=== PATIENT | female | born 1950 | race Caucasian/White ===

== ENCOUNTER → 2016-12-05 | Outpatient (CLI) | payer MEDICARE, MEDICAID ==
[2016-12-05 10:11] LABS: ABSOLUTE EOSINOPHILS # (AUTO) 0.1 10^3/uL (0.0-0.6); ABSOLUTE LYMPHOCYTES (AUTO) 2.5 10^3/uL (0.5-4.7); ABSOLUTE MONOCYTES (AUTO) 0.5 10^3/uL (0.1-1.4); ABSOLUTE NEUT (AUTO) 5.1 10^3/uL (1.7-8.2); BASOPHILS % (AUTO) 0.2 % (0-2); EOSINOPHILS % (AUTO) 1.2 % (0-6); HEMATOCRIT 37.5 % (36.0-47.0); HEMOGLOBIN 12.9 g/dL (12.0-15.5); HGB HCT DIFFERENCE 1.2; LYMPHOCYTES % (AUTO) 30.5 % (13-45); MEAN CORPUSCULAR HEMOGLOBIN 30.3 pg (27.0-33.4); MEAN CORPUSCULAR HGB CONC 34.3 g/dL (32.0-36.0); MEAN CORPUSCULAR VOLUME 88 fl (80-97); MONOCYTES % (AUTO) 6.6 % (3-13); RED BLOOD COUNT 4.24 10^6/uL (3.72-5.28); RED CELL DISTRIBUTION WIDTH 14.5 % (11.5-14.0); SEGMENTED NEUTROPHILS % (AUTO) 61.5 % (42-78); WHITE BLOOD COUNT 8.3 10^3/uL (4.0-10.5)
[2016-12-05 10:14] LABS: APPEARANCE,URINE CLEAR; BILIRUBIN,URINE NEGATIVE (NEGATIVE); GLUCOSE, URINE NEGATIVE (NEGATIVE); KETONES,URINE NEGATIVE (NEGATIVE); LEUKOCYTE ESTERASE,URINE SMALL (NEGATIVE); NITRITE,URINE NEGATIVE (NEGATIVE); PROTEIN,URINE NEGATIVE (NEGATIVE); URINE SPECIFIC GRAVITY 1.015; UROBILINOGEN,URINE NEGATIVE mg/dL (<2.0)
[2016-12-05 10:39] LABS: ANION GAP 9 (5-19); BLOOD UREA NITROGEN 32 mg/dL (7-20); CALCIUM 9.1 mg/dL (8.4-10.2); CARBON DIOXIDE 27 mmol/L (22-30); CHLORIDE 105 mmol/L (98-107); CREATININE RESULT 1.08 mg/dL (0.52-1.25); GLUCOSE 104 mg/dL (75-110); POTASSIUM 4.5 mmol/L (3.6-5.0); SODIUM 140.6 mmol/L (137-145)
--- NOTE | 2016-12-05 13:39 | EKG REPORT ---
SEVERITY:- ABNORMAL ECG - SINUS BRADYCARDIA LEFT VENTRICULAR HYPERTROPHY BORDERLINE T ABNORMALITIES, INFERIOR LEADS : Confirmed by: Francisco Monsalve MD 05-Dec-2016 13:39:19
--- NOTE | 2016-12-05 14:58 | RADIOLOGY REPORT (SQ) ---
EXAM DESCRIPTION: CHEST PA/LATERAL COMPLETED DATE/TIME: 12/05/2016 9:44 am REASON FOR STUDY: PRE OP COMPARISON: 11/28/2013. EXAM PARAMETERS: NUMBER OF VIEWS: two views TECHNIQUE: Digital Frontal and Lateral radiographic views of the chest acquired. RADIATION DOSE: NA LIMITATIONS: none FINDINGS: LUNGS AND PLEURA: No opacities, masses or pneumothorax. No pleural effusion. MEDIASTINUM AND HILAR STRUCTURES: No masses or contour abnormalities. HEART AND VASCULAR STRUCTURES: Heart normal size. No evidence for failure. BONES: No acute findings. Degenerative changes in the spine. HARDWARE: Right shoulder prosthesis. OTHER: No other significant finding. IMPRESSION: NO SIGNIFICANT RADIOGRAPHIC FINDING IN THE CHEST. TECHNICAL DOCUMENTATION: JOB ID: [id number] [employer]- All Rights Reserved
== END ==
LOC: OD 08:51
PROVIDERS: ATTEND Orthopaedic Surgery
DX: Z01.810 Encounter for preprocedural cardiovascular examination (principal); Z01.812 Encounter for preprocedural laboratory examination; Z01.818 Encounter for other preprocedural examination
CPT/HCPCS: 36415; 71020; 80048; 81001; 85025; 93005; 93010

== ENCOUNTER 2017-01-02 07:43 | Inpatient (IN) | payer MEDICARE, MEDICAID ==
[~2017-01-02 07:43] MED LIST: DEXAMETHASONE SOD PHOSPHATE INJ 4 MG/1 ML VIAL ONE; GLYCOPYRROLATE INJ 0.4 MG/2 ML VIAL ONE; IBUPROFEN 800 MG/NS 250 ML IV PRN; LANSOPRAZOLE 15 MG TAB.RAP.DR PO PRN; LIDOCAINE 0.5% INJ-PF (5 MG/ML) 50 ML SDV SUBCUT PRN; NEOSTIGMINE METHYLSULFATE 10 MG/10 ML VIAL ONE; NORMAL SALINE 1000 ML (RENAL PATIENTS) IV PRN; ONDANSETRON HCL INJ/PF 4 MG/2 ML SDV ONE; OXYCODONE HCL SR 10 MG TABLET PO PRN; ROCURONIUM BROMIDE INJ 50 MG/5 ML VIAL IV ONE; SUCCINYLCHOLINE CHLORIDE INJ 200 MG/10 ML VIAL ONE; VANCOMYCIN HCL 1,000 MG in DEXTROSE 5%-WATER 250 ML IV PRN
[2017-01-02] MEDS ORDERED: BUPIVACAINE INJ/PF LIPOSOME/PF 266 MG/20 ML SDV ONE (09:30)
[2017-01-02] MEDS ORDERED: CEFAZOLIN INJ 1 GM VIAL ONE (10:05)
[2017-01-02] MEDS ORDERED: MEPERIDINE HCL/PF INJ 25 MG/1 ML DISP.SYRIN IV PRN (13:26)
[2017-01-02] MEDS ORDERED: PROMETHAZINE HCL INJ 25 MG/1 ML VIAL IV PRN ×2 (13:26)
[2017-01-02] MEDS ORDERED: DIPHENHYDRAMINE HCL 50 MG/ML VIAL IV PRN (13:26)
[2017-01-02] MEDS ORDERED: FENTANYL CITRATE INJ/PF 100 MCG/2 ML AMPUL IV PRN ×3 (13:26)
--- NOTE | 2017-01-02 14:23 | Operative Report ---
Operative Report DATE OF SURGERY: 01/02/17 PREOPERATIVE DIAGNOSIS: Left rotator cuff arthropathy OPERATION: Left reverse shoulder arthroplasty SURGEON: ADAN LOPEZ 1ST [employer] SPECIALIST: SENAIT PARADA ANESTHESIA: GA TISSUE REMOVED OR ALTERED: Bone to pathology ESTIMATED BLOOD LOSS: 150 PROCEDURE: With the patient in a beachchair position on the operating table the left upper extremity forequarter prepped and draped in a sterile fashion. A standard deltopectoral approach the shoulders taken. A lesser tuberosity osteotomy was performed in the subsequent humeral head delivered into the field. The humeral canal is reamed using cylindrical reamers until a 12 reamer seated. A cutting guide was used to resect the articular surface. The humerus was then broached until a 12 trial broach is seated. Now attention is turned to the glenoid. The glenoid is exposed and soft tissue including the labrum was removed. A pin is placed into the anterior inferior quadrant and this is used as a central portion for the adenoid baseplate. Subsequently a 28 mm glenoid base plate is secured with a central screw followed by 4 peripheral screws. This is solid. Next the 36 mm Senait fear is impacted onto the baseplate. This is secure. Attention turned back to the humerus. The humeral trial was removed. The final 12 mm humeral stem was impacted into the canal. A trial reduction was performed with a 4 x 36 mm humeral insert and a36 mm humeral cup are connected and then impacted into the stem. The shoulder is reduced. The lesser tuberosity osteotomy is repaired using interrupted 2-0 FiberWire suture. Wound is irrigated. The fascial layer, subcutaneous layer both repaired using Vicryl and the skin with sepideh. A sterile dressing and shoulder immobilizer applied and the patient's return to the PACU in satisfactory condition.
[2017-01-02] MEDS ORDERED: ONDANSETRON HCL INJ/PF 4 MG/2 ML SDV IV PRN (14:52)
[2017-01-02] MEDS ORDERED: RINGERS SOLUTION,LACTATED 1,000 ML IV PRN (14:53)
[2017-01-02] MEDS ORDERED: MORPHINE SULFATE 10 MG/ML INJ IV PRN (15:00)
[2017-01-02] MEDS ORDERED: PROMETHAZINE HCL INJ 25 MG/1 ML VIAL ONE (15:14)
[2017-01-02] MEDS ORDERED: TRANEXAMIC ACID INJ/PF 1,000 MG/10 ML SDV IV ONE ×2 (15:28→16:00)
[2017-01-02] MEDS ORDERED: MONTELUKAST SODIUM 10 MG TABLET PO SCH (17:00)
[2017-01-02] MEDS: METFORMIN HCL 500 MG TABLET PO SCH (17:45)
[2017-01-02] MEDS: IBUPROFEN 800 MG in NORMAL SALINE 250 ML IV SCH (21:41)
[2017-01-02] MEDS: OXYCODONE HCL IR 5 MG TABLET PO PRN (21:42)
[2017-01-02] MEDS ORDERED: SIMVASTATIN 10 MG TABLET PO SCH (22:00)
[2017-01-03] MEDS ORDERED: VANCOMYCIN HCL 1,000 MG in DEXTROSE 5%-WATER 250 ML IV ONE (01:00)
[2017-01-03] MEDS: OXYCODONE HCL IR 5 MG TABLET PO PRN ×2 (04:15→10:32)
[2017-01-03 05:28] LABS: HEMATOCRIT 31.7 % (36.0-47.0); HEMOGLOBIN 10.7 g/dL (12.0-15.5); HGB HCT DIFFERENCE 0.4; MEAN CORPUSCULAR HEMOGLOBIN 29.9 pg (27.0-33.4); MEAN CORPUSCULAR HGB CONC 33.7 g/dL (32.0-36.0); MEAN CORPUSCULAR VOLUME 89 fl (80-97); RED BLOOD COUNT 3.56 10^6/uL (3.72-5.28); RED CELL DISTRIBUTION WIDTH 14.7 % (11.5-14.0); WHITE BLOOD COUNT 9.7 10^3/uL (4.0-10.5)
[2017-01-03] MEDS: IBUPROFEN 800 MG in NORMAL SALINE 250 ML IV SCH (05:41)
[2017-01-03 05:50] LABS: ANION GAP 10 (5-19); BLOOD UREA NITROGEN 27 mg/dL (7-20); CALCIUM 8.3 mg/dL (8.4-10.2); CARBON DIOXIDE 21 mmol/L (22-30); CHLORIDE 108 mmol/L (98-107); CREATININE RESULT 1.11 mg/dL (0.52-1.25); GLUCOSE 165 mg/dL (75-110); POTASSIUM 4.4 mmol/L (3.6-5.0); SODIUM 138.7 mmol/L (137-145)
--- NOTE | 2017-01-03 07:12 | PDOC DISCHARGE SUMMARY ---
General - Admit/Disc Date/PCP Admission Date/Primary Care Provider: 01/02/17 10:56 MEKA ESQUIVEL MD Discharge Date: 01/03/17 - Discharge Diagnosis (1) Arthritis of left shoulder region Is this a current diagnosis for this admission?: Yes - Additional Information Resuscitation Status: Full Code Discharge Diet: As Tolerated, Regular Discharge Activity: Activity As Tolerated, No Driving, Slowly Increase Activity - Allow left upper extremity to remain in sling for the next 2 weeks until returning to [facility] for surgery for postoperative appointment. Do not drive for the next 6 weeks and do not submerge her surgical wound underwater., No tub bath, Other - Increase activity as tolerated. Do not submerge your surgical wound underwater. He may not drive for the next 6 weeks. Allow left lower Home Medications: Aspirin [Aspirin 81 mg Chewable Tablet] 81 mg PO QAM 05/24/11 Omeprazole [Prilosec] 20 mg PO QAM 05/24/11 Simvastatin [Zocor 20 mg Tablet] 20 mg PO QHS 05/24/11 Glimepiride [Amaryl 1 mg Tablet] 1 mg PO DAILY 11/27/13 Loratadine 10 mg PO DAILY 12/19/16 Losartan Potassium 100 mg PO DAILY 12/19/16 Metoprolol Tartrate 25 mg PO DAILY 12/19/16 Montelukast Sodium 10 mg PO HSP 12/19/16 Metformin HCl [Metformin HCl ER] 2,000 mg PO ACSUPPER 01/02/17 Ibuprofen [Caldolor Inj 800 mg/8 ml Vial] 800 mg IV Q8 ml 01/03/17 Oxycodone HCl [Oxy-Ir 5 mg Tablet] 5 mg PO Q6HP PRN tablet 01/03/17 History of Present Illness History of Present Illness: TICO NG is a 66 year old female with left shoulder arthritis admitted for reverse total left shoulder arthroplasty. Hospital Course Hospital Course: 66-year-old white female was admitted to the OR and underwent a reverse total left shoulder arthroplasty. She was returned to the floor and seemed by occupational therapy and nursing staff to assist with pain management. She makes progress and is not currently in any pain and will be discharged home with home health nursing, home occupational therapy and will follow up with [facility] for surgery 2 weeks postoperatively for staple removal and follow-up appointment. Physical Exam Vital Signs: Temp Pulse Resp BP Pulse Ox 37.0 C 67 18 149/63 H 99 01/03/17 03:29 01/03/17 03:29 01/03/17 03:29 01/03/17 03:29 01/03/17 03:29 Intake & Output 01/02/17 01/03/17 01/04/17 06:59 06:59 06:59 Intake Total 3384 Output Total 1650 Balance 1734 Weight 126.6 kg General appearance: PRESENT: no acute distress, well-developed, well-nourished Head exam: PRESENT: atraumatic, normocephalic Vascular exam: PRESENT: normal capillary refill Additional comments: Left upper extremity is in upper extremity sling with postop wound site dressing in place. The dressing is clean and dry and upper extremities exhibit brisk capillary refill. She exhibits good progress with passive and active range of motion postoperatively. And her sensory and motor function are intact. Neurological exam: PRESENT: alert, awake, oriented to person, oriented to place , oriented to time, oriented to situation, CN II-XII grossly intact. ABSENT: motor sensory deficit Skin exam: PRESENT: dry, intact, warm. ABSENT: cyanosis, rash Results Laboratory Results: 01/03/17 05:14 01/03/17 05:14 01/02/17 01/02/17 01/03/17 11:27 11:27 05:14 WBC 9.7 RBC 3.56 L Hgb 10.7 L Hct 31.7 L MCV 89 MCH 29.9 MCHC 33.7 RDW 14.7 H Plt Count 123 L Sodium Potassium Chloride Carbon Dioxide Anion Gap BUN Creatinine Est GFR ( Amer) Est GFR (Non-Af Amer) Glucose 96 Calcium Blood Type A POSITIVE Antibody Screen NEGATIVE 01/03/17 05:14 WBC RBC Hgb Hct MCV MCH MCHC RDW Plt Count Sodium 138.7 Potassium 4.4 Chloride 108 H Carbon Dioxide 21 L Anion Gap 10 BUN 27 H Creatinine 1.11 Est GFR ( Amer) > 60 Est GFR (Non-Af Amer) 49 L Glucose 165 H Calcium 8.3 L Blood Type Antibody Screen Plan Discharge Plan: 66-year-old white female status post reverse total left shoulder arthroplasty will be discharged home with home health nursing and home health occupational therapy. Home health nurse services will change the OpSite dressing will remain in place until follow-up appointment in 2 weeks with [facility]. At this follow-up appointment sepideh were removed and left shoulder will be reevaluated postoperatively.
[2017-01-03] MEDS ORDERED: ASPIRIN 81 MG TABLET, CHEWABLE PO SCH (08:00)
[2017-01-03] MEDS ORDERED: (PENDING PHARMACY ID) (Omeprazole [Prilosec] 20 MG) PO SCH (08:00)
[2017-01-03] MEDS ORDERED: LANSOPRAZOLE 15 MG TAB.RAP.DR PO SCH (08:00)
[2017-01-03] MEDS: METFORMIN HCL 500 MG TABLET PO SCH (08:32)
[2017-01-03] MEDS ORDERED: LOSARTAN POTASSIUM 50 MG TABLET PO SCH (10:00)
[2017-01-03] MEDS ORDERED: GLIMEPIRIDE 1 MG TABLET PO SCH (10:00)
[2017-01-03] MEDS ORDERED: LORATADINE 10 MG TABLET PO SCH (10:00)
[2017-01-03] MEDS ORDERED: (PENDING PHARMACY ID) (Losartan Potassium [Losartan Potassium] 100 MG) PO SCH (10:00)
[2017-01-03] MEDS ORDERED: METOPROLOL TARTRATE 25 MG TABLET PO SCH (10:00)
[2017-01-03 13:29] VITALS: BP 149/63
[2017-01-03] MEDS ORDERED: (PENDING PHARMACY ID) (Metformin Hcl [Metformin Hcl Er] 2,000 MG) PO SCH (16:00)
== END 2017-01-03 14:12 | disposition home health service (06) | DRG 483 ==
LOC: INOR 10:56 → 4S 15:59
PROVIDERS: ADMIT Orthopaedic Surgery; ATTEND Orthopaedic Surgery
PROC: 0RRK00Z Replacement of Left Shoulder Joint with Reverse Ball and Socket Synthetic Substitute, Open Approach (ICD-10-PCS; principal; 2017-01-02 13:15)
DX: M19.012 Primary osteoarthritis, left shoulder (principal); E11.9 Type 2 diabetes mellitus without complications; I10 Essential (primary) hypertension; Z90.49 Acquired absence of other specified parts of digestive tract; Z90.710 Acquired absence of both cervix and uterus; Z85.42 Personal history of malignant neoplasm of other parts of uterus; Z79.84 Long term (current) use of oral hypoglycemic drugs; Z79.82 Long term (current) use of aspirin; Z88.8 Allergy status to other drugs, medicaments and biological substances; Z88.6 Allergy status to analgesic agent
CPT/HCPCS: 1638; 36415; 80048; 82947; 83036; 85027; 86850; 86900; 86901; 88304; 88311; C9290; J0330; J0690; J1100; J1741; J2270; J2405; J2550; J3370; J3490; J7050; J7060; L3650

== ENCOUNTER 2017-06-30 14:40 | Emergency (ER) | payer MEDICARE, MEDICAID ==
--- NOTE | 2017-06-30 14:58 | ER Document Report ---
ED Cardiac - General Chief Complaint: Chest Pain Stated Complaint: CHEST PAIN Time Seen by Provider: 06/30/17 14:56 Notes: The patient is a 67-year-old female, PMHx CAD with stent, HTN, NIDDM, who presents from the cardiovascular center after she began to have new onset A. fib during a chemical stress test with some chest pressure and palpitations. She received aspirin and 2 nitro by EMS prior to arrival with relief of her chest pain. Patient has never been in A. fib before and is not on any blood thinners. She does take metoprolol twice a day and took it this morning, but she says this is for her blood pressure. On arrival to the ER, the patient has converted back into sinus rhythm, but she still feels like her heart is racing. On the monitor, her heart rate is found to be in the 70s regular. Patient was having a stress test due to several episodes of low sternal pain in the past 5 days. Says the pain only lasts for a few seconds about once a day and describes it as sharp. She denies syncope, shortness of breath, fevers, back pain, leg swelling, hemoptysis, numbness, tingling, abdominal pain, nausea or vomiting. TRAVEL OUTSIDE OF THE [place] IN LAST 30 DAYS: No - Related Data Allergies/Adverse Reactions: codeine [Codeine] Allergy (Intermediate, Verified 01/02/17 11:17) GI upset Past Medical History - General Information source: Patient - Social History Smoking Status: Unknown if Ever Smoked Family History: Reviewed & Not Pertinent - Past Medical History Cardiac Medical History: Reports: Hx Coronary Artery Disease, Hx Hypercholesterolemia - meds x 8 years, Hx Hypertension - meds x 10 years, Hx Heart Murmur - states SBE prophylaxis required Denies: Hx Atrial Fibrillation, Hx Congestive Heart Failure, Hx Heart Attack , Hx Peripheral Vascular Disease, Hx Pulmonary Embolism Pulmonary Medical History: Reports: Hx Bronchitis - frequency has decreased, no longer exposed to 2nd smoke Denies: Hx Asthma, Hx COPD, Hx Pneumonia, Hx Respiratory Failure, Hx Sleep Apnea, Hx Tuberculosis Neurological Medical History: Denies: Hx Cerebrovascular Accident, Hx Seizures Endocrine Medical History: Reports: Hx Diabetes Mellitus Type 2. Denies: Hx Graves' Disease, Hx Hyperthyroidism, Hx Hypothyroidism Renal/ Medical History: Reports: Hx Kidney Stones - 2011, denies surgical intervention. Denies: Hx End Stage Renal Disease, Hx Ovarian Cysts, Hx Peritoneal Dialysis, Hx Pelvic Inflammatory Disease Malignancy Medical History: Reports: Hx Cervical Cancer. Denies: Hx Breast Cancer, Hx Leukemia, Hx Lung Cancer, Hx Ovarian Cancer GI Medical History: Reports: Hx Gastroesophageal Reflux Disease - meds x 4 years. Denies: Hx Crohn's Disease, Hx Hiatal Hernia, Hx Irritable Bowel, Hx Liver Failure, Hx Pancreatitis, Hx Ulcer Musculoskeltal Medical History: Reports Hx Arthritis, Denies Hx Fibromyalgia, Denies Hx Multiple Sclerosis, Denies Hx Muscular Dystrophy, Reports Hx Musculoskeletal Deformity, Reports Hx Musculoskeletal Trauma Psychiatric Medical History: Denies: Hx Bipolar Disorder, Hx Dementia, Hx Depression, Hx Post Traumatic Stress Disorder, Hx Schizophrenia Traumatic Medical History: Denies: Hx Fractures Infectious Medical History: Denies: Hx HIV Past Surgical History: Reports: Hx Cardiac Catheterization - 1 stent, Hx Cholecystectomy - lap 2000, Hx Hysterectomy, Hx Orthopedic Surgery - bilateral knee replacement, shoulder replacement. Denies: Hx Appendectomy, Hx Bowel Surgery, Hx Section, Hx Colostomy, Hx Coronary Artery Bypass Graft, Hx Gastric Bypass Surgery, Hx Herniorrhaphy, Hx Mastectomy, Hx Pacemaker, Hx Tonsillectomy, Hx Tubal Ligation - Immunizations Immunizations up to date: No Hx Diphtheria, Pertussis, Tetanus Vaccination: No Hx Pneumococcal Vaccination: 05/08/09 Review of Systems - Review of Systems Notes: REVIEW OF SYSTEMS: CONSTITUTIONAL: -fevers, -chills EENT: -eye pain, -difficulty swallowing, -nasal congestion CARDIOVASCULAR: +chest pain, -syncope. RESPIRATORY: -cough, -SOB GASTROINTESTINAL: -abdominal pain, -nausea, -vomiting, -diarrhea GENITOURINARY: -dysuria, -hematuria MUSCULOSKELETAL: -back pain, -neck pain SKIN: -rash or skin lesions. HEMATOLOGIC: -easy bruising or bleeding. LYMPHATIC: -swollen, enlarged glands. NEUROLOGICAL: -altered mental status or loss of consciousness, -headache, - neurologic symptoms PSYCHIATRIC: -anxiety, -depression. ALL OTHER SYSTEMS REVIEWED AND NEGATIVE. Physical Exam - Vital signs Vitals: Resp 18 06/30/17 14:57 - Notes Notes: PHYSICAL EXAMINATION: GENERAL: Well-appearing, well-nourished and in no acute distress. HEAD: Atraumatic, normocephalic. EYES: Pupils equal round and reactive to light, extraocular movements intact, sclera anicteric, conjunctiva are normal. ENT: nares patent, oropharynx clear without exudates. Moist mucous membranes. NECK: Normal range of motion, supple without lymphadenopathy LUNGS: Breath sounds clear to auscultation bilaterally and equal. No wheezes rales or rhonchi. HEART: Regular rate and rhythm without murmurs ABDOMEN: Soft, nontender, normoactive bowel sounds. No guarding, no rebound. No masses appreciated. EXTREMITIES: Normal range of motion, no pitting or edema. No cyanosis. NEUROLOGICAL: Cranial nerves grossly intact. Normal speech, normal gait. Normal sensory and motor exams. PSYCH: Normal mood, normal affect. SKIN: Warm, Dry, normal turgor, no rashes or lesions noted. Course - Re-evaluation Re-evalutation: 67-year-old female with known coronary artery disease and stent presents after she had chest pain during a chemical stress test earlier today and went into new onset A. fib. The spontaneous converted to sinus rhythm on arrival to the ER and her chest pain resolved. Spoke to cardiology on-call, Dr. Kirkpatrick, and he recommends transfer to facility with interventional cardiology capabilities. First troponin negative. 06/30/17 17:09 Spoke to [facility] and awaiting callback. 06/30/17 17:30 [facility] called back, but I was in a critical patient's room and unable to accept the call. 06/30/17 18:[address] Darden ([facility]) and he has accepted the patient. He recommends anticoagulation if the chest pain returns or if troponins turn positive. Awaiting bed assignment. Patient continues without chest pain. 06/30/17 22:28 Transport in ED. Patient reevaluated and remains chest pain- free. She is stable for transport. - Vital Signs Vital signs: Temp Pulse Resp BP Pulse Ox 98.6 F 22 H 155/81 H 96 06/30/17 19:49 06/30/17 21:00 06/30/17 19:53 06/30/17 21:00 - Laboratory Result Diagrams: 06/30/17 15:40 06/30/17 15:40 Laboratory results interpreted by me: 06/30/17 06/30/17 15:40 15:40 RDW 16.1 H Plt Count 146 L Potassium 3.5 L BUN 21 H Est GFR (Non-Af Amer) 57 L Creatine Kinase 171 H - Diagnostic Test Radiology reviewed: Image reviewed, Reports reviewed - EKG Interpretation by Me EKG shows normal: Sinus rhythm Rate: Normal Rhythm: Arrthymia Discharge - Discharge Clinical Impression: Positive cardiac stress test, Transient atrial fibrillation Chest pain Qualifiers: Chest pain type: unspecified Qualified Code(s): R07.9 - Chest pain, unspecified Condition: Stable Disposition: [facility] Referrals: MEKA ESQUIVEL MD [Primary Care Provider] - Follow up as needed
--- NOTE | 2017-06-30 15:46 | RADIOLOGY REPORT (SQ) ---
EXAM DESCRIPTION: CHEST SINGLE VIEW COMPLETED DATE/TIME: 06/30/2017 3:30 pm REASON FOR STUDY: chest pain COMPARISON: Two-view chest 12/05/2016 EXAM PARAMETERS: NUMBER OF VIEWS: One view. TECHNIQUE: Single frontal radiographic view of the chest acquired. RADIATION DOSE: NA LIMITATIONS: None. FINDINGS: LUNGS AND PLEURA: No opacities, masses or pneumothorax. No pleural effusion. MEDIASTINUM AND HILAR STRUCTURES: No masses. Contour normal. HEART AND VASCULAR STRUCTURES: Stable mild cardiomegaly BONES: Bilateral shoulder replacements HARDWARE: None in the chest. OTHER: No other significant finding. IMPRESSION: NO ACUTE RADIOGRAPHIC FINDING IN THE CHEST. TECHNICAL DOCUMENTATION: JOB ID: [id number] [employer]- All Rights Reserved Reading location - IP/workstation name: [email or web address]
[2017-06-30 16:01] LABS: ABSOLUTE EOSINOPHILS # (AUTO) 0.1 10^3/uL (0.0-0.6); ABSOLUTE MONOCYTES (AUTO) 0.5 10^3/uL (0.1-1.4); ABSOLUTE NEUT (AUTO) 5.6 10^3/uL (1.7-8.2); BASOPHILS % (AUTO) 0.3 % (0-2); EOSINOPHILS % (AUTO) 1.6 % (0-6); HEMOGLOBIN 12.9 g/dL (12.0-15.5); LYMPHOCYTES % (AUTO) 24.1 % (13-45); MEAN CORPUSCULAR HEMOGLOBIN 28.2 pg (27.0-33.4); MEAN CORPUSCULAR VOLUME 85 fl (80-97); MONOCYTES % (AUTO) 6.5 % (3-13); PLATELET COUNT 146 10^3/uL (150-450); RED BLOOD COUNT 4.57 10^6/uL (3.72-5.28); RED CELL DISTRIBUTION WIDTH 16.1 % (11.5-14.0); SEGMENTED NEUTROPHILS % (AUTO) 67.5 % (42-78); TOTAL CELLS COUNTED % (AUTO) 100 %; WHITE BLOOD COUNT 8.2 10^3/uL (4.0-10.5)
[2017-06-30 16:23] LABS: ALANINE AMINOTRANSFERASE 38 U/L (9-52); ALBUMIN 4.2 g/dL (3.5-5.0); ALKALINE PHOSPHATASE 94 U/L (38-126); ANION GAP 11 (5-19); ASPARTATE AMINO TRANSFERASE 33 U/L (14-36); BILIRUBIN,DIRECT 0.4 mg/dL (0.0-0.4); BILIRUBIN,TOTAL 1.2 mg/dL (0.2-1.3); BLOOD UREA NITROGEN 21 mg/dL (7-20); CALCIUM 9.1 mg/dL (8.4-10.2); CARBON DIOXIDE 24 mmol/L (22-30); CHLORIDE 107 mmol/L (98-107); CREATINE KINASE 171 U/L (30-135); GLUCOSE 99 mg/dL (75-110); POTASSIUM 3.5 mmol/L (3.6-5.0); SODIUM 141.7 mmol/L (137-145)
[2017-06-30] MEDS ORDERED: POTASSIUM CHLORIDE 10 MEQ TABLET.SA PO ONE ×2 (16:50→20:10)
[2017-06-30] MEDS ORDERED: FENTANYL CITRATE INJ/PF 100 MCG/2 ML AMPUL IV ONE (17:06)
--- NOTE | 2017-06-30 19:01 | EKG REPORT ---
SEVERITY:- BORDERLINE ECG - SINUS ARRHYTHMIA, RATE 55-79 VENTRICULAR PREMATURE COMPLEX BORDERLINE LEFT AXIS DEVIATION BORDERLINE R WAVE PROGRESSION, ANTERIOR LEADS : Confirmed by: Francisco Monsalve MD 30-Jun-2017 19:00:43
[2017-06-30 22:52] VITALS: BP 161/68
== END 2017-06-30 22:40 | disposition short-term general hospital (02) ==
LOC: ER 14:40
DX: R94.39 Abnormal result of other cardiovascular function study (principal); R07.9 Chest pain, unspecified; I48.91 Unspecified atrial fibrillation; R00.2 Palpitations
CPT/HCPCS: 93005; 99285; 36415; 82550; 84443; 85025; 80053; 84484; 71045; 93010; A9270

== ENCOUNTER → 2018-04-04 | Outpatient (CLI) | payer MEDICARE, MEDICAID ==
[2018-04-04 11:15] LABS: ANION GAP 14 (5-19); BLOOD UREA NITROGEN 32 mg/dL (7-20); CALCIUM 8.8 mg/dL (8.4-10.2); CARBON DIOXIDE 24 mmol/L (22-30); CHLORIDE 101 mmol/L (98-107); GLUCOSE 224 mg/dL (75-110); POTASSIUM 4.3 mmol/L (3.6-5.0); SODIUM 138.7 mmol/L (137-145)
== END ==
LOC: OD 09:52
PROVIDERS: ATTEND Internal Medicine
DX: I25.118 Atherosclerotic heart disease of native coronary artery with other forms of angina pectoris (principal); I10 Essential (primary) hypertension; I48.0 Paroxysmal atrial fibrillation; Z98.61 Coronary angioplasty status; E11.9 Type 2 diabetes mellitus without complications; R94.31 Abnormal electrocardiogram [ECG] [EKG]; I34.0 Nonrheumatic mitral (valve) insufficiency; E66.8 Other obesity; R60.0 Localized edema; Z79.899 Other long term (current) drug therapy
CPT/HCPCS: 36415; 80048

== ENCOUNTER 2018-05-15 09:53 | Inpatient (IN) | payer MEDICARE, MEDICAID ==
--- NOTE | 2018-05-15 10:16 | ER Document Report ---
ED Medical Screen (RME) - General Chief Complaint: Breathing Difficulty Stated Complaint: SHORTNESS OF BREATH Time Seen by Provider: 05/15/18 10:08 Notes: RAPID MEDICAL EVALUATION DISCLOSURE I have seen this patient as part of a Rapid Medical Evaluation and, if applicable, placed any initially appropriate orders. The patient will be seen and fully evaluated, including a full history and physical exam, by a provider (in Main ED or Fast Track) when a room becomes available. 68-year-old female here with complaints ongoing for several weeks of dry cough lightheadedness dyspnea on exertion generalized weakness fatigue chest pain shortness of breath as well as pale color to her skin. Her daughter states that she is stubborn and that she would not agree to come in until now. The daughter has noted that she has had a pale color to her skin. She has required one previous blood transfusion many years ago. She does take a blood thinner, Eliquis, for atrial fibrillation. EXAM Bibasilar rales/rhonchi RRR Pallor visualized TRAVEL OUTSIDE OF THE [place] IN LAST 30 DAYS: No - Related Data Allergies/Adverse Reactions: codeine [Codeine] Allergy (Intermediate, Verified 05/15/18 09:54) GI upset Past Medical History - Past Medical History Cardiac Medical History: Reports: Hx Coronary Artery Disease, Hx Hypercholesterolemia - meds x 8 years, Hx Hypertension - meds x 10 years, Hx Heart Murmur - states SBE prophylaxis required Denies: Hx Atrial Fibrillation, Hx Congestive Heart Failure, Hx Heart Attack, Hx Peripheral Vascular Disease, Hx Pulmonary Embolism Pulmonary Medical History: Reports: Hx Bronchitis - frequency has decreased, no longer exposed to 2nd smoke Denies: Hx Asthma, Hx COPD, Hx Pneumonia, Hx Respiratory Failure, Hx Sleep Apnea, Hx Tuberculosis Neurological Medical History: Denies: Hx Cerebrovascular Accident, Hx Seizures Endocrine Medical History: Reports: Hx Diabetes Mellitus Type 2. Denies: Hx Graves' Disease, Hx Hyperthyroidism, Hx Hypothyroidism Renal/ Medical History: Reports: Hx Kidney Stones - 2011, denies surgical intervention. Denies: Hx End Stage Renal Disease, Hx Ovarian Cysts, Hx Peritone al Dialysis, Hx Pelvic Inflammatory Disease Malignancy Medical History: Reports: Hx Cervical Cancer. Denies: Hx Breast Cancer, Hx Leukemia, Hx Lung Cancer, Hx Ovarian Cancer GI Medical History: Reports: Hx Gastroesophageal Reflux Disease - meds x 4 years. Denies: Hx Crohn's Disease, Hx Hiatal Hernia, Hx Irritable Bowel, Hx Liver Failure, Hx Pancreatitis, Hx Ulcer Musculoskeltal Medical History: Reports Hx Arthritis, Denies Hx Fibromyalgia, Denies Hx Multiple Sclerosis, Denies Hx Muscular Dystrophy, Reports Hx Musculos keletal Deformity, Reports Hx Musculoskeletal Trauma Psychiatric Medical History: Denies: Hx Bipolar Disorder, Hx Dementia, Hx Depression, Hx Post Traumatic Stress Disorder, Hx Schizophrenia Traumatic Medical History: Denies: Hx Fractures Infectious Medical History: Denies: Hx HIV Past Surgical History: Reports: Hx Cardiac Catheterization - 1 stent, Hx Cholecystectomy - lap 2000, Hx Hysterectomy, Hx Orthopedic Surgery - bilateral knee replacement, shoulder replacement. Denies: Hx Appendectomy, Hx Bowel Surgery, Hx Section, Hx Colostomy, Hx Coronary Artery Bypass Graft, Hx Gastric Bypass Surgery, Hx Herniorrhaphy, Hx Mastectomy, Hx Pacemaker, Hx Tonsillectomy, Hx Tubal Ligation - Immunizations Immunizations up to date: No Hx Diphtheria, Pertussis, Tetanus Vaccination: No Physical Exam - Vital signs Vitals: Temp Pulse Resp BP Pulse Ox 98.7 F 92 24 H 149/65 H 100 05/15/18 10:02 05/15/18 10:05/15/18 10:02 05/15/18 10:02 05/15/18 10:02 Course - Vital Signs Vital signs: Temp Pulse Resp BP Pulse Ox 98.7 F 92 24 H 149/65 H 100 05/15/18 10:02 05/15/18 10:02 05/15/18 10:02 05/15/18 10:02 05/15/18 10:02 Doctor's Discharge - Discharge Referrals: MAKEDA SILVA MD [Primary Care Provider] - Follow up as needed
--- NOTE | 2018-05-15 10:35 | RADIOLOGY REPORT (SQ) ---
EXAM DESCRIPTION: CHEST 2 VIEWS COMPLETED DATE/TIME: 05/15/2018 10:26 am REASON FOR STUDY: CP SOB COMPARISON: None. EXAM PARAMETERS: NUMBER OF VIEWS: two views TECHNIQUE: Digital Frontal and Lateral radiographic views of the chest acquired. RADIATION DOSE: NA LIMITATIONS: none FINDINGS: LUNGS AND PLEURA: No opacities, masses or pneumothorax. No pleural effusion. MEDIASTINUM AND HILAR STRUCTURES: No masses or contour abnormalities. HEART AND VASCULAR STRUCTURES: Heart normal size. No evidence for failure. BONES: No acute findings. Degenerative changes in the spine. HARDWARE: Bilateral shoulder prostheses. Clips in the upper abdomen. OTHER: No other significant finding. IMPRESSION: NO ACUTE RADIOGRAPHIC FINDING IN THE CHEST. TECHNICAL DOCUMENTATION: JOB ID: [id number] 06/30/2017. 2010 [employer]- All Rights Reserved Reading location - IP/workstation name: [email or web address]
[2018-05-15] MEDS ORDERED: NORMAL SALINE 500 ML IV ONE (10:57)
[2018-05-15 11:08] LABS: INTERNATIONAL RATION (INR) 1.09; PROTHROMBIN TIME 14.6 SEC (11.4-15.4)
[2018-05-15 11:09] LABS: PARTIAL THROMBOPLASTIN TIME 27.5 SEC (23.5-35.8)
[2018-05-15 11:27] LABS: ALANINE AMINOTRANSFERASE 22 U/L (9-52); ALBUMIN 3.9 g/dL (3.5-5.0); ALKALINE PHOSPHATASE 71 U/L (38-126); ANION GAP 12 (5-19); ASPARTATE AMINO TRANSFERASE 29 U/L (14-36); BILIRUBIN,DIRECT 0.3 mg/dL (0.0-0.4); BILIRUBIN,TOTAL 0.7 mg/dL (0.2-1.3); BLOOD UREA NITROGEN 27 mg/dL (7-20); CALCIUM 8.7 mg/dL (8.4-10.2); CARBON DIOXIDE 22 mmol/L (22-30); CHLORIDE 102 mmol/L (98-107); GLUCOSE 301 mg/dL (75-110); POTASSIUM 4.8 mmol/L (3.6-5.0); SODIUM 135.7 mmol/L (137-145); TOTAL PROTEIN 6.6 g/dL (6.3-8.2)
[2018-05-15 11:36] LABS: ABSOLUTE EOSINOPHILS # (AUTO) 0.1 10^3/uL (0.0-0.6); ABSOLUTE LYMPHOCYTES (AUTO) 1.2 10^3/uL (0.5-4.7); ABSOLUTE MONOCYTES (AUTO) 0.5 10^3/uL (0.1-1.4); ABSOLUTE NEUT (AUTO) 4.8 10^3/uL (1.7-8.2); BASOPHILS % (AUTO) 0.4 % (0-2); EOSINOPHILS % (AUTO) 0.9 % (0-6); HEMATOCRIT 17.9 % (36.0-47.0); LYMPHOCYTES % (AUTO) 18.1 % (13-45); MEAN CORPUSCULAR HEMOGLOBIN 19.2 pg (27.0-33.4); MEAN CORPUSCULAR HGB CONC 29.4 g/dL (32.0-36.0); MEAN CORPUSCULAR VOLUME 65 fl (80-97); MONOCYTES % (AUTO) 7.8 % (3-13); PLATELET COUNT 183 10^3/uL (150-450); RED BLOOD COUNT 2.74 10^6/uL (3.72-5.28); RED CELL DISTRIBUTION WIDTH 21.2 % (11.5-14.0); SEGMENTED NEUTROPHILS % (AUTO) 72.8 % (42-78); TOTAL CELLS COUNTED % (AUTO) 100 %; WHITE BLOOD COUNT 6.7 10^3/uL (4.0-10.5)
[2018-05-15 11:38] LABS: NT PRO BNP 283 pg/mL (5-900)
[2018-05-15 11:38] LABS: HEMOGLOBIN 5.3 g/dL (12.0-15.5)
[2018-05-15 11:40] LABS: TROPONIN I < 0.012 ng/mL
[2018-05-15] MEDS ORDERED: PANTOPRAZOLE SODIUM 40 MG VIAL IV ONE (11:41)
[2018-05-15] MEDS ORDERED: NORMAL SALINE 250 ML IV PRN ×2 (11:41)
--- NOTE | 2018-05-15 11:55 | ER Document Report ---
ED General - General Chief Complaint: Breathing Difficulty Stated Complaint: SHORTNESS OF BREATH Time Seen by Provider: 05/15/18 10:08 TRAVEL OUTSIDE OF THE [place] IN LAST 30 DAYS: No - HPI Patient complains to provider of: Shortness of breath and generalized weakness Notes: Patient coming in for the above-stated complaint. Patient was seen byyour triage provider whose notes provided below 68-year-old female here with complaints ongoing for several weeks of dry cough lightheadedness dyspnea on exertion generalized weakness fatigue chest pain shortness of breath as well as pale color to her skin. Her daughter states that she is stubborn and that she would not agree to come in until now. The daughter has noted that she has had a pale color to her skin. She has required one previous blood transfusion many years ago. She does take a blood thinner, Eliquis, for atrial fibrillation. Upon my evaluation patient does endorse these statements above. Patient upon my evaluation states she is currently chest pain-free denies any black bloody or tarry stools patient states normal bowel movements denies any abdominal pain. Patient denies any changes to her medications states has been compliant with her medication regimen states has follows with her credit risk associate had an echo performed on Monday does not currently know the results credit risk associate is Dr. Day states that she has not followed up with her PCP Dr. Nuno in a long time. Patient does states she has had a colonoscopy in the past however this was many years ago where they removed polyps patient does not the major with a GI physician next performed the procedure. Otherwise patient does look pale - Related Data Allergies/Adverse Reactions: codeine [Codeine] Allergy (Intermediate, Verified 05/15/18 10:17) GI upset Past Medical History - Social History Smoking Status: Never Smoker Chew tobacco use (# tins/day): No Drug Abuse: None Family History: Reviewed & Not Pertinent Patient has suicidal ideation: No Patient has homicidal ideation: No - Past Medical History Cardiac Medical History: Reports: Hx Coronary Artery Disease, Hx Hypercholesterolemia - meds x 8 years, Hx Hypertension - meds x 10 years, Hx Heart Murmur - states SBE prophylaxis required Denies: Hx Atrial Fibrillation, Hx Congestive Heart Failure, Hx Heart Attack, Hx Peripheral Vascular Disease, Hx Pulmonary Embolism Pulmonary Medical History: Reports: Hx Bronchitis - frequency has decreased, no longer exposed to 2nd smoke Denies: Hx Asthma, Hx COPD, Hx Pneumonia, Hx Respiratory Failure, Hx Sleep Apnea, Hx Tuberculosis Neurological Medical History: Denies: Hx Cerebrovascular Accident, Hx Seizures Endocrine Medical History: Reports: Hx Diabetes Mellitus Type 2. Denies: Hx Graves' Disease, Hx Hyperthyroidism, Hx Hypothyroidism Renal/ Medical History: Reports: Hx Kidney Stones - 2012, denies surgical intervention. Denies: Hx End Stage Renal Disease, Hx Ovarian Cysts, Hx Peritoneal Dialysis, Hx Pelvic Inflammatory Disease Malignancy Medical History: Reports: Hx Cervical Cancer. Denies: Hx Breast Cancer, Hx Leukemia, Hx Lung Cancer, Hx Ovarian Cancer GI Medical History: Reports: Hx Gastroesophageal Reflux Disease - meds x 4 years. Denies: Hx Crohn's Disease, Hx Hiatal Hernia, Hx Irritable Bowel, Hx Liver Failure, Hx Pancreatitis, Hx Ulcer Musculoskeletal Medical History: Reports Hx Arthritis, Denies Hx Fibromyalgia, Denies Hx Multiple Sclerosis, Denies Hx Muscular Dystrophy, Reports Hx Musculoskeletal Deformity, Reports Hx Musculoskeletal Trauma Psychiatric Medical History: Denies: Hx Bipolar Disorder, Hx Dementia, Hx Depression, Hx Post Traumatic Stress Disorder, Hx Schizophrenia Traumatic Medical History: Denies: Hx Fractures Infectious Medical History: Denies: Hx HIV Past Surgical History: Reports: Hx Cardiac Catheterization - 1 stent, Hx C holecystectomy - lap 2000, Hx Hysterectomy, Hx Orthopedic Surgery - bilateral knee replacement, shoulder replacement. Denies: Hx Appendectomy, Hx Bowel Surgery, Hx Section, Hx Colostomy, Hx Coronary Artery Bypass Graft, Hx Gastric Bypass Surgery, Hx Herniorrhaphy, Hx Mastectomy, Hx Pacemaker, Hx Tonsillectomy, Hx Tubal Ligation - Immunizations Immunizations up to date: No Hx Diphtheria, Pertussis, Tetanus Vaccination: No Hx Pneumococcal Vaccination: 05/08/09 Review of Systems - Review of Systems Constitutional: Weakness - Shortness of breath dyspnea on exertion EENT: No symptoms reported Cardiovascular: No symptoms reported Respiratory: No symptoms reported Gastrointestinal: No symptoms reported Genitourinary: No symptoms reported Female Genitourinary: No symptoms reported Musculoskeletal: No symptoms reported Skin: No symptoms reported Hematologic/Lymphatic: No symptoms reported Neurological/Psychological: No symptoms reported Physical Exam - Vital signs Vitals: Temp Pulse Resp BP Pulse Ox 98.7 F 92 24 H 149/65 H 100 05/15/18 10:02 05/15/18 10:02 05/15/18 10:02 05/15/18 10:02 05/15/18 10:02 Interpretation: Normal - General General appearance: Appears well, Alert - HEENT Head: Normocephalic, Atraumatic Eyes: Normal Pupils: PERRL - Respiratory Respiratory status: No respiratory distress Chest status: Nontender Breath sounds: Normal Chest palpation: Normal - Cardiovascular Rhythm: Regular Heart sounds: Normal auscultation Murmur: No - Abdominal Inspection: Normal Distension: No distension Bowel sounds: Normal Tenderness: Nontender Organomegaly: No organomegaly - Rectal Stool: Heme positive - Light brown stool positive Hemoccult Hemorrhoids: External - Small the 12 o'clock position - Back Back: Normal, Nontender - Extremities General upper extremity: Normal inspection, Nontender, Normal color, Normal ROM, Normal temperature General lower extremity: Normal inspection, Nontender, Normal color, Normal ROM, Normal temperature, Normal weight bearing. No: Tim's sign - Neurological Neuro grossly intact: Yes Cognition: Normal Orientation: AAOx4 [place] Coma Scale Eye Opening: Spontaneous [place] Coma Scale Verbal: Oriented [place] Coma Scale Motor: Obeys Commands Marcy Coma Scale Total: 15 Speech: Normal Motor strength normal: LUE, RUE, LLE, RLE Sensory: Normal - Psychological Associated symptoms: Normal affect, Normal mood - Skin Skin Temperature: Warm Skin Moisture: Dry Skin Color: Pale Course - Re-evaluation Re-evalutation: 05/15/18 17:13 Examination the patient reveals that she is pale otherwise no critical pathology to explain to the patient erythemic globin did return showing anemia that we would need to do a guaiac the family members at bedside and does protest stating that the patient has a history of chronic kidney disease and the chronic kidney disease runs in the family and that more likely her underlying issues are due to her chronic kidney disease. I did squeeze myself and asked the patient family members to please step aside that I needed to "perform my job" explained to the patient laboratory studies are showing significant anemia with hemoglobin of 5.3. Rectal examination reveals light brown stool that is positive on Hemoccult card explained to the patient that the Hemoccult card which showed microscopic blood in the stool that the I cannot see. More likely this may be related to underlying GI bleed exacerbated by her use of Eliquis. Explained to the patient that we will need to give her blood transfusion. Family member at bedside continuously interrupted my attempts to explain the patient's medical condition to her I did ask the family member to "be quiet"so that I can explain the patient her more likely underlying medical condition. Did discuss the patient's case with Dr. Nuno patient's PCP requested a consult with Dr. De La Vega who was also contacted Dr. Nuno is currently requesting 3 units of blood be given to the patient Lasix will be given in between each unit. Patient otherwise looks to be stable at this time for further evaluation - Vital Signs Vital signs: Temp Pulse Resp BP Pulse Ox 98.1 F 80 22 H 164/62 H 99 05/15/18 16:32 05/15/18 16:52 05/15/18 16:52 05/15/18 16:52 05/15/18 16:52 - Laboratory Result Diagrams: 05/15/18 11:20 05/15/18 10:37 Laboratory results interpreted by me: 05/15/18 05/15/18 05/15/18 10:35 10:37 10:37 RBC Hgb Hct MCV MCH MCHC RDW Sodium 135.7 L BUN 27 H Est GFR (Non-Af Amer) 53 L Glucose 301 H POC Glucose 323 H Lactic Acid 3.5 H Magnesium 1.5 L Iron TIBC Ferritin Vitamin B12 Urine Glucose (UA) Crossmatch 05/15/18 05/15/18 05/15/18 11:20 11:20 11:20 RBC 2.74 L Hgb 5.3 L Hct 17.9 L MCV 65 L MCH 19.2 L MCHC 29.4 L RDW 21.2 H Sodium BUN Est GFR (Non-Af Amer) Glucose POC Glucose Lactic Acid Magnesium Iron 15.4 L TIBC 529 H Ferritin 4.60 L Vitamin B12 190.0 L Urine Glucose (UA) Crossmatch See Detail 05/15/18 12:15 RBC Hgb Hct MCV MCH MCHC RDW Sodium BUN Est GFR (Non-Af Amer) Glucose POC Glucose Lactic Acid Magnesium Iron TIBC Ferritin Vitamin B12 Urine Glucose (UA) >=500 H Crossmatch Critical Care Note - Critical Care Note Total time excluding time spent on procedures (mins): 35 Comments: Multiple evaluation patient with abnormal lab findings significant anemia requiring multiple units of blood Discharge - Discharge Clinical Impression: Weakness, Dyspnea on exertion, Lactic acidosis, Anemia requiring blood transfusion GI bleed Qualifiers: GI bleed type/associated pathology: unspecified gastrointestinal hemorrhage type Qualified Code(s): K92.2 - Gastrointestinal hemorrhage, unspecified Anemia Qualifiers: Anemia type: unspecified type Qualified Code(s): D64.9 - Anemia, unspecified Condition: Good Disposition: ADMITTED INPATIENT Admitting Provider: [facility] Admitted: [facility]
[2018-05-15] MEDS ORDERED: FUROSEMIDE INJ/PF 20 MG/2 ML SDV IV PRN ×2 (11:59→12:00)
[2018-05-15 12:00] LABS: ABSOLUTE RETICS # 0.076 10^6/uL (0.028-0.122); RETICULOCYTE COUNT (AUTO) 2.69 % (0.66-2.85)
[2018-05-15] MEDS ORDERED: MAGNESIUM SULFATE/D5W 1 GM/100 ML RTUPB IV ONE (12:02)
[2018-05-15 12:13] LABS: IRON(TIBC) 15.4 ug/dL (37-170)
[2018-05-15 12:39] LABS: APPEARANCE,URINE CLEAR; BILIRUBIN,URINE NEGATIVE (NEGATIVE); COLOR,URINE YELLOW; GLUCOSE, URINE >=500 mg/dL (NEGATIVE); KETONES,URINE NEGATIVE (NEGATIVE); LEUKOCYTE ESTERASE,URINE NEGATIVE (NEGATIVE); NITRITE,URINE NEGATIVE (NEGATIVE); PROTEIN,URINE NEGATIVE (NEGATIVE); URINE SPECIFIC GRAVITY 1.017; UROBILINOGEN,URINE NEGATIVE mg/dL (<2.0)
--- NOTE | 2018-05-15 12:58 | EKG REPORT ---
SEVERITY:- BORDERLINE ECG - SINUS RHYTHM ATRIAL PREMATURE COMPLEX LVH BY VOLTAGE : Confirmed by: Francisco Monsalve MD 15-May-2018 12:57:50
[2018-05-15 13:20] LABS: FOLATE 9.57 ng/mL (>2.76)
[2018-05-15] MEDS ORDERED: ONDANSETRON HCL INJ/PF 4 MG/2 ML SDV IV PRN (13:56)
[2018-05-15] MEDS ORDERED: DEXTROSE 40% GEL 15 GM TUBE PO PRN ×2 (13:56)
[2018-05-15] MEDS ORDERED: DEXTROSE 50%-WATER 25 GM/50 ML DISP.SYRIN IV PRN ×2 (13:56)
[2018-05-15] MEDS ORDERED: GLUCAGON,HUMAN RECOMB 1 MG INJ SUBCUT PRN (13:56)
--- NOTE | 2018-05-15 14:10 | PDOC CONSULTATION ---
Consultation Consult Date: 05/15/18 Attending physician:: PACO HOFFMAN Consult reason:: possible GI bleed History of Present Illness Admission Date/PCP: 05/15/18 13:09 MEKA ESQUIVEL MD History of Present Illness: TICO NG is a 68 year old female I am asked to see this patient who is being admitted thru the ED patient noted to be anemic patient is on anticoagulation patient had previous colonoscopy done by another GI physician patient noted to have Hgb around 6 she is on Eliquis for A.Fib patient presented with shortness of breath she has an elevated BUN to creat ratio patient will need to have an EGD done will need to get records of previous colonoscopy that was done there may be a history of polyps removed in the past Past Medical History Cardiac Medical History: Reports: Coronary Artery Disease, Hyperlipidema - meds x 8 years, Hypertension - meds x 10 years, Heart Murmur - states SBE prophylaxis required Denies: Atrial Fibrillation, Congestive Heart Failure, Myocardial Infarction, Peripheral Vascular Disease, Pulmonary Embolism Pulmonary Medical History: Reports: Bronchitis - frequency has decreased, no longer exposed to 2nd smoke Denies: Asthma, Chronic Obstructive Pulmonary Disease (COPD), Pneumonia, Respiratory Failure, Sleep Apnea, Tuberculosis Neurological Medical History: Denies: Seizures Endocrine Medical History: Reports: Diabetes Mellitus Type 2 Denies: Hyperthyroidism, Hypothyroidism Renal/ Medical History: Denies: End Stage Renal Disease Malignancy Medical History: Reports: Cervical Cancer Denies: Breast Cancer, Leukemia, Lung Cancer, Ovarian Cancer GI Medical History: Reports: Gastroesophageal Reflux Disease - meds x 4 years Denies: Crohn's Disease, Hiatal Hernia Musculoskeltal Medical History: Reports: Arthritis Denies: Fibromyalgia Psychiatric Medical History: Denies: Bipolar Disorder, Dementia, Depression, Post Traumatic Stress Disorder Hematology: Reports: Anemia - blood transfusion pre TERESA BSO, 2002 Denies: Hemophilia, Sickle Cell Disease Infectious Medical History: Denies: HIV Past Surgical History Past Surgical History: Reports: Cardiac Catheterization - 1 stent, Cholecystectomy - lap 2000, Hysterectomy, Orthopedic Surgery - bilateral knee replacement, shoulder replacement Denies: Amputation, Appendectomy, Section, Colostomy, Coronary Artery Bypass Graft, Gastric Bypass Surgery, Herniorrhaphy, Mastectomy, Pacemaker, Tonsillectomy, Tubal Ligation Social History Smoking Status: Never Smoker Hx Recreational Drug Use: No Hx Prescription Drug Abuse: No Family History Family History: Reviewed & Not Pertinent Parental Family History Reviewed: Yes Children Family History Reviewed: Unknown Sibling(s) Family History Reviewed.: Unknown Medication/Allergy Home Medications: Apixaban [Eliquis 5 mg Tablet] 5 mg PO BID 05/15/18 Aspirin [Adult Low Dose Aspirin EC] 81 mg PO DAILY 05/15/18 Atorvastatin Calcium [Lipitor 40 mg Tablet] 40 mg PO QHS 05/15/18 Diltiazem HCl [Cardizem Cd 240 mg Capsule.cr] 240 mg PO DAILY 05/15/18 Furosemide [Lasix 20 mg Tablet] 20 mg PO DAILY 05/15/18 Losartan Potassium [Cozaar 100 mg Tablet] 100 mg PO DAILY 05/15/18 Metformin HCl [Glucophage XR 500 mg Tablet] 2,000 mg PO WSUPPER 05/15/18 Montelukast Sodium [Singulair 10 mg Tablet] 10 mg PO QPM 05/15/18 Nitroglycerin [Nitrostat 0.4 mg (1/150 Gr) Tabs 25/Bottle] 0.4 mg SL Q5MP PRN 05/15/18 Omeprazole 20 mg PO BID 05/15/18 Allergies/Adverse Reactions: codeine [Codeine] Allergy (Intermediate, Verified 05/15/18 10:17) GI upset Review of Systems Constitutional: ABSENT: fever(s), headache(s), night sweats, weakness Eyes: ABSENT: visual disturbances Ears: ABSENT: hearing changes Nose, Mouth, and Throat: ABSENT: mouth pain, sore throat Cardiovascular: ABSENT: edema, orthropnea, palpitations Respiratory: PRESENT: dyspnea. ABSENT: hemoptysis Gastrointestinal: ABSENT: diarrhea, dysphagia Genitourinary: ABSENT: dysuria, hematuria Musculoskeletal: ABSENT: deformity, joint swelling Neurological: ABSENT: syncope, tingling, tremor(s), vertigo Endocrine: ABSENT: polydipsia, polyphagia, polyuria Physical Exam Vital Signs: Temp Pulse Resp BP Pulse Ox 98.8 F 72 17 164/80 H 100 05/15/18 13:45 05/15/18 13:41 05/15/18 13:41 05/15/18 13:41 05/15/18 13:41 Intake & Output 05/14/18 05/15/18 05/16/18 06:59 06:59 06:59 Intake Total 500 Balance 500 Weight 115.5 kg General appearance: PRESENT: mild distress, well-developed, well-nourished Head exam: PRESENT: atraumatic, normocephalic Eye exam: PRESENT: EOMI, PERRLA. ABSENT: periorbital swelling, scleral icterus Mouth exam: PRESENT: moist, neck supple Throat exam: ABSENT: tonsillar exudate, tonsillogmegaly Neck exam: ABSENT: meningismus, tenderness, thyromegaly Respiratory exam: PRESENT: symmetrical, unlabored. ABSENT: tachypnea, wheezes Cardiovascular exam: PRESENT: irregular rhythm, +S1, +S2 GI/Abdominal exam: PRESENT: soft. ABSENT: rebound, rigid, tenderness Extremities exam: ABSENT: joint swelling Musculoskeletal exam: PRESENT: full ROM Neurological exam: PRESENT: oriented to time, oriented to situation, CN II-XII grossly intact Focused psych exam: ABSENT: restlessness Skin exam: PRESENT: normal color. ABSENT: mottled, pallor, urticaria, vesicles Results Laboratory Results: 05/15/18 11:20 05/15/18 10:37 05/15/18 05/15/18 05/15/18 10:37 10:37 10:37 WBC Cancelled RBC Cancelled Hgb Cancelled Hct Cancelled MCV Cancelled MCH Cancelled MCHC Cancelled RDW Cancelled Plt Count Cancelled Seg Neutrophils % Cancelled Lymphocytes % Cancelled Monocytes % Cancelled Eosinophils % Cancelled Basophils % Cancelled Absolute Neutrophils Cancelled Absolute Lymphocytes Cancelled Absolute Monocytes Cancelled Absolute Eosinophils Cancelled Absolute Basophils Cancelled Retic Count (auto) Absolute Retic Sodium 135.7 L Potassium 4.8 Chloride 102 Carbon Dioxide 22 Anion Gap 12 BUN 27 H Creatinine 1.04 Est GFR ( Amer) > 60 Est GFR (Non-Af Amer) 53 L Glucose 301 H Lactic Acid 3.5 H Calcium 8.7 Magnesium 1.5 L Iron TIBC % Saturation Ferritin Total Bilirubin 0.7 AST 29 ALT 22 Alkaline Phosphatase 71 Total Protein 6.6 Albumin 3.9 Vitamin B12 Folate Urine Color Urine Appearance Urine pH Ur Specific Ambrose Urine Protein Urine Glucose (UA) Urine Ketones Urine Blood Urine Nitrite Ur Leukocyte Esterase Urine WBC (Auto) Urine RBC (Auto) Blood Type Antibody Screen 05/15/18 05/15/18 05/15/18 11:20 11:20 11:20 WBC 6.7 RBC 2.74 L Hgb 5.3 L Hct 17.9 L MCV 65 L MCH 19.2 L MCHC 29.4 L RDW 21.2 H Plt Count 183 Seg Neutrophils % 72.8 Lymphocytes % 18.1 Monocytes % 7.8 Eosinophils % 0.9 Basophils % 0.4 Absolute Neutrophils 4.8 Absolute Lymphocytes 1.2 Absolute Monocytes 0.5 Absolute Eosinophils 0.1 Absolute Basophils 0.0 Retic Count (auto) 2.69 Absolute Retic 0.076 Sodium Potassium Chloride Carbon Dioxide Anion Gap BUN Creatinine Est GFR ( Amer) Est GFR (Non-Af Amer) Glucose Lactic Acid Calcium Magnesium Iron TIBC % Saturation Ferritin Total Bilirubin AST ALT Alkaline Phosphatase Total Protein Albumin Vitamin B12 Folate Urine Color Urine Appearance Urine pH Ur Specific [place]rose Urine Protein Urine Glucose (UA) Urine Ketones Urine Blood Urine Nitrite Ur Leukocyte Esterase Urine WBC (Auto) Urine RBC (Auto) Blood Type A POSITIVE Antibody Screen NEGATIVE 05/15/18 05/15/18 11:20 12:15 WBC RBC Hgb Hct MCV MCH MCHC RDW Plt Count Seg Neutrophils % Lymphocytes % Monocytes % Eosinophils % Basophils % Absolute Neutrophils Absolute Lymphocytes Absolute Monocytes Absolute Eosinophils Absolute Basophils Retic Count (auto) Absolute Retic Sodium Potassium Chloride Carbon Dioxide Anion Gap BUN Creatinine Est GFR ( Amer) Est GFR (Non-Af Amer) Glucose Lactic Acid Calcium Magnesium Iron 15.4 L TIBC 529 H % Saturation 3 Ferritin 4.60 L Total Bilirubin AST ALT Alkaline Phosphatase Total Protein Albumin Vitamin B12 190.0 L Folate 9.57 Urine Color YELLOW Urine Appearance CLEAR Urine pH 5.0 Ur Specific [place]rose 1.017 Urine Protein NEGATIVE Urine Glucose (UA) >=500 H Urine Ketones NEGATIVE Urine Blood NEGATIVE Urine Nitrite NEGATIVE Ur Leukocyte Esterase NEGATIVE Urine WBC (Auto) 1 Urine RBC (Auto) 0 Blood Type Antibody Screen 05/15/18 10:37 Troponin I < 0.012 NT-Pro-B Natriuret Pep 283 Impressions: Chest X-Ray 05/15/18 10:13 IMPRESSION: NO ACUTE RADIOGRAPHIC FINDING IN THE CHEST. Assessment & Plan - Diagnosis (1) GI bleed Qualifiers: GI bleed type/associated pathology: unspecified gastrointestinal hemorrhage type Qualified Code(s): K92.2 - Gastrointestinal hemorrhage, unspecified Plan: patient has anemia likely to possible GI bleeding will be getting transfusion since her BUN is elevated in comparison to her Creat, likely an upper GI source had colonoscopy with another GI physcian will get EGD done first, if negative then colonoscopy Risks, benefits and alternatives are explained to the patient in detail further recommendations to follow - Time Time Spent: 50 to 70 Minutes
[2018-05-15] MEDS ORDERED: IRON SUCROSE COMPLEX INJ/PF 100 MG/5 ML SDV IV ONE (17:33)
--- NOTE | 2018-05-15 17:39 | PDOC H&P ---
History of Present Illness Admission Date/PCP: 05/15/18 13:09 MEKA ESQUIVEL MD Patient complains of: ivan History of Present Illness: TICO NG is a 68 year old female with 2 weeks ivan presyncope. Hct18. Occult blood +. No melana or hematochezia. Past Medical History Cardiac Medical History: Reports: Atrial Fibrillation, Coronary Artery Disease - stent few years ago, Hyperlipidema - meds x 8 years, Hypertension - meds x 10 years, Heart Murmur - states SBE prophylaxis required Denies: Congestive Heart Failure, Myocardial Infarction, Peripheral Vascular Disease, Pulmonary Embolism Pulmonary Medical History: Reports: Bronchitis - frequency has decreased, no longer exposed to 2nd smoke Denies: Asthma, Chronic Obstructive Pulmonary Disease (COPD), Pneumonia, Respiratory Failure, Sleep Apnea, Tuberculosis Neurological Medical History: Denies: Seizures Endocrine Medical History: Reports: Diabetes Mellitus Type 2 Denies: Hyperthyroidism, Hypothyroidism Renal/ Medical History: Denies: End Stage Renal Disease Malignancy Medical History: Reports: Cervical Cancer Denies: Breast Cancer, Leukemia, Lung Cancer, Ovarian Cancer GI Medical History: Reports: Gastroesophageal Reflux Disease - meds x 4 years, Other - polyp removed few years ago by Dr Vu Denies: Crohn's Disease, Hiatal Hernia Musculoskeltal Medical History: Reports: Arthritis Denies: Fibromyalgia Psychiatric Medical History: Denies: Bipolar Disorder, Dementia, Depression, Post Traumatic Stress Disorder Hematology: Reports: Anemia - blood transfusion pre TERESA BSO, 2001 Denies: Hemophilia, Sickle Cell Disease Infectious Medical History: Denies: HIV Past Surgical History Past Surgical History: Reports: Cardiac Catheterization - 1 stent, Cholecystectomy - lap 2000, Hysterectomy, Orthopedic Surgery - bilateral knee replacement, shoulder replacement Denies: Amputation, Appendectomy, Section, Colostomy, Coronary Artery Bypass Graft, Gastric Bypass Surgery, Herniorrhaphy, Mastectomy, Pacemaker, Tonsillectomy, Tubal Ligation Social History Information Source: Dr. Matthews Smoking Status: Never Smoker Frequency of Alcohol Use: None Hx Recreational Drug Use: No Hx Prescription Drug Abuse: No - Advance Directive Resuscitation Status: Full Code Family History Family History: CAD, CVA, DM, Hypertension, Malignancy Parental Family History Reviewed: Yes Children Family History Reviewed: Yes Sibling(s) Family History Reviewed.: Yes Medication/Allergy Home Medications: Apixaban [Eliquis 5 mg Tablet] 5 mg PO BID 05/15/18 Aspirin [Adult Low Dose Aspirin EC] 81 mg PO QAM 05/15/18 Atorvastatin Calcium [Lipitor 40 mg Tablet] 40 mg PO QHS 05/15/18 Diltiazem HCl [Cardizem Cd 240 mg Capsule.cr] 240 mg PO QAM 05/15/18 Furosemide [Lasix 20 mg Tablet] 20 mg PO QAM 05/15/18 Losartan Potassium [Cozaar 100 mg Tablet] 100 mg PO QAM 05/15/18 Metformin HCl [Glucophage XR 500 mg Tablet] 2,000 mg PO WSUPPER 05/15/18 Montelukast Sodium [Singulair 10 mg Tablet] 10 mg PO QPM 05/15/18 Nitroglycerin [Nitrostat 0.4 mg (1/150 Gr) Tabs 25/Bottle] 0.4 mg SL Q5MP PRN 05/15/18 Omeprazole 20 mg PO BID 05/15/18 Allergies/Adverse Reactions: codeine [Codeine] Allergy (Intermediate, Verified 05/15/18 10:17) GI upset Review of Systems Constitutional: PRESENT: fatigue. ABSENT: headache(s), weight loss Nose, Mouth, and Throat: ABSENT: headache(s) Cardiovascular: PRESENT: dyspnea on exertion. ABSENT: chest pain, orthropnea Respiratory: PRESENT: cough, dyspnea. ABSENT: hemoptysis, sputum Gastrointestinal: PRESENT: constipation, vomiting - once. ABSENT: abdominal pain, coffee ground emesis, diarrhea, hematemesis, hematochezia, melena Genitourinary: ABSENT: dysuria, hematuria Integumentary: ABSENT: rash Physical Exam Vital Signs: Temp Pulse Resp BP Pulse Ox 98.8 F 69 20 159/67 H 100 05/15/18 13:45 05/15/18 15:20 05/15/18 15:20 05/15/18 15:02 05/15/18 15:20 Intake & Output 05/14/18 05/15/18 05/16/18 07:59 07:59 07:59 Intake Total 600 Balance 600 Weight 254 lb 10.142 oz General appearance: PRESENT: no acute distress, morbidly obese Eye exam: PRESENT: conjunctiva pale. ABSENT: conjunctival injection, scleral icterus Mouth exam: PRESENT: moist, neck supple, tongue midline Neck exam: ABSENT: lymphadenopathy, tenderness, thyromegaly, tracheal deviation Respiratory exam: PRESENT: clear to auscultation giuliano Cardiovascular exam: ABSENT: diastolic murmur, irregular rhythm, systolic murmur GI/Abdominal exam: ABSENT: mass, organolmegaly, tenderness Extremities exam: ABSENT: pedal edema Neurological exam: PRESENT: oriented to situation Psychiatric exam: PRESENT: appropriate affect Results Laboratory Results: 05/15/18 11:20 05/15/18 10:37 05/15/18 05/15/18 05/15/18 10:37 10:37 10:37 WBC Cancelled RBC Cancelled Hgb Cancelled Hct Cancelled MCV Cancelled MCH Cancelled MCHC Cancelled RDW Cancelled Plt Count Cancelled Seg Neutrophils % Cancelled Lymphocytes % Cancelled Monocytes % Cancelled Eosinophils % Cancelled Basophils % Cancelled Absolute Neutrophils Cancelled Absolute Lymphocytes Cancelled Absolute Monocytes Cancelled Absolute Eosinophils Cancelled Absolute Basophils Cancelled Retic Count (auto) Absolute Retic Sodium 135.7 L Potassium 4.8 Chloride 102 Carbon Dioxide 22 Anion Gap 12 BUN 27 H Creatinine 1.04 Est GFR ( Amer) > 60 Est GFR (Non-Af Amer) 53 L Glucose 301 H Lactic Acid 3.5 H Calcium 8.7 Magnesium 1.5 L Iron TIBC % Saturation Ferritin Total Bilirubin 0.7 AST 29 ALT 22 Alkaline Phosphatase 71 Total Protein 6.6 Albumin 3.9 Vitamin B12 Folate Urine Color Urine Appearance Urine pH Ur Specific [place] Urine Protein Urine Glucose (UA) Urine Ketones Urine Blood Urine Nitrite Ur Leukocyte Esterase Urine WBC (Auto) Urine RBC (Auto) Blood Type Antibody Screen 05/15/18 05/15/18 05/15/18 11:20 11:20 11:20 WBC 6.7 RBC 2.74 L Hgb 5.3 L Hct 17.9 L MCV 65 L MCH 19.2 L MCHC 29.4 L RDW 21.2 H Plt Count 183 Seg Neutrophils % 72.8 Lymphocytes % 18.1 Monocytes % 7.8 Eosinophils % 0.9 Basophils % 0.4 Absolute Neutrophils 4.8 Absolute Lymphocytes 1.2 Absolute Monocytes 0.5 Absolute Eosinophils 0.1 Absolute Basophils 0.0 Retic Count (auto) 2.69 Absolute Retic 0.076 Sodium Potassium Chloride Carbon Dioxide Anion Gap BUN Creatinine Est GFR ( Amer) Est GFR (Non-Af Amer) Glucose Lactic Acid Calcium Magnesium Iron TIBC % Saturation Ferritin Total Bilirubin AST ALT Alkaline Phosphatase Total Protein Albumin Vitamin B12 Folate Urine Color Urine Appearance Urine pH Ur Specific [place] Urine Protein Urine Glucose (UA) Urine Ketones Urine Blood Urine Nitrite Ur Leukocyte Esterase Urine WBC (Auto) Urine RBC (Auto) Blood Type A POSITIVE Antibody Screen NEGATIVE Abnormal - 24 hr 05/15/18 05/15/18 05/15/18 10:35 10:37 10:37 RBC Hgb Hct MCV MCH MCHC RDW Sodium 135.7 L BUN 27 H Est GFR (Non-Af Amer) 53 L Glucose 301 H POC Glucose 323 H Lactic Acid 3.5 H Magnesium 1.5 L Iron TIBC Ferritin Vitamin B12 Urine Glucose (UA) Crossmatch 05/15/18 05/15/18 05/15/18 11:20 11:20 11:20 RBC 2.74 L Hgb 5.3 L Hct 17.9 L MCV 65 L MCH 19.2 L MCHC 29.4 L RDW 21.2 H Sodium BUN Est GFR (Non-Af Amer) Glucose POC Glucose Lactic Acid Magnesium Iron 15.4 L TIBC 529 H Ferritin 4.60 L Vitamin B12 190.0 L Urine Glucose (UA) Crossmatch See Detail 05/15/18 12:15 RBC Hgb Hct MCV MCH MCHC RDW Sodium BUN Est GFR (Non-Af Amer) Glucose POC Glucose Lactic Acid Magnesium Iron TIBC Ferritin Vitamin B12 Urine Glucose (UA) >=500 H Crossmatch Impressions: Chest X-Ray 05/15/18 10:13 IMPRESSION: NO ACUTE RADIOGRAPHIC FINDING IN THE CHEST. Assessment & Plan - Diagnosis (1) Iron deficiency anemia secondary to blood loss (chronic) Is this a current diagnosis for this admission?: Yes Plan: endoscopy prbc venofer b12 IF antibody (2) Paroxysmal atrial fibrillation Is this a current diagnosis for this admission?: Yes Plan: stopped aspiriln eliquis (3) Mixed hyperlipidemia Is this a current diagnosis for this admission?: Yes (4) Type 2 diabetes mellitus with diabetic chronic kidney disease Qualifiers: Diabetes mellitus half-way insulin use: without half-way use Chronic kidney disease stage: stage 3 (moderate) Qualified Code(s): E11.22 - Type 2 diabetes mellitus with diabetic chronic kidney disease; N18.3 - Chronic kidney disease, stage 3 (moderate) Is this a current diagnosis for this admission?: Yes (5) Essential (primary) hypertension Is this a current diagnosis for this admission?: Yes (6) Other forms of angina pectoris Is this a current diagnosis for this admission?: Yes (7) Gastro-esophageal reflux disease without esophagitis Is this a current diagnosis for this admission?: Yes Plan: prevacid (8) Malignant neoplasm of cervix uteri Qualifiers: Malignant neoplasm of cervix location: unspecified location Qualified Cod e(s): C53.9 - Malignant neoplasm of cervix uteri, unspecified Is this a current diagnosis for this admission?: Yes - Inpatient Certification Based on my medical assessment, after consideration of the patient's comorbidities, presenting symptoms, or acuity I expect that the services needed warrant INPATIENT care.: Yes I certify that my determination is in accordance with my understanding of Medicare's requirements for reasonable and necessary INPATIENT services [42 CFR 412.3e].: Yes Medical Necessity: Significant Comorbidiites Make Outpatient Treatment Too Risky, Need Close Monitoring Due to Risk of Patient Decompensation, Need For IV Fluids, Need For Continuous Telemetry Monitoring, Need for Surgery, Risk of Complication if Not Cared For in Hospital, Risk of Diagnosis Which Will Require Inpatient Eval/Care/Monitoring
[2018-05-15] MEDS ORDERED: CYANOCOBALAMIN (VITAMIN B-12) INJ 1000 MCG/1 ML VIAL IM ONE (18:15)
[2018-05-15] MEDS ORDERED: IRON SUCROSE COMPLEX 500 MG in NORMAL SALINE 250 ML IV ONE (19:00)
[2018-05-16] MEDS ORDERED: CYANOCOBALAMIN (VITAMIN B-12) INJ 1000 MCG/1 ML VIAL IM ONE (00:30)
[2018-05-16 02:56] LABS: HEMATOCRIT 27.3 % (36.0-47.0); MEAN CORPUSCULAR HEMOGLOBIN 22.6 pg (27.0-33.4); MEAN CORPUSCULAR HGB CONC 32.3 g/dL (32.0-36.0); PLATELET COUNT 178 10^3/uL (150-450); RED CELL DISTRIBUTION WIDTH 24.3 % (11.5-14.0); WHITE BLOOD COUNT 9.1 10^3/uL (4.0-10.5)
[2018-05-16 03:22] LABS: HEMOGLOBIN 8.8 g/dL (12.0-15.5); MEAN CORPUSCULAR VOLUME 70 fl (80-97)
[2018-05-16] MEDS: LANSOPRAZOLE 30 MG TAB.RAP.DR PO SCH (05:28)
[2018-05-16 06:50] LABS: HEMATOCRIT 26.1 % (36.0-47.0); HEMOGLOBIN 8.5 g/dL (12.0-15.5); MEAN CORPUSCULAR HEMOGLOBIN 22.6 pg (27.0-33.4); MEAN CORPUSCULAR HGB CONC 32.6 g/dL (32.0-36.0); MEAN CORPUSCULAR VOLUME 69 fl (80-97); PLATELET COUNT 166 10^3/uL (150-450); RED BLOOD COUNT 3.76 10^6/uL (3.72-5.28); RED CELL DISTRIBUTION WIDTH 24.3 % (11.5-14.0); WHITE BLOOD COUNT 7.4 10^3/uL (4.0-10.5)
[2018-05-16 07:06] LABS: ANION GAP 7 (5-19); BLOOD UREA NITROGEN 22 mg/dL (7-20); CALCIUM 8.6 mg/dL (8.4-10.2); CARBON DIOXIDE 28 mmol/L (22-30); CHLORIDE 103 mmol/L (98-107); GLUCOSE 149 mg/dL (75-110); POTASSIUM 4.1 mmol/L (3.6-5.0); SODIUM 137.8 mmol/L (137-145)
[2018-05-16] MEDS ORDERED: ONDANSETRON HCL INJ/PF 4 MG/2 ML SDV ONE (08:02)
[2018-05-16] MEDS ORDERED: DIPHENHYDRAMINE HCL 50 MG/ML VIAL ONE (08:02)
[2018-05-16] MEDS ORDERED: NALOXONE HCL INJ/PF 0.4 MG/1 ML SDV ONE (08:02)
[2018-05-16] MEDS ORDERED: FENTANYL CITRATE INJ/PF 100 MCG/2 ML AMPUL ONE (08:02)
[2018-05-16] MEDS ORDERED: FLUMAZENIL INJ 0.5 MG/5 ML VIAL ONE (08:03)
[2018-05-16] MEDS ORDERED: EPINEPHRINE INJ 1 MG/10 ML DISP.SYRIN ONE (08:03)
[2018-05-16] MEDS ORDERED: GLUCAGON,HUMAN RECOMB 1 MG INJ ONE (08:03)
--- NOTE | 2018-05-16 08:16 | PDOC PROGRESS REPORT ---
Subjective Progress Note for:: 05/16/18 Subjective:: less dyspnea after 3u prbc. Rereading old office notes showed antral gastritis and no colonic polyps in 2016. 2010 R posterior lateral coronary 70%. Stent was planned for after knee surgery. 5m later stenosis down to 50%. No stent done. 2011 R av groove 60% stable. Reason For Visit: BLOOD LOSS ANEMIA Physical Exam Vital Signs: Temp Pulse Resp BP Pulse Ox 98.1 F 63 16 152/66 H 100 05/16/18 03:46 05/16/18 07:00 05/16/18 03:46 05/16/18 03:46 05/16/18 03:46 Intake & Output 05/15/18 05/16/18 05/17/18 07:59 07:59 07:59 Intake Total 1875 Balance 1875 Weight 258 lb 6.108 oz General appearance: PRESENT: no acute distress Respiratory exam: PRESENT: clear to auscultation giuliano Cardiovascular exam: ABSENT: diastolic murmur, irregular rhythm, systolic murmur GI/Abdominal exam: ABSENT: mass, organolmegaly, tenderness Extremities exam: ABSENT: pedal edema Neurological exam: PRESENT: oriented to situation Psychiatric exam: PRESENT: appropriate affect Results Laboratory Results: 05/16/18 05:54 05/16/18 05:54 Abnormal - 24 hr 05/15/18 05/15/18 05/15/18 10:35 10:37 10:37 RBC Hgb Hct MCV MCH MCHC RDW Sodium 135.7 L BUN 27 H Est GFR (Non-Af Amer) 53 L Glucose 301 H POC Glucose 323 H Lactic Acid 3.5 H Magnesium 1.5 L Iron TIBC Ferritin Vitamin B12 Urine Glucose (UA) Crossmatch 05/15/18 05/15/18 05/15/18 11:20 11:20 11:20 RBC 2.74 L Hgb 5.3 L Hct 17.9 L MCV 65 L MCH 19.2 L MCHC 29.4 L RDW 21.2 H Sodium BUN Est GFR (Non-Af Amer) Glucose POC Glucose Lactic Acid Magnesium Iron 15.4 L TIBC 529 H Ferritin 4.60 L Vitamin B12 190.0 L Urine Glucose (UA) Crossmatch See Detail 05/15/18 05/16/18 05/16/18 12:15 02:25 05:54 RBC Hgb 8.8 L D 8.5 L Hct 27.3 L 26.1 L MCV 70 L D 69 L MCH 22.6 L 22.6 L MCHC RDW 24.3 H 24.3 H Sodium BUN Est GFR (Non-Af Amer) Glucose POC Glucose Lactic Acid Magnesium Iron TIBC Ferritin Vitamin B12 Urine Glucose (UA) >=500 H Crossmatch 05/16/18 05:54 RBC Hgb Hct MCV MCH MCHC RDW Sodium BUN 22 H Est GFR (Non-Af Amer) 49 L Glucose 149 H POC Glucose Lactic Acid Magnesium Iron TIBC Ferritin Vitamin B12 Urine Glucose (UA) Crossmatch Impressions: Chest X-Ray 05/15/18 10:13 IMPRESSION: NO ACUTE RADIOGRAPHIC FINDING IN THE CHEST. Assessment & Plan - Diagnosis (1) Iron deficiency anemia secondary to blood loss (chronic) Is this a current diagnosis for this admission?: Yes Plan: endoscopy (2) Paroxysmal atrial fibrillation Is this a current diagnosis for this admission?: Yes (3) Mixed hyperlipidemia Is this a current diagnosis for this admission?: Yes (4) Type 2 diabetes mellitus with diabetic chronic kidney disease Qualifiers: Diabetes mellitus glass embosser insulin use: without glass embosser use Chronic kidney disease stage: stage 3 (moderate) Qualified Code(s): E11.22 - Type 2 diabetes mellitus with diabetic chronic kidney disease; N18.3 - Chronic kidney disease, stage 3 (moderate) Is this a current diagnosis for this admission?: Yes (5) Essential (primary) hypertension Is this a current diagnosis for this admission?: Yes (6) Other forms of angina pectoris Is this a current diagnosis for this admission?: Yes (7) Gastro-esophageal reflux disease without esophagitis Is this a current diagnosis for this admission?: Yes (8) Malignant neoplasm of cervix uteri Qualifiers: Malignant neoplasm of cervix location: unspecified location Qualified Code(s): C53.9 - Malignant neoplasm of cervix uteri, unspecified Is this a current diagnosis for this admission?: Yes
[2018-05-16] MEDS: MIDAZOLAM 2 MG/2 ML INJ ONE ×3 (09:38→09:46)
--- NOTE | 2018-05-16 09:57 | Operative Report ---
Operative Report DATE OF SURGERY: 05/16/18 Operative Report: The risks benefits and alternatives of the procedure explained to the patient in detail and informed consent is obtained.A GIF Olympus video scope was inserted into the patient's mouth and hypopharynx, the esophagus is identified intubated and insufflated, the scope was then advanced through the esophagus stomach and duodenum ,retroflexion maneuver is done, the esophagus stomach and first and second portions of the duodenum examined PREOPERATIVE DIAGNOSIS: GI bleeding POSTOPERATIVE DIAGNOSIS: Bleeding AVM that was controlled with APC ERBE device OPERATION: EGD with control of hemorrhage SURGEON: PACO HOFFMAN ANESTHESIA: Moderate Sedation - 4 mg of Versed, 50 mcg of fentanyl. Conscious sedation monitoring time 30 minutes. TISSUE REMOVED OR ALTERED: As noted above COMPLICATIONS: None. ESTIMATED BLOOD LOSS: None. INTRAOPERATIVE FINDINGS: As noted above. PROCEDURE: Patient tolerated the procedure well. No immediate postprocedure complications are noted Patient sent back to her room in good condition. Resume regular diet Resume regular activity level No biopsies obtained Question of whether we need to think about alternative forms of anticoagulation for the long-term For right now she needs to be off her Eliquis for at least a week.
[2018-05-16] MEDS ORDERED: NITROGLYCERIN 0.4 MG/TAB 25 TAB/BOTTLE SL PRN (14:24)
[2018-05-16] MEDS: INSULIN REG, HUMAN 100 UNIT/ML 3 ML VIAL (PYX) SUBCUT PRN ×2 (17:03→21:46)
[2018-05-16] MEDS: LOSARTAN POTASSIUM 50 MG TABLET PO SCH (17:03)
[2018-05-16] MEDS: MONTELUKAST SODIUM 10 MG TABLET PO SCH (17:03)
[2018-05-16] MEDS: ATORVASTATIN CALCIUM 40 MG TABLET PO SCH (21:46)
[2018-05-17] MEDS ORDERED: NORMAL SALINE 250 ML IV PRN (05:03)
[2018-05-17] MEDS: LANSOPRAZOLE 30 MG TAB.RAP.DR PO SCH (05:40)
[2018-05-17 05:45] LABS: HEMATOCRIT 24.9 % (36.0-47.0); MEAN CORPUSCULAR HEMOGLOBIN 22.5 pg (27.0-33.4); MEAN CORPUSCULAR HGB CONC 32.3 g/dL (32.0-36.0); MEAN CORPUSCULAR VOLUME 70 fl (80-97); PLATELET COUNT 159 10^3/uL (150-450); RED BLOOD COUNT 3.56 10^6/uL (3.72-5.28); RED CELL DISTRIBUTION WIDTH 25.1 % (11.5-14.0); WHITE BLOOD COUNT 7.9 10^3/uL (4.0-10.5)
[2018-05-17 06:03] LABS: ANION GAP 8 (5-19); BLOOD UREA NITROGEN 19 mg/dL (7-20); CALCIUM 8.6 mg/dL (8.4-10.2); CARBON DIOXIDE 25 mmol/L (22-30); CHLORIDE 103 mmol/L (98-107); GLUCOSE 177 mg/dL (75-110); POTASSIUM 3.9 mmol/L (3.6-5.0); SODIUM 136.2 mmol/L (137-145)
--- NOTE | 2018-05-17 07:23 | PDOC PROGRESS REPORT ---
Subjective Progress Note for:: 05/17/18 Subjective:: hopes she will not need insulin Reason For Visit: BLOOD LOSS ANEMIA Physical Exam Vital Signs: Temp Pulse Resp BP Pulse Ox 98.8 F 63 16 128/73 H 97 05/17/18 07:01 05/17/18 07:01 05/17/18 07:01 05/17/18 07:01 05/17/18 07:01 Intake & Output 05/15/18 05/16/18 05/17/18 07:59 07:59 07:59 Intake Total 1875 1430 Balance 1875 1430 Weight 258 lb 6.108 oz General appearance: PRESENT: no acute distress Respiratory exam: PRESENT: clear to auscultation giuliano Cardiovascular exam: ABSENT: diastolic murmur, irregular rhythm, systolic murmur GI/Abdominal exam: ABSENT: mass, organolmegaly, tenderness Extremities exam: PRESENT: pedal edema - 1+ Neurological exam: PRESENT: oriented to situation Psychiatric exam: PRESENT: appropriate affect Results Laboratory Results: 05/17/18 04:34 05/17/18 04:34 Abnormal - 24 hr 05/15/18 05/16/18 05/16/18 11:20 05:54 05:54 RBC Hgb 8.5 L Hct 26.1 L MCV 69 L MCH 22.6 L RDW 24.3 H Sodium BUN 22 H Est GFR (Non-Af Amer) 49 L Glucose 149 H POC Glucose Hemoglobin A1c % Crossmatch See Detail 05/16/18 05/16/18 05/16/18 08:08 12:05 16:03 RBC Hgb Hct MCV MCH RDW Sodium BUN Est GFR (Non-Af Amer) Glucose POC Glucose 185 H 207 H 214 H Hemoglobin A1c % Crossmatch 05/16/18 05/17/18 05/17/18 20:59 04:34 04:34 RBC 3.56 L Hgb 8.0 L Hct 24.9 L MCV 70 L MCH 22.5 L RDW 25.1 H Sodium 136.2 L BUN Est GFR (Non-Af Amer) 51 L Glucose 177 H POC Glucose 218 H Hemoglobin A1c % Crossmatch 05/17/18 05/17/18 04:34 05:57 RBC Hgb Hct MCV MCH RDW Sodium BUN Est GFR (Non-Af Amer) Glucose POC Glucose 177 H Hemoglobin A1c % 8.2 H Crossmatch Impressions: Chest X-Ray 05/15/18 10:13 IMPRESSION: NO ACUTE RADIOGRAPHIC FINDING IN THE CHEST. Assessment & Plan - Diagnosis (1) Iron deficiency anemia secondary to blood loss (chronic) Is this a current diagnosis for this admission?: Yes Plan: hct 18 27 26 25. 2 more units. ?Cscop. (2) Paroxysmal atrial fibrillation Is this a current diagnosis for this admission?: Yes (3) Mixed hyperlipidemia Is this a current diagnosis for this admission?: Yes (4) Type 2 diabetes mellitus with diabetic chronic kidney disease Qualifiers: Diabetes mellitus retirement insulin use: without long term care pharmacist use Chronic kidney disease stage: stage 3 (moderate) Qualified Code(s): E11.22 - Type 2 diabetes mellitus with diabetic chronic kidney disease; N18.3 - Chronic kidney disease, stage 3 (moderate) Is this a current diagnosis for this admission?: Yes Plan: A1c8.2. On furosemide. Leave off metformin. Try glimepride again before insulin. (5) Essential (primary) hypertension Is this a current diagnosis for this admission?: Yes (6) Other forms of angina pectoris Is this a current diagnosis for this admission?: Yes (7) Gastro-esophageal reflux disease without esophagitis Is this a current diagnosis for this admission?: Yes (8) Malignant neoplasm of cervix uteri Qualifiers: Malignant neoplasm of cervix location: unspecified location Qualified Code(s): C53.9 - Malignant neoplasm of cervix uteri, unspecified Is this a current diagnosis for this admission?: Yes (9) Blood bacterial culture positive Is this a current diagnosis for this admission?: Yes Plan: 1 bottle of 1 of 2 sets has gram+. Afebrile. 2 more blood cultures pending. Suspect contaminant. - Inpatient Certification Medical Necessity: Significant Comorbidiites Make Outpatient Treatment Too Risk y, Need Close Monitoring Due to Risk of Patient Decompensation, Need For IV Fluids, Need For Continuous Telemetry Monitoring, Risk of Complication if Not Cared For in Hospital, Risk of Diagnosis Which Will Require Inpatient Eval/Care/Monitoring
[2018-05-17] MEDS: DILTIAZEM HCL 240 MG CAPSULE.CR PO SCH (08:28)
[2018-05-17] MEDS: GLIMEPIRIDE 1 MG TABLET PO SCH (08:29)
[2018-05-17] MEDS: FUROSEMIDE 20 MG TABLET PO SCH (08:29)
[2018-05-17] MEDS: LOSARTAN POTASSIUM 50 MG TABLET PO SCH (08:29)
[2018-05-17] MEDS: INSULIN REG, HUMAN 100 UNIT/ML 3 ML VIAL (PYX) SUBCUT PRN ×3 (08:30→17:43)
--- NOTE | 2018-05-17 08:41 | PDOC PROGRESS REPORT ---
Subjective Progress Note for:: 05/17/18 Subjective:: patient had EGD done yesterday and soure of bleeding, AVM noted and cauterized Hgb has been stable patient had colonoscopy1-[address] Vu patient's BUN has resolved will continue to monitor but suspect will not need inpatient colonoscopy the bigger question is whether or not she will be able to resume her anticoagulation this should be considered with Cardiology on board Reason For Visit: BLOOD LOSS ANEMIA Physical Exam Vital Signs: Temp Pulse Resp BP Pulse Ox 99.2 F 88 18 107/88 H 99 05/17/18 08:18 05/17/18 08:18 05/17/18 08:18 05/17/18 08:18 05/17/18 08:18 Intake & Output 05/16/18 05/17/18 05/18/18 06:59 06:59 06:59 Intake Total 1875 1430 0 Balance 1875 1430 0 Weight 117.2 kg 117 kg General appearance: PRESENT: no acute distress, well-developed, well-nourished Head exam: PRESENT: atraumatic, normocephalic Eye exam: PRESENT: EOMI, PERRLA. ABSENT: nystagmus, periorbital swelling, scleral icterus Mouth exam: PRESENT: moist, neck supple Throat exam: ABSENT: tonsillar exudate, tonsillogmegaly Neck exam: ABSENT: meningismus, tenderness, thyromegaly Respiratory exam: PRESENT: symmetrical, unlabored. ABSENT: tachypnea, wheezes Cardiovascular exam: PRESENT: irregular rhythm GI/Abdominal exam: PRESENT: soft. ABSENT: rebound, rigid, tenderness Extremities exam: ABSENT: joint swelling Neurological exam: PRESENT: oriented to time, oriented to situation, CN II-XII grossly intact Focused psych exam: ABSENT: restlessness Skin exam: PRESENT: normal color. ABSENT: mottled, urticaria, vesicles Results Laboratory Results: 05/17/18 04:34 05/17/18 04:34 05/15/18 05/17/18 05/17/18 11:20 04:34 04:34 WBC 7.9 RBC 3.56 L Hgb 8.0 L Hct 24.9 L MCV 70 L MCH 22.5 L MCHC 32.3 RDW 25.1 H Plt Count 159 Sodium 136.2 L Potassium 3.9 Chloride 103 Carbon Dioxide 25 Anion Gap 8 BUN 19 Creatinine 1.07 Est GFR ( Amer) > 60 Est GFR (Non-Af Amer) 51 L Glucose 177 H Calcium 8.6 Blood Type A POSITIVE Antibody Screen NEGATIVE 05/15/18 10:37 Troponin I < 0.012 NT-Pro-B Natriuret Pep 283 Impressions: Chest X-Ray 05/15/18 10:13 IMPRESSION: NO ACUTE RADIOGRAPHIC FINDING IN THE CHEST. Assessment & Plan - Diagnosis (1) GI bleed Qualifiers: GI bleed type/associated pathology: unspecified gastrointestinal hemorrhage type Qualified Code(s): K92.2 - Gastrointestinal hemorrhage, unspecified Is this a current diagnosis for this admission?: Yes Plan: There was an active source of bleeding that was cauterized on her EGD yesterday her BUN has resolved, likely indicating no further bleeding and now will need hemodynamic transitioning patient had colonoscopy recently in the past will defer on colonoscopy for now consideration for anticoagulation in the short and care home should be the focus at this time consider Cardiology input - Time Time Spent with patient: 15-24 minutes
[2018-05-17 16:00] LABS: ABSOLUTE BASOPHILS # (AUTO) 0.1 10^3/uL (0.0-0.2); ABSOLUTE EOSINOPHILS # (AUTO) 0.2 10^3/uL (0.0-0.6); ABSOLUTE LYMPHOCYTES (AUTO) 1.7 10^3/uL (0.5-4.7); ABSOLUTE MONOCYTES (AUTO) 0.9 10^3/uL (0.1-1.4); ABSOLUTE NEUT (AUTO) 6.3 10^3/uL (1.7-8.2); BASOPHILS % (AUTO) 0.8 % (0-2); EOSINOPHILS % (AUTO) 1.8 % (0-6); HEMATOCRIT 32.5 % (36.0-47.0); LYMPHOCYTES % (AUTO) 18.9 % (13-45); MEAN CORPUSCULAR HEMOGLOBIN 23.6 pg (27.0-33.4); MONOCYTES % (AUTO) 9.7 % (3-13); PLATELET COUNT 162 10^3/uL (150-450); RED BLOOD COUNT 4.41 10^6/uL (3.72-5.28); RED CELL DISTRIBUTION WIDTH 24.4 % (11.5-14.0); SEGMENTED NEUTROPHILS % (AUTO) 68.8 % (42-78); TOTAL CELLS COUNTED % (AUTO) 100 %; WHITE BLOOD COUNT 9.2 10^3/uL (4.0-10.5)
[2018-05-17 16:03] LABS: HEMOGLOBIN 10.4 g/dL (12.0-15.5); MEAN CORPUSCULAR VOLUME 74 fl (80-97)
[2018-05-17 16:31] LABS: ANISOCYTOSIS 3+; HYPOCHROMASIA SLIGHT; PLATELET COMMENT ADEQUATE; POIKILOCYTOSIS 1+; TOXIC GRANULATION SLIGHT
[2018-05-17] MEDS: MONTELUKAST SODIUM 10 MG TABLET PO SCH (17:40)
[2018-05-17 18:33] LABS: INTRINSIC FACTOR ANTIBODY 1.1 AU/mL (0.0-1.1)
[2018-05-17] MEDS: ATORVASTATIN CALCIUM 40 MG TABLET PO SCH (21:39)
[2018-05-18 05:32] LABS: HEMATOCRIT 31.9 % (36.0-47.0); HEMOGLOBIN 10.4 g/dL (12.0-15.5); MEAN CORPUSCULAR HEMOGLOBIN 23.9 pg (27.0-33.4); MEAN CORPUSCULAR HGB CONC 32.7 g/dL (32.0-36.0); MEAN CORPUSCULAR VOLUME 73 fl (80-97); PLATELET COUNT 151 10^3/uL (150-450); RED BLOOD COUNT 4.37 10^6/uL (3.72-5.28); RED CELL DISTRIBUTION WIDTH 25.7 % (11.5-14.0); WHITE BLOOD COUNT 8.1 10^3/uL (4.0-10.5)
[2018-05-18] MEDS: LANSOPRAZOLE 30 MG TAB.RAP.DR PO SCH (05:46)
[2018-05-18 05:56] LABS: ANION GAP 7 (5-19); BLOOD UREA NITROGEN 21 mg/dL (7-20); CALCIUM 8.7 mg/dL (8.4-10.2); CARBON DIOXIDE 26 mmol/L (22-30); CHLORIDE 105 mmol/L (98-107); GLUCOSE 142 mg/dL (75-110); POTASSIUM 3.9 mmol/L (3.6-5.0)
--- NOTE | 2018-05-18 08:02 | PDOC PROGRESS REPORT ---
Subjective Progress Note for:: 05/18/18 Subjective:: I had spoken to Dr Sykes yesterday. can hold off on anticoagulation for up to 1 week. can then resume patient had transfused with PRBC and Hgb has responded appropriately patient's labs noted to be stable Reason For Visit: BLOOD LOSS ANEMIA Physical Exam Vital Signs: Temp Pulse Resp BP Pulse Ox 98.3 F 65 16 132/60 H 93 05/18/18 03:02 05/18/18 03:02 05/18/18 03:02 05/18/18 03:02 05/18/18 03:02 Intake & Output 05/17/18 05/18/18 05/19/18 06:59 06:59 06:59 Intake Total 1430 1428 Balance 1430 1428 Weight 117 kg 115.9 kg General appearance: PRESENT: no acute distress, well-developed, well-nourished Head exam: PRESENT: atraumatic, normocephalic Eye exam: PRESENT: EOMI, PERRLA. ABSENT: nystagmus, periorbital swelling, scleral icterus Mouth exam: PRESENT: moist, neck supple Throat exam: ABSENT: tonsillar exudate, tonsillogmegaly Neck exam: ABSENT: meningismus, tenderness, thyromegaly Respiratory exam: PRESENT: symmetrical, unlabored. ABSENT: tachypnea, wheezes Cardiovascular exam: PRESENT: +S1, +S2 Pulses: PRESENT: normal carotid pulses GI/Abdominal exam: PRESENT: soft. ABSENT: rebound, rigid Extremities exam: ABSENT: joint swelling Musculoskeletal exam: PRESENT: full ROM Neurological exam: PRESENT: oriented to time, oriented to situation, CN II-XII grossly intact Focused psych exam: ABSENT: restlessness Skin exam: PRESENT: normal color. ABSENT: mottled, pallor, urticaria, vesicles Results Laboratory Results: 05/18/18 04:45 05/18/18 04:45 05/15/18 05/17/18 05/18/18 11:20 15:40 04:45 WBC 9.2 8.1 RBC 4.41 4.37 Hgb 10.4 L D 10.4 L Hct 32.5 L 31.9 L MCV 74 L D 73 L MCH 23.6 L 23.9 L MCHC 32.0 32.7 RDW 24.4 H 25.7 H Plt Count 162 151 Seg Neutrophils % 68.8 Lymphocytes % 18.9 Monocytes % 9.7 Eosinophils % 1.8 Basophils % 0.8 Absolute Neutrophils 6.3 Absolute Lymphocytes 1.7 Absolute Monocytes 0.9 Absolute Eosinophils 0.2 Absolute Basophils 0.1 Sodium Potassium Chloride Carbon Dioxide Anion Gap BUN Creatinine Est GFR ( Amer) Est GFR (Non-Af Amer) Glucose Calcium Blood Type A POSITIVE Antibody Screen NEGATIVE 05/18/18 04:45 WBC RBC Hgb Hct MCV MCH MCHC RDW Plt Count Seg Neutrophils % Lymphocytes % Monocytes % Eosinophils % Basophils % Absolute Neutrophils Absolute Lymphocytes Absolute Monocytes Absolute Eosinophils Absolute Basophils Sodium 138.0 Potassium 3.9 Chloride 105 Carbon Dioxide 26 Anion Gap 7 BUN 21 H Creatinine 1.16 Est GFR ( Amer) 56 L Est GFR (Non-Af Amer) 46 L Glucose 142 H Calcium 8.7 Blood Type Antibody Screen 05/15/18 10:37 Troponin I < 0.012 NT-Pro-B Natriuret Pep 283 Impressions: Chest X-Ray 05/15/18 10:13 IMPRESSION: NO ACUTE RADIOGRAPHIC FINDING IN THE CHEST. Assessment & Plan - Diagnosis (1) GI bleed Qualifiers: GI bleed type/associated pathology: unspecified gastrointestinal hemorrhage type Qualified Code(s): K92.2 - Gastrointestinal hemorrhage, unspecified Is this a current diagnosis for this admission?: Yes Plan: Resolved with treatment and cauterization of gastric AVM can resume anticoagulation after 1week PPI as outpatient Hgb is stable following transfusion please call if needed
--- NOTE | 2018-05-18 08:12 | PDOC PROGRESS REPORT ---
Subjective Progress Note for:: 05/18/18 Subjective:: no complaints Reason For Visit: BLOOD LOSS ANEMIA Physical Exam Vital Signs: Temp Pulse Resp BP Pulse Ox 98.3 F 65 16 132/60 H 93 05/18/18 03:02 05/18/18 03:02 05/18/18 03:02 05/18/18 03:02 05/18/18 03:02 Intake & Output 05/17/18 05/18/18 05/19/18 07:59 07:59 07:59 Intake Total 1430 1428 Balance 1430 1428 Weight 257 lb 15.053 oz 255 lb 8.252 oz General appearance: PRESENT: no acute distress Respiratory exam: PRESENT: clear to auscultation giuliano Cardiovascular exam: ABSENT: diastolic murmur, irregular rhythm, systolic murmur GI/Abdominal exam: ABSENT: mass, organolmegaly, tenderness Extremities exam: ABSENT: pedal edema Neurological exam: PRESENT: oriented to situation Psychiatric exam: PRESENT: appropriate affect Results Laboratory Results: 05/18/18 04:45 05/18/18 04:45 Abnormal - 24 hr 05/15/18 05/17/18 05/17/18 11:20 11:19 15:40 Hgb 10.4 L D Hct 32.5 L MCV 74 L D MCH 23.6 L RDW 24.4 H BUN Est GFR ( Amer) Est GFR (Non-Af Amer) Glucose POC Glucose 262 H Crossmatch See Detail 05/17/18 05/17/18 05/18/18 15:47 21:16 04:45 Hgb 10.4 L Hct 31.9 L MCV 73 L MCH 23.9 L RDW 25.7 H BUN Est GFR ( Amer) Est GFR (Non-Af Amer) Glucose POC Glucose 150 H 160 H Crossmatch 05/18/18 05/18/18 04:45 06:13 Hgb Hct MCV MCH RDW BUN 21 H Est GFR ( Amer) 56 L Est GFR (Non-Af Amer) 46 L Glucose 142 H POC Glucose 162 H Crossmatch Impressions: Chest X-Ray 05/15/18 10:13 IMPRESSION: NO ACUTE RADIOGRAPHIC FINDING IN THE CHEST. Assessment & Plan - Diagnosis (1) Iron deficiency anemia secondary to blood loss (chronic) Is this a current diagnosis for this admission?: Yes Plan: hct 32 twice (2) Paroxysmal atrial fibrillation Is this a current diagnosis for this admission?: Yes Plan: cardiology consult pending (3) Mixed hyperlipidemia Is this a current diagnosis for this admission?: Yes (4) Type 2 diabetes mellitus with diabetic chronic kidney disease Qualifiers: Diabetes mellitus residential insulin use: without pouncer machine use Chronic kidney disease stage: stage 3 (moderate) Qualified Code(s): E11.22 - Type 2 diabetes mellitus with diabetic chronic kidney disease; N18.3 - Chronic kidney disease, stage 3 (moderate) Is this a current diagnosis for this admission?: Yes Plan: glimepiride 2mg seems to be helping (5) Essential (primary) hypertension Is this a current diagnosis for this admission?: Yes (6) Other forms of angina pectoris Is this a current diagnosis for this admission?: Yes (7) Gastro-esophageal reflux disease without esophagitis Is this a current diagnosis for this admission?: Yes (8) Malignant neoplasm of cervix uteri Qualifiers: Malignant neoplasm of cervix location: unspecified location Qualified Code(s): C53.9 - Malignant neoplasm of cervix uteri, unspecified Is this a current diagnosis for this admission?: Yes (9) Blood bacterial culture positive Is this a current diagnosis for this admission?: Yes Plan: 1of4 gram+ ?comtaminant - Inpatient Certification Medical Necessity: Significant Comorbidiites Make Outpatient Treatment Too Risky, Need Close Monitoring Due to Risk of Patient Decompensation, Risk of Complication if Not Cared For in Hospital, Risk of Diagnosis Which Will Require Inpatient Eval/Care/Monitoring
[2018-05-18] MEDS: DILTIAZEM HCL 240 MG CAPSULE.CR PO SCH (09:07)
[2018-05-18] MEDS: GLIMEPIRIDE 1 MG TABLET PO SCH (09:07)
[2018-05-18] MEDS: FUROSEMIDE 20 MG TABLET PO SCH (09:07)
[2018-05-18] MEDS: LOSARTAN POTASSIUM 50 MG TABLET PO SCH (09:07)
[2018-05-18] MEDS: MONTELUKAST SODIUM 10 MG TABLET PO SCH (17:02)
[2018-05-18] MEDS: ATORVASTATIN CALCIUM 40 MG TABLET PO SCH (22:42)
[2018-05-19] MEDS: LANSOPRAZOLE 30 MG TAB.RAP.DR PO SCH (05:56)
[2018-05-19] MEDS ORDERED: HUM INSULIN NPH/REG INSULIN HM 100 UNIT/1 ML 3 ML SUBCUT ONE (08:29)
[2018-05-19] MEDS: DILTIAZEM HCL 240 MG CAPSULE.CR PO SCH (08:36)
[2018-05-19] MEDS: FUROSEMIDE 20 MG TABLET PO SCH (08:36)
[2018-05-19] MEDS: LOSARTAN POTASSIUM 50 MG TABLET PO SCH (08:36)
[2018-05-19] MEDS: HUM INSULIN NPH/REG INSULIN HM 100 UNIT/1 ML 3 ML SUBCUT SCH ×2 (08:50→17:44)
--- NOTE | 2018-05-19 09:21 | PDOC PROGRESS REPORT ---
Subjective Progress Note for:: 05/19/18 Subjective:: ok Reason For Visit: BLOOD LOSS ANEMIA Physical Exam Vital Signs: Temp Pulse Resp BP Pulse Ox 97.9 F 59 L 20 125/64 96 05/19/18 04:19 05/19/18 07:00 05/19/18 04:19 05/19/18 04:19 05/19/18 04:19 Intake & Output 05/18/18 05/19/18 05/20/18 07:59 07:59 07:59 Intake Total 1428 2672 Balance 1428 2672 Weight 255 lb 8.252 oz 251 lb 12.286 oz General appearance: PRESENT: no acute distress Respiratory exam: PRESENT: clear to auscultation giuliano Cardiovascular exam: ABSENT: diastolic murmur, irregular rhythm, systolic murmur GI/Abdominal exam: ABSENT: tenderness Extremities exam: ABSENT: pedal edema Neurological exam: PRESENT: oriented to situation Psychiatric exam: PRESENT: appropriate affect Results Laboratory Results: 05/18/18 04:45 05/18/18 04:45 05/15/18 11:20 Blood Blood Culture - Final Staphylococcus Epidermidis Abnormal - 24 hr 05/18/18 05/18/18 05/18/18 11:37 16:39 22:56 POC Glucose 285 H 237 H 195 H 05/19/18 06:05 POC Glucose 169 H Impressions: Chest X-Ray 05/15/18 10:13 IMPRESSION: NO ACUTE RADIOGRAPHIC FINDING IN THE CHEST. Assessment & Plan - Diagnosis (1) Iron deficiency anemia secondary to blood loss (chronic) Is this a current diagnosis for this admission?: Yes (2) Paroxysmal atrial fibrillation Is this a current diagnosis for this admission?: Yes Plan: resume anticoagulant 7d after endoscopy (3) Mixed hyperlipidemia Is this a current diagnosis for this admission?: Yes (4) Type 2 diabetes mellitus with diabetic chronic kidney disease Qualifiers: Diabetes mellitus lace weaver insulin use: without lace weaver use Chronic kidney disease stage: stage 3 (moderate) Qualified Code(s): E11.22 - Type 2 diabetes mellitus with diabetic chronic kidney disease; N18.3 - Chronic kidney disease, stage 3 (moderate) Is this a current diagnosis for this admission?: Yes Plan: switch glimepiride to 70/30humulin (5) Essential (primary) hypertension Is this a current diagnosis for this admission?: Yes (6) Other forms of angina pectoris Is this a current diagnosis for this admission?: Yes (7) Gastro-esophageal reflux disease without esophagitis Is this a current diagnosis for this admission?: Yes (8) Malignant neoplasm of cervix uteri Qualifiers: Malignant neoplasm of cervix location: unspecified location Qualified Code(s): C53.9 - Malignant neoplasm of cervix uteri, unspecified Is this a current diagnosis for this admission?: Yes (9) Blood bacterial culture positive Is this a current diagnosis for this admission?: Yes Plan: staph epi 1of4 cultures is contaminant - Inpatient Certification Medical Necessity: Significant Comorbidiites Make Outpatient Treatment Too Risky, Need Close Monitoring Due to Risk of Patient Decompensation, Risk of Complication if Not Cared For in Hospital, Risk of Diagnosis Which Will Require Inpatient Eval/Care/Monitoring
[2018-05-19] MEDS: MONTELUKAST SODIUM 10 MG TABLET PO SCH (17:45)
[2018-05-19] MEDS: ATORVASTATIN CALCIUM 40 MG TABLET PO SCH (21:42)
[2018-05-20] MEDS: LANSOPRAZOLE 30 MG TAB.RAP.DR PO SCH (05:16)
[2018-05-20 06:54] VITALS: BP 139/85
--- NOTE | 2018-05-20 07:57 | PDOC DISCHARGE SUMMARY ---
General - Admit/Disc Date/PCP Admission Date/Primary Care Provider: 05/15/18 13:09 MEKA ESQUIVEL MD Discharge Date: 05/20/18 - Discharge Diagnosis (1) Iron deficiency anemia secondary to blood loss (chronic) Is this a current diagnosis for this admission?: Yes (2) Paroxysmal atrial fibrillation Is this a current diagnosis for this admission?: Yes (3) Mixed hyperlipidemia Is this a current diagnosis for this admission?: Yes (4) Type 2 diabetes mellitus with diabetic chronic kidney disease Is this a current diagnosis for this admission?: Yes (5) Essential (primary) hypertension Is this a current diagnosis for this admission?: Yes (6) Other forms of angina pectoris Is this a current diagnosis for this admission?: Yes (7) Gastro-esophageal reflux disease without esophagitis Is this a current diagnosis for this admission?: Yes (8) Malignant neoplasm of cervix uteri Is this a current diagnosis for this admission?: Yes (9) Blood bacterial culture positive Is this a current diagnosis for this admission?: Yes - Additional Information Resuscitation Status: Full Code Discharge Diet: Cardiac, Diabetic Discharge Activity: Activity As Tolerated Prescriptions: Cyanocobalamin (Vitamin B-12) [Vitamin B-12 1000 mcg Tablet] 1,000 mcg PO DAILY #90 tablet Diltiazem HCl [Cardizem Cd 180 mg Capsule] 180 mg PO DAILY #90 capsule.cr Ferrous Sulfate [Feosol 325 mg Tablet] 325 mg PO DAILY #90 tablet Hum Insulin NPH/Reg Insulin Hm [Insulin 70-30 (NPH/Reg) 100 unit/mL] 30 unit SUBCUT BID #20 ml Home Medications: Atorvastatin Calcium [Lipitor 40 mg Tablet] 40 mg PO QHS 05/15/18 Furosemide [Lasix 20 mg Tablet] 20 mg PO QAM 05/15/18 Montelukast Sodium [Singulair 10 mg Tablet] 10 mg PO QPM 05/15/18 Nitroglycerin [Nitrostat 0.4 mg (1/150 Gr) Tabs 25/Bottle] 0.4 mg SL Q5MP PRN 05/15/18 Omeprazole 20 mg PO BID 05/15/18 Apixaban [Eliquis 5 mg Tablet] 5 mg PO BID #0 05/20/18 Cyanocobalamin (Vitamin B-12) [Vitamin B-12 1000 mcg Tablet] 1,000 mcg PO DAILY #90 tablet 05/20/18 Diltiazem HCl [Cardizem Cd 180 mg Capsule] 180 mg PO DAILY #90 capsule.cr 05/20/18 Ferrous Sulfate [Feosol 325 mg Tablet] 325 mg PO DAILY #90 tablet 05/20/18 Hum Insulin NPH/Reg Insulin Hm [Insulin 70-30 (NPH/Reg) 100 unit/mL] 30 unit SUBCUT BID #20 ml 05/20/18 Losartan Potassium [Cozaar 100 mg Tablet] 100 mg PO QAM #90 05/20/18 History of Present Illness Patient complains of: dyspnea History of Present Illness: TICO NG is a 68 year old female with 2 weeks ivan presyncope. Hct18. Occult blood +. No melana or hematochezia. Hospital Course Hospital Course: She had 3u prbc. Ferritin was 5. Dr Long cauterized bleeding gastric avm. Hematocrict stabilized at 32. Eliquis was held and will resume post op day 8. B12 was low but IF antiobody was absent. Venofer 500mg was given. Iron was started. Metformin was switched to insulin for A1c8.2. Diltiazem was decreased to 180mg for bradycardia. Physical Exam Vital Signs: Temp Pulse Resp BP Pulse Ox 98.3 F 51 L 16 139/85 H 98 05/20/18 06:51 05/20/18 06:51 05/20/18 06:51 05/20/18 06:51 05/20/18 06:51 Intake & Output 05/18/18 05/19/18 05/20/18 07:59 07:59 07:59 Intake Total 1428 2672 480 Balance 1428 2672 480 Weight 255 lb 8.252 oz 251 lb 12.286 oz 252 lb 10.396 oz General appearance: PRESENT: no acute distress Respiratory exam: PRESENT: clear to auscultation giuliano Cardiovascular exam: ABSENT: diastolic murmur, irregular rhythm, systolic murmur GI/Abdominal exam: ABSENT: hypoactive bowel sounds, organolmegaly Extremities exam: ABSENT: pedal edema Neurological exam: PRESENT: oriented to situation Psychiatric exam: PRESENT: appropriate affect Results Laboratory Results: 05/18/18 04:45 05/18/18 04:45 Labs- Last Values WBC 8.1 10^3/uL (4.0-10.5) 05/18/18 04:45 RBC 4.37 10^6/uL (3.72-5.28) 05/18/18 04:45 Hgb 10.4 g/dL (12.0-15.5) L 05/18/18 04:45 Hct 31.9 % (36.0-47.0) L 05/18/18 04:45 MCV 73 fl (80-97) L 05/18/18 04:45 MCH 23.9 pg (27.0-33.4) L 05/18/18 04:45 MCHC 32.7 g/dL (32.0-36.0) 05/18/18 04:45 RDW 25.7 % (11.5-14.0) H 05/18/18 04:45 Plt Count 151 10^3/uL (150-450) 05/18/18 04:45 Seg Neutrophils % 68.8 % (42-78) 05/17/18 15:40 Lymphocytes % 18.9 % (13-45) 05/17/18 15:40 Monocytes % 9.7 % (3-13) 05/17/18 15:40 Eosinophils % 1.8 % (0-6) 05/17/18 15:40 Basophils % 0.8 % (0-2) 05/17/18 15:40 Absolute Neutrophils 6.3 10^3/uL (1.7-8.2) 05/17/18 15:40 Absolute Lymphocytes 1.7 10^3/uL (0.5-4.7) 05/17/18 15:40 Absolute Monocytes 0.9 10^3/uL (0.1-1.4) 05/17/18 15:40 Absolute Eosinophils 0.2 10^3/uL (0.0-0.6) 05/17/18 15:40 Absolute Basophils 0.1 10^3/uL (0.0-0.2) 05/17/18 15:40 Toxic Granulation SLIGHT 05/17/18 15:40 Platelet Estimate Cancelled 05/15/18 10:37 Platelet Comment ADEQUATE 05/17/18 15:40 Hypochromasia SLIGHT 05/17/18 15:40 Poikilocytosis 1+ 05/17/18 15:40 Anisocytosis 3+ 05/17/18 15:40 Microcytosis 1+ 05/17/18 15:40 Retic Count (auto) 2.69 % (0.66-2.85) 05/15/18 11:20 Absolute Retic 0.076 10^6/uL (0.028-0.122) 05/15/18 11:20 PT 14.6 SEC (11.4-15.4) 05/15/18 10:37 INR 1.09 05/15/18 10:37 APTT 27.5 SEC (23.5-35.8) 05/15/18 10:37 Sodium 138.0 mmol/L (137-145) 05/18/18 04:45 Potassium 3.9 mmol/L (3.6-5.0) 05/18/18 04:45 Chloride 105 mmol/L (98-107) 05/18/18 04:45 Carbon Dioxide 26 mmol/L (22-30) 05/18/18 04:45 Anion Gap 7 (5-19) 05/18/18 04:45 BUN 21 mg/dL (7-20) H 05/18/18 04:45 Creatinine 1.16 mg/dL (0.52-1.25) 05/18/18 04:45 Est GFR ( Amer) 56 (>60) L 05/18/18 04:45 Est GFR (Non-Af Amer) 46 (>60) L 05/18/18 04:45 Glucose 142 mg/dL (75-110) H 05/18/18 04:45 POC Glucose 150 mg/dL (70-110) H 05/20/18 06:00 Hemoglobin A1c % 8.2 % (4.7-6.0) H 05/17/18 04:34 Lactic Acid 3.5 mmol/L (0.7-2.1) H 05/15/18 10:37 Calcium 8.7 mg/dL (8.4-10.2) 05/18/18 04:45 Magnesium 1.5 mg/dL (1.6-2.3) L 05/15/18 10:37 Iron 15.4 ug/dL (37-170) L 05/15/18 11:20 TIBC 529 ug/dL (250-450) H 05/15/18 11:20 % Saturation 3 % 05/15/18 11:20 Ferritin 4.60 ng/mL (11.1-264.0) L 05/15/18 11:20 Total Bilirubin 0.7 mg/dL (0.2-1.3) 05/15/18 10:37 Direct Bilirubin 0.3 mg/dL (0.0-0.4) 05/15/18 10:37 Neonat Total Bilirubin Not Reportable 05/15/18 10:37 Neonat Direct Bilirubin Not Reportable 05/15/18 10:37 Neonat Indirect Bili Not Reportable 05/15/18 10:37 AST 29 U/L (14-36) 05/15/18 10:37 ALT 22 U/L (9-52) 05/15/18 10:37 Alkaline Phosphatase 71 U/L (38-126) 05/15/18 10:37 Troponin I < 0.012 ng/mL 05/15/18 10:37 NT-Pro-B Natriuret Pep 283 pg/mL (5-900) 05/15/18 10:37 Total Protein 6.6 g/dL (6.3-8.2) 05/15/18 10:37 Albumin 3.9 g/dL (3.5-5.0) 05/15/18 10:37 Vitamin B12 190.0 pg/mL (239-931) L 05/15/18 11:20 Folate 9.57 ng/mL (>2.76) 05/15/18 11:20 Urine Color YELLOW 05/15/18 12:15 Urine Appearance CLEAR 05/15/18 12:15 Urine pH 5.0 (5.0-9.0) 05/15/18 12:15 Ur Specific [place] 1.017 05/15/18 12:15 Urine Protein NEGATIVE mg/dL (NEGATIVE) 05/15/18 12:15 Urine Glucose (UA) >=500 mg/dL (NEGATIVE) H 05/15/18 12:15 Urine Ketones NEGATIVE mg/dL (NEGATIVE) 05/15/18 12:15 Urine Blood NEGATIVE (NEGATIVE) 05/15/18 12:15 Urine Nitrite NEGATIVE (NEGATIVE) 05/15/18 12:15 Urine Bilirubin NEGATIVE (NEGATIVE) 05/15/18 12:15 Urine Urobilinogen NEGATIVE mg/dL (<2.0) 05/15/18 12:15 Ur Leukocyte Esterase NEGATIVE (NEGATIVE) 05/15/18 12:15 Urine WBC (Auto) 1 /HPF 05/15/18 12:15 Urine RBC (Auto) 0 /HPF 05/15/18 12:15 Urine Bacteria (Auto) TRACE /HPF 05/15/18 12:15 Squamous Epi Cells Auto 1 /HPF 05/15/18 12:15 Urine Mucus (Auto) RARE /LPF 05/15/18 12:15 Urine Ascorbic Acid NEGATIVE (NEGATIVE) 05/15/18 12:15 Intrinsic Factor Ab 1.1 AU/mL (0.0-1.1) 05/15/18 11:20 Slides for Path Review Cancelled 05/15/18 10:37 Blood Type A POSITIVE 05/15/18 11:20 Blood Type Confirm A POSITIVE 05/17/18 06:00 Antibody Screen NEGATIVE 05/15/18 11:20 Crossmatch See Detail 05/15/18 11:20 Impressions: Chest X-Ray 05/15/18 10:13 IMPRESSION: NO ACUTE RADIOGRAPHIC FINDING IN THE CHEST. Qualifiers - * PATIENT BEING DISCHARGED WITH ANY OF THE FOLLOWING DIAGNOSIS: No Plan Discharge Plan: home. OV 4d for cbc.
[2018-05-20] MEDS ORDERED: HUM INSULIN NPH/REG INSULIN HM 100 UNIT/1 ML 3 ML SUBCUT SCH (08:00)
[2018-05-20] MEDS: FUROSEMIDE 20 MG TABLET PO SCH (09:10)
[2018-05-20] MEDS: LOSARTAN POTASSIUM 50 MG TABLET PO SCH (09:10)
[2018-05-20] MEDS ORDERED: CYANOCOBALAMIN (VITAMIN B-12) 1,000 MCG TABLET PO SCH (10:00)
[2018-05-20] MEDS ORDERED: FERROUS SULFATE 325 MG TABLET PO SCH (10:00)
[2018-05-20] MEDS ORDERED: DILTIAZEM HCL 180 MG CAPSULE.CR PO SCH (10:00)
--- NOTE | 2018-05-24 14:51 | DISCHARGE SUMMARY E ---
Discharge Summary NAME: TICO NG : 1950 AGE: 68Y ADMITTED: 05/15/2018 DISCHARGED: 05/20/2018 ADDENDUM: She had morbid obesity with BMI 45.7. She had acute on chronic iron-deficiency anemia due to bleeding AVM. DICTATING PHYSICIAN: MEKA ESQUIVEL M.D. [id number] PHY#: [id number] ID: [id number] JOB#: [id number] ACCT: [id number] cc:MEKA ESQUIVEL M.D. >
== END 2018-05-20 10:52 | disposition home or self-care (01) | DRG 379 ==
LOC: ER 09:53 → EH 13:09 → 3W 18:39
PROVIDERS: ADMIT Family Medicine; ATTEND Family Medicine
PROC: 0W3P8ZZ Control Bleeding in Gastrointestinal Tract, Via Natural or Artificial Opening Endoscopic (ICD-10-PCS; principal; 2018-05-16 09:30)
PROC: 30233N1 Transfusion of Nonautologous Red Blood Cells into Peripheral Vein, Percutaneous Approach (ICD-10-PCS; 2018-05-17)
DX: K31.811 Angiodysplasia of stomach and duodenum with bleeding (principal); D50.0 Iron deficiency anemia secondary to blood loss (chronic); I48.0 Paroxysmal atrial fibrillation; C53.9 Malignant neoplasm of cervix uteri, unspecified; I25.118 Atherosclerotic heart disease of native coronary artery with other forms of angina pectoris; E78.2 Mixed hyperlipidemia; I12.9 Hypertensive chronic kidney disease with stage 1 through stage 4 chronic kidney disease, or unspecified chronic kidney disease; E11.22 Type 2 diabetes mellitus with diabetic chronic kidney disease; N18.3 Chronic kidney disease, stage 3 (moderate); K21.9 Gastro-esophageal reflux disease without esophagitis; Z79.02 Long term (current) use of antithrombotics/antiplatelets; Z79.4 Long term (current) use of insulin; Z79.899 Other long term (current) drug therapy; M19.90 Unspecified osteoarthritis, unspecified site; Z90.49 Acquired absence of other specified parts of digestive tract; Z96.653 Presence of artificial knee joint, bilateral; Z90.710 Acquired absence of both cervix and uterus; Z96.619 Presence of unspecified artificial shoulder joint; Z88.8 Allergy status to other drugs, medicaments and biological substances
CPT/HCPCS: 36415; 36430; 43255; 71046; 80048; 80053; 81001; 82607; 82728; 82746; 82962; 83036; 83540; 83550; 83605; 83735; 83880; 84484; 85025; 85027; 85045; 85610; 85730; 86340; 86850; 86900; 86901; 86920; 87040; 87077; 87186; 90686; 93005; 93010; 96361; 96374; 99291; J0171; J1200; J1610; J1756; J1815; J1940; J2250; J2310; J2405; J3010; J3420; J3475; J3490; J7040; J7050; P9016; S0164

== ENCOUNTER 2018-07-16 12:05 | Emergency (ER) | payer MEDICARE, MEDICAID ==
[2018-07-16] MEDS ORDERED: DIAZEPAM INJ 10 MG/2 ML DISP.SYRIN IM ONE (12:20)
[2018-07-16] MEDS ORDERED: ACETAMINOPHEN SOLN 325 MG/10.15 ML UDCUP PO ONE (12:20)
[2018-07-16] MEDS ORDERED: LIDOCAINE 5% (700 MG) TRANSDERMAL ADH..PATCH TP ONE (12:20)
--- NOTE | 2018-07-16 13:32 | RADIOLOGY REPORT (SQ) ---
EXAM DESCRIPTION: CT HEAD WITHOUT COMPLETED DATE/TIME: 07/16/2018 1:24 pm REASON FOR STUDY: headache COMPARISON: None. TECHNIQUE: Axial images acquired through the brain without intravenous contrast. Images reviewed wi th bone, brain and subdural windows. Additional sagittal and coronal reconstructions were generated. Images stored on PACS. All CT scanners at this facility use dose modulation, iterative reconstruction, and/or weight based d osing when appropriate to reduce radiation dose to as low as reasonably achievable (ALARA). [facility]: Dose Right [facility]: CareDose [facility]: Dose Right [facility]: Teradose 4D [facility]: [employer] RADIATION DOSE: CT Rad equipment meets quality standard of care and radiation dose reduction techniq ues were employed. CTDIvol: 53.2 mGy. DLP: 991 mGy-cm. mGy. LIMITATIONS: None. FINDINGS: VENTRICLES: Normal size and contour. CEREBRUM: No masses. No hemorrhage. No midline shift. No evidence for acute infarction. Normal gra y/white matter differentiation. No areas of low density in the white matter. CEREBELLUM: No masses. No hemorrhage. No alteration of density. No evidence for acute infarction. EXTRAAXIAL SPACES: No fluid collections. No masses. ORBITS AND GLOBE: No intra- or extraconal masses. Normal contour of globe without masses. CALVARIUM: No fracture. PARANASAL SINUSES: No fluid or mucosal thickening. SOFT TISSUES: No mass or hematoma. OTHER: No other significant finding. IMPRESSION: NORMAL BRAIN CT WITHOUT CONTRAST. EVIDENCE OF ACUTE STROKE: NO. COMMENT: Quality ID # [id number]: Final reports with documentation of one or more dose reduction techniques (e.g., Automated exposure control, adjustment of the mA and/or kV according to patient size, use of iterative reconstruction technique) TECHNICAL DOCUMENTATION: JOB ID: [id number] [employer]- All Rights Reserved Reading location - IP/workstation name: [facility]
[2018-07-16] MEDS ORDERED: KETOROLAC TROMETHAMINE 60 MG/2 ML SDV IM ONE (14:18)
--- NOTE | 2018-07-16 14:18 | ER Document Report ---
ED General - General Chief Complaint: Headache Stated Complaint: HEAD PAIN Time Seen by Provider: 07/16/18 12:14 Primary Care Provider: MEKA ESQUIVEL MD [Primary Care Provider] - Follow up as needed TRAVEL OUTSIDE OF THE [place] IN LAST 30 DAYS: No - HPI Patient complains to provider of: Headache Notes: Patient coming in for evaluation of headache. Patient is left-sided headache that occurred earlier this morning when she woke up. Patient states that just above her neck. Patient denies any trauma. Patient has difficulty turning her head to the left. Patient denies any psych medications. Otherwise resting comfortably upon my evaluation patient is on Eliquis. - Related Data Allergies/Adverse Reactions: codeine [Codeine] Allergy (Intermediate, Verified 05/15/18 10:17) GI upset Past Medical History - Social History Smoking Status: Never Smoker Chew tobacco use (# tins/day): No Frequency of alcohol use: None Drug Abuse: None Family History: CAD, CVA, DM, Hypertension, Malignancy Patient has suicidal ideation: No Patient has homicidal ideation: No - Past Medical History Cardiac Medical History: Reports: Hx Atrial Fibrillation, Hx Coronary Artery Disease - stent few years ago, Hx Hypercholesterolemia, Hx Hypertension, Hx Heart Murmur - states SBE prophylaxis required Denies: Hx Congestive Heart Failure, Hx Heart Attack, Hx Peripheral Vascular Disease, Hx Pulmonary Embolism Pulmonary Medical History: Reports: Hx Bronchitis - frequency has decreased, no longer exposed to 2nd smoke Denies: Hx Asthma, Hx COPD, Hx Pneumonia, Hx Respiratory Failure, Hx Sleep Apnea, Hx Tuberculosis Neurological Medical History: Denies: Hx Cerebrovascular Accident, Hx Seizures Endocrine Medical History: Reports: Hx Diabetes Mellitus Type 2. Denies: Hx Graves' Disease, Hx Hyperthyroidism, Hx Hypothyroidism Renal/ Medical History: Reports: Hx Kidney Stones - 2011, denies surgical intervention. Denies: Hx End Stage Renal Disease, Hx Ovarian Cysts, Hx Peritoneal Dialysis, Hx Pelvic Inflammatory Disease Malignancy Medical History: Reports: Hx Cervical Cancer. Denies: Hx Breast Cancer, Hx Leukemia, Hx Lung Cancer, Hx Ovarian Cancer GI Medical History: Reports: Hx Gastroesophageal Reflux Disease - meds x 4 years. Denies: Hx Crohn's Disease, Hx Hiatal Hernia, Hx Irritable Bowel, Hx Liver Failure, Hx Pancreatitis, Hx Ulcer Musculoskeletal Medical History: Reports Hx Arthritis, Denies Hx Fibromyalgia, Denies Hx Multiple Sclerosis, Denies Hx Muscular Dystrophy, Reports Hx Musculoskeletal Deformity, Reports Hx Musculoskeletal Trauma Psychiatric Medical History: Denies: Hx Bipolar Disorder, Hx Dementia, Hx Depression, Hx Post Traumatic Stress Disorder, Hx Schizophrenia Traumatic Medical History: Denies: Hx Fractures Infectious Medical History: Denies: Hx HIV Past Surgical History: Reports: Hx Cardiac Catheterization - 1 stent, Hx Cardiac Surgery - stents, Hx Cholecystectomy, Hx Hysterectomy, Hx Orthopedic Surgery - bilateral knee replacement, shoulder replacement. Denies: Hx Appendectomy, Hx Bowel Surgery, Hx Section, Hx Colostomy, Hx Coronary Artery Bypass Graft, Hx Gastric Bypass Surgery, Hx Herniorrhaphy, Hx Mastectomy, Hx Pacemaker, Hx Tonsillectomy, Hx Tubal Ligation - Immunizations Immunizations up to date: No Hx Diphtheria, Pertussis, Tetanus Vaccination: No Hx Pneumococcal Vaccination: 05/08/09 Review of Systems - Review of Systems Constitutional: No symptoms reported EENT: No symptoms reported Cardiovascular: No symptoms reported Respiratory: No symptoms reported Gastrointestinal: No symptoms reported Genitourinary: No symptoms reported Female Genitourinary: No symptoms reported Musculoskeletal: No symptoms reported Skin: No symptoms reported Hematologic/Lymphatic: No symptoms reported Neurological/Psychological: Headaches -: Yes All other systems reviewed and negative Physical Exam - Vital signs Vitals: Resp 10 L 07/16/18 12:09 Interpretation: Normal - General General appearance: Appears well, Alert - HEENT Head: Normocephalic, Atraumatic Eyes: Normal Pupils: PERRL Notes: tenderness palpation of the the paraspinal muscles on the left side no midline tenderness patient tenderness the base of skull adjacent to in an - Respiratory Respiratory status: No respiratory distress Chest status: Nontender Breath sounds: Normal Chest palpation: Normal - Cardiovascular Rhythm: Regular Heart sounds: Normal auscultation Murmur: No - Abdominal Inspection: Normal Distension: No distension Bowel sounds: Normal Tenderness: Nontender Organomegaly: No organomegaly - Back Back: Normal, Nontender - Extremities General upper extremity: Normal inspection, Nontender, Normal color, Normal ROM, Normal temperature General lower extremity: Normal inspection, Nontender, Normal color, Normal ROM, Normal temperature, Normal weight bearing. No: Tim's sign - Neurological Neuro grossly intact: Yes Cognition: Normal Orientation: AAOx4 [place] Coma Scale Eye Opening: Spontaneous [place] Coma Scale Verbal: Oriented [place] Coma Scale Motor: Obeys Commands [place] Coma Scale Total: 15 Speech: Normal Motor strength normal: LUE, RUE, LLE, RLE Sensory: Normal - Psychological Associated symptoms: Normal affect, Normal mood - Skin Skin Temperature: Warm Skin Moisture: Dry Skin Color: Normal Course - Re-evaluation Re-evalutation: 07/16/18 18:00 The patient presents with headache without signs of WATCH COMMANDER bleed, stroke, infection, or other serious etiology. The patient is neurologically intact. Given the extremely low risk of these diagnoses further testing and evaluation for these possibilities does not appear to be indicated at this time. The patient has been instructed to return if the symptoms worsen or change in any way.. - Vital Signs Vital signs: Temp Pulse Resp BP Pulse Ox 98 F 26 H 139/71 H 92 07/16/18 12:16 07/16/18 15:01 07/16/18 15:01 07/16/18 15:01 Discharge - Discharge Clinical Impression: Tension headache Condition: Good Disposition: HOME, SELF-CARE Instructions: Headache ([facility]), Tension Headache ([facility]) Additional Instructions: CT of your head today does not show any acute traumatic findings no bleeding no fracture. Your physical examination is consistent with a tension headache more likely due to muscle spasm. Please take Tylenol and Motrin Valium for your headache. Prescriptions: Diazepam [Valium 5 mg Tablet] 5 mg PO QIDP PRN #15 tablet PRN Reason: Referrals: MEKA ESQUIVEL MD [Primary Care Provider] - Follow up as needed
[2018-07-16 15:15] VITALS: BP 139/71
== END 2018-07-16 15:19 | disposition home or self-care (01) ==
LOC: ER 12:05
DX: Z85.41 Personal history of malignant neoplasm of cervix uteri (principal); G44.209 Tension-type headache, unspecified, not intractable; I25.10 Atherosclerotic heart disease of native coronary artery without angina pectoris; I10 Essential (primary) hypertension; E11.9 Type 2 diabetes mellitus without complications; Z95.5 Presence of coronary angioplasty implant and graft; Z88.5 Allergy status to narcotic agent
CPT/HCPCS: 99284; 96372; 70450; J3360; J1885; J3490

== ENCOUNTER → 2019-01-15 | Outpatient (CLI) | payer MEDICARE, MEDICAID ==
[2019-01-15 08:39] LABS: HEMATOCRIT 32.1 % (36.0-47.0); HEMOGLOBIN 10.4 g/dL (12.0-15.5); MEAN CORPUSCULAR HEMOGLOBIN 28.7 pg (27.0-33.4); MEAN CORPUSCULAR HGB CONC 32.5 g/dL (32.0-36.0); MEAN CORPUSCULAR VOLUME 88 fl (80-97); PLATELET COUNT 170 10^3/uL (150-450); RED BLOOD COUNT 3.64 10^6/uL (3.72-5.28); RED CELL DISTRIBUTION WIDTH 16.7 % (11.5-14.0); WHITE BLOOD COUNT 7.7 10^3/uL (4.0-10.5)
[2019-01-15 09:26] LABS: ANION GAP 10 (5-19); BLOOD UREA NITROGEN 27 mg/dL (7-20); CALCIUM 9.2 mg/dL (8.4-10.2); CARBON DIOXIDE 26 mmol/L (22-30); CHLORIDE 102 mmol/L (98-107); GLUCOSE 114 mg/dL (75-110); POTASSIUM 4.4 mmol/L (3.6-5.0)
[2019-01-16 08:21] LABS: APPEARANCE,URINE CLEAR; BILIRUBIN,URINE NEGATIVE (NEGATIVE); COLOR,URINE STRAW; GLUCOSE, URINE NEGATIVE (NEGATIVE); KETONES,URINE NEGATIVE (NEGATIVE); LEUKOCYTE ESTERASE,URINE NEGATIVE (NEGATIVE); NITRITE,URINE NEGATIVE (NEGATIVE); PROTEIN,URINE NEGATIVE (NEGATIVE); URINE SPECIFIC GRAVITY 1.009; UROBILINOGEN,URINE NEGATIVE mg/dL (<2.0)
== END ==
LOC: OD 07:45
PROVIDERS: ATTEND Internal Medicine Nephrology
DX: I12.9 Hypertensive chronic kidney disease with stage 1 through stage 4 chronic kidney disease, or unspecified chronic kidney disease (principal); N18.4 Chronic kidney disease, stage 4 (severe); E11.22 Type 2 diabetes mellitus with diabetic chronic kidney disease
CPT/HCPCS: 36415; 80048; 81001; 85027

== ENCOUNTER 2019-05-06 10:11 | Inpatient (IN) | payer MEDICARE, MEDICAID ==
--- NOTE | 2019-05-06 11:14 | ER Document Report ---
ED Medical Screen (RME) - General Chief Complaint: Dizziness Stated Complaint: DIZZINESS Time Seen by Provider: 05/06/19 11:09 Primary Care Provider: Jessica DE ANDA MD [Primary Care Provider] - Follow up as needed Mode of Arrival: Ambulatory Information source: Patient Notes: 69-year-old female with history of anemia due to GI bleed presents to the emergency department with complaints of chest pain and dizziness. Reports she had blood drawn last week by Dr. Mckinnon. Her H&H was low. She presented to him today and he sent her over here for blood transfusion. She reports she has had some chest pain to the center of her chest. She reports black stools but is taking iron. She reports some vomiting last week. Denies fever and diarrhea. I have greeted and performed a rapid initial assessment of this patient. A comprehensive ED assessment and evaluation of the patient, analysis of test results and completion of the medical decision making process will be conducted by additional ED providers. TRAVEL OUTSIDE OF THE [place] IN LAST 30 DAYS: No - Related Data Allergies/Adverse Reactions: codeine [Codeine] Allergy (Intermediate, Verified 05/15/18 10:17) GI upset Past Medical History - Past Medical History Cardiac Medical History: Reports: Hx Atrial Fibrillation, Hx Coronary Artery Disease - stent few years ago, Hx Hypercholesterolemia, Hx Hypertension, Hx Heart Murmur - states SBE prophylaxis required Denies: Hx Congestive Heart Failure, Hx Heart Attack, Hx Peripheral Vascular Disease, Hx Pulmonary Embolism Pulmonary Medical History: Reports: Hx Bronchitis - frequency has decreased, no longer exposed to 2nd smoke Denies: Hx Asthma, Hx COPD, Hx Pneumonia, Hx Respiratory Failure, Hx Sleep Apnea, Hx Tuberculosis Neurological Medical History: Denies: Hx Cerebrovascular Accident, Hx Seizures, Hx Parkinson's Disease Endocrine Medical History: Reports: Hx Diabetes Mellitus Type 2. Denies: Hx Graves' Disease, Hx Hyperthyroidism, Hx Hypothyroidism Renal/ Medical History: Reports: Hx Kidney Stones - 2011, denies surgical intervention. Denies: Hx End Stage Renal Disease, Hx Ovarian Cysts, Hx Peritone al Dialysis, Hx Pelvic Inflammatory Disease Malignancy Medical History: Reports: Hx Cervical Cancer. Denies: Hx Breast Cancer, Hx Leukemia, Hx Lung Cancer, Hx Ovarian Cancer GI Medical History: Reports: Hx Gastroesophageal Reflux Disease - meds x 4 years. Denies: Hx Crohn's Disease, Hx Hiatal Hernia, Hx Irritable Bowel, Hx Liver Failure, Hx Pancreatitis, Hx Ulcer Musculoskeltal Medical History: Reports Hx Arthritis, Denies Hx Fibromyalgia, Denies Hx Multiple Sclerosis, Denies Hx Muscular Dystrophy, Reports Hx Musculos keletal Deformity, Reports Hx Musculoskeletal Trauma, Denies Hx Systemic Lupus Erythematosus Psychiatric Medical History: Denies: Hx Bipolar Disorder, Hx Dementia, Hx Depression, Hx Post Traumatic Stress Disorder, Hx Schizophrenia Traumatic Medical History: Denies: Hx Fractures Infectious Medical History: Denies: Hx HIV Past Surgical History: Reports: Hx Cardiac Catheterization - 1 stent, Hx Cardiac Surgery - stents, Hx Cholecystectomy, Hx Hysterectomy, Hx Orthopedic Surgery - bilateral knee replacement, shoulder replacement. Denies: Hx Appendectomy, Hx Bowel Surgery, Hx Section, Hx Colostomy, Hx Coronary Artery Bypass Graft, Hx Gastric Bypass Surgery, Hx Herniorrhaphy, Hx Mastectomy, Hx Pacemaker, Hx Tonsillectomy, Hx Tubal Ligation - Immunizations Immunizations up to date: No Hx Diphtheria, Pertussis, Tetanus Vaccination: No Physical Exam - Vital signs Vitals: Temp Pulse Resp BP Pulse Ox 98.6 F 103 H 16 117/59 L 98 05/06/19 10:21 05/06/19 10:21 05/06/19 10:21 05/06/19 10:21 05/06/19 10:21 Course - Vital Signs Vital signs: Temp Pulse Resp BP Pulse Ox 98.6 F 103 H 16 117/59 L 98 05/06/19 10:21 05/06/19 10:21 05/06/19 10:21 05/06/19 10:21 05/06/19 10:21 Doctor's Discharge - Discharge Referrals: Jessica DE ANDA MD [Primary Care Provider] - Follow up as needed
[2019-05-06 12:09] LABS: ABSOLUTE EOSINOPHILS # (AUTO) 0.1 10^3/uL (0.0-0.6); ABSOLUTE LYMPHOCYTES (AUTO) 1.2 10^3/uL (0.5-4.7); ABSOLUTE MONOCYTES (AUTO) 0.5 10^3/uL (0.1-1.4); ABSOLUTE NEUT (AUTO) 6.1 10^3/uL (1.7-8.2); BASOPHILS % (AUTO) 0.6 % (0-2); EOSINOPHILS % (AUTO) 1.4 % (0-6); HEMATOCRIT 27.3 % (36.0-47.0); HEMOGLOBIN 8.3 g/dL (12.0-15.5); LYMPHOCYTES % (AUTO) 15.1 % (13-45); MEAN CORPUSCULAR HEMOGLOBIN 27.1 pg (27.0-33.4); MEAN CORPUSCULAR HGB CONC 30.5 g/dL (32.0-36.0); MEAN CORPUSCULAR VOLUME 89 fl (80-97); MONOCYTES % (AUTO) 6.2 % (3-13); PLATELET COUNT 238 10^3/uL (150-450); RED BLOOD COUNT 3.07 10^6/uL (3.72-5.28); RED CELL DISTRIBUTION WIDTH 16.7 % (11.5-14.0); SEGMENTED NEUTROPHILS % (AUTO) 76.7 % (42-78); TOTAL CELLS COUNTED % (AUTO) 100 %
[2019-05-06 12:21] LABS: APPEARANCE,URINE SLIGHTLY-CLOUDY; BILIRUBIN,URINE NEGATIVE (NEGATIVE); COLOR,URINE YELLOW; GLUCOSE, URINE NEGATIVE (NEGATIVE); KETONES,URINE NEGATIVE (NEGATIVE); LEUKOCYTE ESTERASE,URINE NEGATIVE (NEGATIVE); NITRITE,URINE NEGATIVE (NEGATIVE); PROTEIN,URINE NEGATIVE (NEGATIVE); URINE SPECIFIC GRAVITY 1.018; UROBILINOGEN,URINE NEGATIVE mg/dL (<2.0)
[2019-05-06 13:08] LABS: ALBUMIN 3.8 g/dL (3.5-5.0); ALKALINE PHOSPHATASE 103 U/L (38-126); ANION GAP 12 (5-19); ASPARTATE AMINO TRANSFERASE 22 U/L (14-36); BILIRUBIN,DIRECT 0.2 mg/dL (0.0-0.4); BILIRUBIN,TOTAL 0.5 mg/dL (0.2-1.3); BLOOD UREA NITROGEN 23 mg/dL (7-20); CALCIUM 9.1 mg/dL (8.4-10.2); CARBON DIOXIDE 27 mmol/L (22-30); CHLORIDE 101 mmol/L (98-107); GLUCOSE 157 mg/dL (75-110); POTASSIUM 4.6 mmol/L (3.6-5.0); TOTAL PROTEIN 6.8 g/dL (6.3-8.2)
--- NOTE | 2019-05-06 13:20 | EKG REPORT ---
SEVERITY:- ABNORMAL ECG - SINUS RHYTHM LEFT VENTRICULAR HYPERTROPHY : Confirmed by: Francisco Monsalve MD 06-May-2019 13:19:10
--- NOTE | 2019-05-06 13:26 | ER Document Report ---
ED Dizziness/Weakness - General Chief Complaint: Dizziness Stated Complaint: DIZZINESS Time Seen by Provider: 05/06/19 11:09 Mode of Arrival: Ambulatory Notes: Ms. Figueroa is a 69 yo f w/ PMH diabetes, hypertension, mixed hyperlipidemia, GERD, paroxysmal A. fib, CAD w/ [address], iron deficiency anemia second tj to blood loss, previous AVM of the GI tract, and GI bleed presenting to the ED for dizziness and at the request of her primary care doctor. Briefly, the patient states that she has been having dizziness and lightheadedness over the past 2 to 3 weeks. She states however over the past week, her symptoms have progressed and she feels as if she is about to pass out. She adds that she has dyspnea with minimal exertion including brushing her hair or brushing her teeth, as well as chest pain with minimal exertion. She states that her family members have told her that she appears more pale than usual. She had routine blood work done with her primary care doctor on 1223 and her H&H was noted to be 7.5/25.2. She went and saw her PCP, Dr. Mckinnon today and given the further description of her symptoms, he recommended that she present to the ED for further evaluation of a GI bleed and possible need for transfusion. Patient states that her last colonoscopy/endoscopy was somewhere between 6 months to 1 year ago and she had polyps removed at that point in time. She adds that her stool is chronically dark and she takes iron daily however she denies any bright red blood per rectum. TRAVEL OUTSIDE OF THE [place] IN LAST 30 DAYS: No - Related Data Allergies/Adverse Reactions: codeine [Codeine] Allergy (Intermediate, Verified 05/15/18 10:17) GI upset Past Medical History - General Information source: Patient - Social History Smoking Status: Never Smoker Frequency of alcohol use: None Drug Abuse: None Family History: CAD, CVA, DM, Hypertension, Malignancy Patient has suicidal ideation: No Patient has homicidal ideation: No - Past Medical History Cardiac Medical History: Reports: Hx Atrial Fibrillation, Hx Coronary Artery Disease - stent few years ago, Hx Hypercholesterolemia, Hx Hypertension, Hx Heart Murmur - states SBE prophylaxis required Denies: Hx Congestive Heart Failure, Hx Heart Attack, Hx Peripheral Vascular Disease, Hx Pulmonary Embolism Pulmonary Medical History: Reports: Hx Bronchitis - frequency has decreased, no longer exposed to 2nd smoke Denies: Hx Asthma, Hx COPD, Hx Pneumonia, Hx Respiratory Failure, Hx Sleep Apnea, Hx Tuberculosis Neurological Medical History: Denies: Hx Cerebrovascular Accident, Hx Seizures, Hx Parkinson's Disease Endocrine Medical History: Reports: Hx Diabetes Mellitus Type 2. Denies: Hx Graves' Disease, Hx Hyperthyroidism, Hx Hypothyroidism Renal/ Medical History: Reports: Hx Kidney Stones - 2012, denies surgical intervention. Denies: Hx End Stage Renal Disease, Hx Ovarian Cysts, Hx Peritoneal Dialysis, Hx Pelvic Inflammatory Disease Malignancy Medical History: Reports: Hx Cervical Cancer. Denies: Hx Breast Cancer, Hx Leukemia, Hx Lung Cancer, Hx Ovarian Cancer GI Medical History: Reports: Hx Gastroesophageal Reflux Disease - meds x 4 years. Denies: Hx Crohn's Disease, Hx Hiatal Hernia, Hx Irritable Bowel, Hx Liver Failure, Hx Pancreatitis, Hx Ulcer Musculoskeletal Medical History: Reports Hx Arthritis, Denies Hx Fibromyalgia, Denies Hx Multiple Sclerosis, Denies Hx Muscular Dystrophy, Reports Hx Musculoskeletal Deformity, Reports Hx Musculoskeletal Trauma, Denies Hx Systemic Lupus Erythematosus Psychiatric Medical History: Denies: Hx Bipolar Disorder, Hx Dementia, Hx Depression, Hx Post Traumatic Stress Disorder, Hx Schizophrenia Traumatic Medical History: Denies: Hx Fractures Infectious Medical History: Denies: Hx HIV Past Surgical History: Reports: Hx Cardiac Catheterization - 1 stent, Hx Cardiac Surgery - stents, Hx Cholecystectomy, Hx Hysterectomy, Hx Orthopedic Surgery - bilateral knee replacement, shoulder replacement. Denies: Hx Appendectomy, Hx Bowel Surgery, Hx Section, Hx Colostomy, Hx Coronary Artery Bypass Graft, Hx Gastric Bypass Surgery, Hx Herniorrhaphy, Hx Mastectomy, Hx Pacemaker, Hx Tonsillectomy, Hx Tubal Ligation - Immunizations Immunizations up to date: No Hx Diphtheria, Pertussis, Tetanus Vaccination: No Hx Pneumococcal Vaccination: 05/08/09 Review of Systems - Review of Systems Constitutional: See HPI EENT: No symptoms reported Cardiovascular: See HPI Respiratory: See HPI Gastrointestinal: See HPI Genitourinary: No symptoms reported Female Genitourinary: No symptoms reported Musculoskeletal: No symptoms reported Skin: No symptoms reported Hematologic/Lymphatic: No symptoms reported Neurological/Psychological: No symptoms reported Physical Exam - Vital signs Vitals: Temp Pulse Resp BP Pulse Ox 98.6 F 103 H 16 117/59 L 98 05/06/19 10:21 05/06/19 10:21 05/06/19 10:21 05/06/19 10:21 05/06/19 10:21 Interpretation: Tachycardic - General General appearance: Alert, Other - Pallor - HEENT Head: Normocephalic, Atraumatic Eyes: Normal Conjunctiva: Other - pale Pupils: PERRL - Respiratory Respiratory status: No respiratory distress Chest status: Nontender Breath sounds: Normal Chest palpation: Normal - Cardiovascular Rhythm: Tachycardia Heart sounds: Normal auscultation Murmur: No - Abdominal Inspection: Normal Distension: No distension Bowel sounds: Normal Tenderness: Nontender Organomegaly: No organomegaly - Rectal Stool: Heme positive - Traces amount of stool with mucus, unable to appreciate color but grossly guaiac positive on Hemoccult card Hemorrhoids: External - 1 hemorrhoid noted at 6 o'clock - soft, flat, nonthrombosed, not actively bleeding. - Back Back: Normal, Nontender - Extremities General upper extremity: Normal inspection, Nontender, Normal color, Normal ROM, Normal temperature General lower extremity: Normal inspection, Nontender, Normal color, Normal ROM, Normal temperature, Normal weight bearing. No: Tim's sign - Neurological Neuro grossly intact: Yes Cognition: Normal Orientation: AAOx4 [place] Coma Scale Eye Opening: Spontaneous [place] Coma Scale Verbal: Oriented [place] Coma Scale Motor: Obeys Commands [place] Coma Scale Total: 15 Speech: Normal Motor strength normal: LUE, RUE, LLE, RLE Sensory: Normal - Psychological Associated symptoms: Normal affect, Normal mood - Skin Skin Temperature: Warm Skin Moisture: Dry Skin Color: Pale Course - Re-evaluation Re-evalutation: Patient is chronically ill-appearing but nontoxic. Initial vitals notable for tachycardia. Patient does appear pallor in coloration. Differential diagnosis includes GI bleed, anemia, AV malformation bleed Patient's Hemoccult today is positive consistent with a GI bleed. Unable to appreciate the color of the stool given the small amount and prior dominantly mucus that was obtained via rectal however it was quite positive on Hemoccult. H&H today is 8.3/27.3, which is improved from the 7.5/25.2 on 1222. Patient on January 15 was noted to be 10.4/32.1. PT/INR within normal limits. On labs from 29 April, patient's creatinine was elevated to 1.67. However today it is 1.3. Remainder of CMP is within normal limits although the patient does have an increased BUN to creatinine ratio, consistent with dehydration, likely related to the patient's ongoing GI bleed. UA is otherwise unremarkable. 05/06/19 13:[address] Aldana. Recommended NPO. Pt will be added to list to be scoped. 05/06/19 13:26 Spoke to Kin regarding admission, pt will be admitted by Torres. 05/06/19 13:[address] Macdonald. Will accept as Tele 05/06/19 13:34 Given that the patient has positive guaiac consistent with active GI bleeding and an H&H of 8.3/27.3, plan to transfuse 1 unit of blood. Patient was made n.p.o. per surgical physicians request. Patient will be admitted to telemetry for H&H trending, while she awaits her scope. - Vital Signs Vital signs: Temp Pulse Resp BP Pulse Ox 97.9 F 102 H 16 138/80 H 99 05/06/19 14:45 05/06/19 15:50 05/06/19 15:50 05/06/19 15:50 05/06/19 15:50 - Laboratory Result Diagrams: 05/06/19 11:53 05/06/19 11:53 Laboratory results interpreted by me: 05/06/19 05/06/19 05/06/19 11:53 11:53 11:53 RBC 3.07 L Hgb 8.3 L Hct 27.3 L MCHC 30.5 L RDW 16.7 H BUN 23 H Creatinine 1.36 H Est GFR ( Amer) 47 L Est GFR (MDRD) Non-Af 39 L Glucose 157 H Crossmatch See Detail Critical Care Note - Critical Care Note Total time excluding time spent on procedures (mins): 35 - Anemia with active bleeding, required multiple re-evaluations, required Protonix as well as blood t ransfusion, discussion with consultants. Patient will be admitted for endoscopy and further care. Discharge - Discharge Clinical Impression: Pallor, Lightheadedness, Dyspnea on exertion, Iron deficiency anemia secondary to blood loss (chronic), Hx of arteriovenous malformation (AVM) GI bleed Qualifiers: GI bleed type/associated pathology: unspecified gastrointestinal hemorrhage type Qualified Code(s): K92.2 - Gastrointestinal hemorrhage, unspecified Anemia Qualifiers: Anemia type: iron deficiency Iron deficiency anemia type: chronic blood loss Qualified Code(s): D50.0 - Iron deficiency anemia secondary to blood loss (chronic) Condition: Fair Disposition: ADMITTED INPATIENT Admitting Provider: Torres (Hospitalist) Unit Admitted: Telemetry
[2019-05-06] MEDS ORDERED: PANTOPRAZOLE SODIUM 40 MG VIAL IV ONE (13:28)
[2019-05-06] MEDS ORDERED: NORMAL SALINE 250 ML IV PRN ×3 (13:36→18:33)
--- NOTE | 2019-05-06 13:37 | RADIOLOGY REPORT (SQ) ---
EXAM DESCRIPTION: CHEST 2 VIEWS COMPLETED DATE/TIME: 05/06/2019 12:34 pm REASON FOR STUDY: cp dizzy COMPARISON: 05/15/2018 EXAM PARAMETERS: NUMBER OF VIEWS: two views TECHNIQUE: Digital Frontal and Lateral radiographic views of the chest acquired. RADIATION DOSE: NA LIMITATIONS: none FINDINGS: LUNGS AND PLEURA: No opacities, masses or pneumothorax. No pleural effusion. MEDIASTINUM AND HILAR STRUCTURES: No masses or contour abnormalities. HEART AND VASCULAR STRUCTURES: Heart normal size. No evidence for failure. BONES: No acute findings. HARDWARE: None in the chest. OTHER: No other significant finding. IMPRESSION: NO ACUTE RADIOGRAPHIC FINDING IN THE CHEST. TECHNICAL DOCUMENTATION: JOB ID: [id number]- All Rights Reserved Reading location - IP/workstation name: [email or web address]
[2019-05-06 13:39] LABS: PROTHROMBIN TIME 15.3 SEC (11.4-15.4)
[2019-05-06] MEDS ORDERED: PROMETHAZINE HCL INJ 25 MG/1 ML VIAL IV PRN (14:37)
[2019-05-06] MEDS ORDERED: IPRATROPIUM/ALBUTEROL 0.5-2.5 MG/3 ML AMPUL NEB PRN (14:37)
[2019-05-06] MEDS ORDERED: ONDANSETRON HCL INJ/PF 4 MG/2 ML SDV IV PRN (14:37)
[2019-05-06] MEDS ORDERED: TEMAZEPAM 7.5 MG CAPSULE PO PRN (14:37)
[2019-05-06] MEDS ORDERED: ACETAMINOPHEN 325 MG TABLET PO PRN (14:37)
[2019-05-06] MEDS ORDERED: DEXTROSE 50%-WATER 25 GM/50 ML DISP.SYRIN IV PRN ×4 (14:37→14:45)
[2019-05-06] MEDS ORDERED: GLUCAGON,HUMAN RECOMB 1 MG INJ SUBCUT PRN (14:37)
[2019-05-06] MEDS ORDERED: DEXTROSE 40% GEL 15 GM TUBE PO PRN ×4 (14:37→14:45)
[2019-05-06] MEDS ORDERED: HYDRALAZINE HCL INJ/PF 20 MG/1 ML SDV IV PRN (14:44)
[2019-05-06] MEDS ORDERED: METOPROLOL TARTRATE PF/INJ 5 MG/5 ML SDV IV PRN (14:44)
[2019-05-06] MEDS ORDERED: GLUCAGON,HUMAN RECOMB 1 MG INJ IM PRN (14:45)
[2019-05-06] MEDS ORDERED: DIPHENHYDRAMINE HCL 50 MG/ML VIAL ONE (14:47)
[2019-05-06] MEDS ORDERED: ONDANSETRON HCL INJ/PF 4 MG/2 ML SDV ONE (14:47)
[2019-05-06] MEDS ORDERED: GLUCAGON,HUMAN RECOMB 1 MG INJ ONE (14:48)
[2019-05-06] MEDS ORDERED: EPINEPHRINE INJ 1 MG/10 ML DISP.SYRIN ONE (14:48)
[2019-05-06] MEDS ORDERED: NALOXONE HCL INJ/PF 0.4 MG/1 ML SDV ONE (14:48)
[2019-05-06] MEDS ORDERED: FLUMAZENIL INJ 0.5 MG/5 ML VIAL ONE (14:48)
--- NOTE | 2019-05-06 15:13 | PDOC H&P ---
History of Present Illness Admission Date/PCP: 05/06/19 14:06 MEKA MCKINNON MD History of Present Illness: TICO NG is a 69 year old female past medical history of CAD status post PCI x1 stent in 2006, hyperlipidemia, GERD, paroxysmal A. fib on Eliquis, hypertension, diabetes, AV malformation status post endoscopic cauterization was sent to ED from PCPs office for evaluation of dizziness and anemia. And has been having worsening dyspnea on exertion, associated with lighthea dedness, presyncope, and occasional substernal pressure-like chest pain for the last 2 to 3 weeks worsening in the last 1 week. She had routine blood work on 04/29/2019 and her hemoglobin was 7.5 Bactrim. Today when she went to see Dr. Mckinnon her PCP she was sent to ED for further evaluation. Patient states that her last colonoscopy/endoscopy was somewhere between 6 months to 1 year ago and she had polyps removed at that point in time and also has had endoscopic cauterization of her AV malformation in the past. In ED she was noted to be tachypneic, very pale, with hemoglobin of 8.3, cr eatinine of 1.36 and guaiac positive stool. EKG was sinus rhythm and troponin was negative. ED physician had contacted Dr. Aldana from surgery and he has suggested for patient to be admitted made n.p.o. for possible endoscopy tomorrow. Past Medical History Cardiac Medical History: Reports: Atrial Fibrillation, Coronary Artery Disease - stent few years ago, Hyperlipidema, Hypertension, Heart Murmur - states SBE prophylaxis required Denies: Congestive Heart Failure, Myocardial Infarction, Peripheral Vascular Disease, Pulmonary Embolism Pulmonary Medical History: Reports: Bronchitis - frequency has decreased, no longer exposed to 2nd smoke Denies: Asthma, Chronic Obstructive Pulmonary Disease (COPD), Pneumonia, Respiratory Failure, Sleep Apnea, Tuberculosis Neurological Medical History: Denies: Seizures Endocrine Medical History: Reports: Diabetes Mellitus Type 2 Denies: Hyperthyroidism, Hypothyroidism Renal/ Medical History: Denies: End Stage Renal Disease Malignancy Medical History: Reports: Cervical Cancer Denies: Breast Cancer, Leukemia, Lung Cancer, Ovarian Cancer GI Medical History: Reports: Gastroesophageal Reflux Disease - meds x 4 years Denies: Crohn's Disease, Hiatal Hernia Musculoskeltal Medical History: Reports: Arthritis Denies: Fibromyalgia Psychiatric Medical History: Denies: Bipolar Disorder, Dementia, Depression, Post Traumatic Stress Disorder Hematology: Reports: Anemia - blood transfusion pre [facility] BSO, 2001 Denies: Hemophilia, Sickle Cell Disease Infectious Medical History: Denies: HIV Past Surgical History Past Surgical History: Reports: Cardiac Catheterization - 1 stent, Cholecystectomy, Hysterectomy, Orthopedic Surgery - bilateral knee replacement, shoulder replacement Denies: Amputation, Appendectomy, Section, Colostomy, Coronary Artery Bypass Graft, Gastric Bypass Surgery, Herniorrhaphy, Mastectomy, Pacemaker, Tonsillectomy, Tubal Ligation Social History Smoking Status: Never Smoker Frequency of Alcohol Use: None Hx Recreational Drug Use: No Drugs: Cocaine Hx Prescription Drug Abuse: No Family History Family History: CAD, CVA, DM, Hypertension, Malignancy Parental Family History Reviewed: Yes Children Family History Reviewed: Yes Sibling(s) Family History Reviewed.: Yes Medication/Allergy Home Medications: Atorvastatin Calcium [Lipitor 40 mg Tablet] 40 mg PO QHS 05/15/18 Furosemide [Lasix 20 mg Tablet] 20 mg PO QAM 05/15/18 Montelukast Sodium [Singulair 10 mg Tablet] 10 mg PO QPM 05/15/18 Nitroglycerin [Nitrostat 0.4 mg (1/150 Gr) Tabs 25/Bottle] 0.4 mg SL Q5MP PRN 05/15/18 Omeprazole 20 mg PO BID 05/15/18 Apixaban [Eliquis 5 mg Tablet] 5 mg PO BID #0 05/20/18 Cyanocobalamin (Vitamin B-12) [Vitamin B-12 1000 mcg Tablet] 1,000 mcg PO DAILY #90 tablet 05/20/18 Diltiazem HCl [Cardizem Cd 180 mg Capsule] 180 mg PO DAILY #90 capsule.cr 05/20/18 Ferrous Sulfate [Feosol 325 mg Tablet] 325 mg PO DAILY #90 tablet 05/20/18 Hum Insulin NPH/Reg Insulin Hm [Insulin 70-30 (NPH/Reg) 100 unit/mL] 30 unit SUBCUT BID #20 ml 05/20/18 Losartan Potassium [Cozaar 100 mg Tablet] 100 mg PO QAM #90 05/20/18 Diazepam [Valium 5 mg Tablet] 5 mg PO QIDP PRN #15 tablet 07/16/18 Allergies/Adverse Reactions: codeine [Codeine] Allergy (Intermediate, Verified 05/15/18 10:17) GI upset Physical Exam Vital Signs: Temp Pulse Resp BP Pulse Ox 97.9 F 71 22 H 151/73 H 100 05/06/19 14:45 05/06/19 14:45 05/06/19 14:45 05/06/19 14:45 05/06/19 14:45 Intake & Output 05/05/19 05/06/19 05/07/19 06:59 06:59 06:59 Weight 116.8 kg General appearance: PRESENT: mild distress, morbidly obese, other - Pale Eye exam: PRESENT: conjunctiva pale Respiratory exam: PRESENT: clear to auscultation giuliano. ABSENT: rales, rhonchi, wheezes Cardiovascular exam: PRESENT: RRR. ABSENT: diastolic murmur, rubs, systolic murmur GI/Abdominal exam: PRESENT: normal bowel sounds, soft. ABSENT: distended, guarding, mass, organolmegaly, rebound, tenderness Neurological exam: PRESENT: alert, awake, oriented to person, oriented to place, oriented to time, oriented to situation, CN II-XII grossly intact. ABSENT: motor sensory deficit Skin exam: PRESENT: dry, intact, warm. ABSENT: cyanosis, rash Results Laboratory Results: 05/06/19 11:53 05/06/19 11:53 05/06/19 05/06/19 05/06/19 11:53 11:53 11:53 WBC 8.0 RBC 3.07 L Hgb 8.3 L Hct 27.3 L MCV 89 MCH 27.1 MCHC 30.5 L RDW 16.7 H Plt Count 238 Seg Neutrophils % 76.7 Sodium 140.0 Potassium 4.6 Chloride 101 Carbon Dioxide 27 Anion Gap 12 BUN 23 H Creatinine 1.36 H Est GFR ( Amer) 47 L Glucose 157 H Calcium 9.1 Total Bilirubin 0.5 AST 22 Alkaline Phosphatase 103 Total Protein 6.8 Albumin 3.8 Urine Color Urine Appearance Urine pH Ur Specific [place] Urine Protein Urine Glucose (UA) Urine Ketones Urine Blood Urine Nitrite Ur Leukocyte Esterase Urine WBC (Auto) Urine RBC (Auto) Blood Type A POSITIVE Antibody Screen NEGATIVE 05/06/19 12:00 WBC RBC Hgb Hct MCV MCH MCHC RDW Plt Count Seg Neutrophils % Sodium Potassium Chloride Carbon Dioxide Anion Gap BUN Creatinine Est GFR ( Amer) Glucose Calcium Total Bilirubin AST Alkaline Phosphatase Total Protein Albumin Urine Color YELLOW Urine Appearance SLIGHTLY-CLOUDY Urine pH 5.0 Ur Specific [place] 1.018 Urine Protein NEGATIVE Urine Glucose (UA) NEGATIVE Urine Ketones NEGATIVE Urine Blood NEGATIVE Urine Nitrite NEGATIVE Ur Leukocyte Esterase NEGATIVE Urine WBC (Auto) 0 Urine RBC (Auto) 0 Blood Type Antibody Screen 05/06/19 11:53 Troponin I < 0.012 Impressions: Chest X-Ray 05/06/19 11:11 IMPRESSION: NO ACUTE RADIOGRAPHIC FINDING IN THE CHEST. Assessment and Plan - Diagnosis (1) Dyspnea on exertion Is this a current diagnosis for this admission?: Yes Plan: Most likely due to severe anemia. EKG no acute changes. Troponin WNL. SPO2 WNL on room air. Afebrile. Chest x-ray no acute changes. Admit to telemetry, supportive transfusions, monitor for fall, supplemental oxygen. (2) Iron deficiency anemia secondary to blood loss (chronic) Is this a current diagnosis for this admission?: Yes Plan: Likely due to chronic blood loss due to GI malformation. Restart home meds. (3) PAYAM (acute kidney injury) Is this a current diagnosis for this admission?: Yes Plan: Prerenal. Likely due to dehydration. Cautious volume resuscitation, monitor volume status and electrolytes. Avoid nephrotoxic meds. If no improvement will consult nephrology. (4) CAD (coronary artery disease) Qualifiers: Coronary Disease-Associated Artery/Lesion type: [place] artery Is this a current diagnosis for this admission?: Yes Plan: History of CAD. Status post PCI x1 stent 2006. Complaining of intermittent chest pain for the last 2 to 3 weeks. Denies any active chest pain at this admission. EKG no acute changes. Troponin negative. Patient had nuclear stress test this month pending result. Rib Bender Dr. Tania chavez. Admit to telemetry, hold antiplatelets, restart beta-blockers, NAYANA, statins. PRN nitro and morphine. (5) Hx of arteriovenous malformation (AVM) Is this a current diagnosis for this admission?: Yes Plan: Likely results of bleeding. As per patient she has had endoscopic cauterization in the past. Admit to telemetry, monitor H&H, surgery consulted. Upper GI endoscopy planned. Follow-up recommendations and findings. (6) Paroxysmal atrial fibrillation Is this a current diagnosis for this admission?: Yes Plan: History of paroxysmal A. fib. Currently sinus rhythm. On Eliquis and Cardizem. Admit to telemetry. Restart Cardizem. PRN metoprolol. Hold Eliquis due to GI bleed. Rib Bender is Dr. Day. Will consult about continuation of Eliquis. (7) Hyperlipidemia Is this a current diagnosis for this admission?: Yes Plan: Takes a statin at home. Restart home meds. (8) Morbid obesity with BMI of 45.0-49.9, adult Is this a current diagnosis for this admission?: Yes Plan: BMI 45.6. Diet and lifestyle modification recommended. Patient is a candidate for bariatric intervention.
[2019-05-06] MEDS: MIDAZOLAM 2 MG/2 ML INJ ONE ×4 (15:20→15:27)
[2019-05-06] MEDS: FENTANYL CITRATE INJ/PF 100 MCG/2 ML AMPUL ONE ×2 (15:20→15:22)
--- NOTE | 2019-05-06 15:43 | Operative Report ---
Operative Report DATE OF SURGERY: 05/06/19 PREOPERATIVE DIAGNOSIS: 1. Blood loss anemia. 2. History of gastric AVM with GI bleed POSTOPERATIVE DIAGNOSIS: Same with. 1. 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 2. Small hiatal hernia. 3. Severe, distal gastritis, not actively bleeding OPERATION: 1 esophagogastroduodenoscopy. 2. Distal gastric antral mucosal biopsy SURGEON: CLEM ROJAS ANESTHESIA: Moderate Sedation TISSUE REMOVED OR ALTERED: Mucosal biopsy COMPLICATIONS: None INTRAOPERATIVE FINDINGS: See below PROCEDURE: Patient was taken from the emergency department examination room to the trauma bay where appropriate monitor devices were attached. Mouthpiece inserted. Surgical plan and surgical timeout were conducted. The flexible adult upper endoscope was advanced to the oropharynx, esophagus through the stomach into the duodenum. This is well-tolerated by the patient. The first and second portions of the duodenum were normal. The scope was withdrawn through the pylorus, and just proximal to the opening of the pylorus was a circumstantial erythematous area of severe gastritis. Photos taken. There was no samy ulcer tumor or stricture or active bleeding. A good look at the stomach was obtained and retroflexion revealed no evidence of tumor stricture bleeding or retained gastric contents. A biopsy of the distal antrum was performed with a cold forceps device and sent for BENNY and histologic analysis. Bleeding was minimal. The scope was withdrawn through the esophagus, and of note the patient's GE junction was at approximately 32 cm from the incisor. At approximately 25 cm from the incisor there was an esophageal bulge in the mucosa, blue, consistent with a esophageal varix. Photo taken. The scope was withdrawn from the patient's oropharynx. She tolerated the procedure well. Impression: Severe distal gastritis, however no evidence of active bleeding Discussion and recommendations: 1. The findings on upper endoscopy may but not convincingly explain patient's blood loss anemia. 2. I would recommend medical management. Surgery will sign off at this point. Please reconsult surgery if clinically indicated for additional interventions.
[2019-05-06] MEDS: PANTOPRAZOLE SODIUM 40 MG TABLET.DR PO SCH (17:45)
[2019-05-06 18:21] LABS: ABSOLUTE BASOPHILS # (AUTO) 0.1 10^3/uL (0.0-0.2); ABSOLUTE EOSINOPHILS # (AUTO) 0.1 10^3/uL (0.0-0.6); ABSOLUTE LYMPHOCYTES (AUTO) 1.7 10^3/uL (0.5-4.7); ABSOLUTE MONOCYTES (AUTO) 0.6 10^3/uL (0.1-1.4); ABSOLUTE NEUT (AUTO) 5.1 10^3/uL (1.7-8.2); BASOPHILS % (AUTO) 0.7 % (0-2); EOSINOPHILS % (AUTO) 1.8 % (0-6); HEMATOCRIT 25.8 % (36.0-47.0); HEMOGLOBIN 8.1 g/dL (12.0-15.5); LYMPHOCYTES % (AUTO) 22.7 % (13-45); MEAN CORPUSCULAR HEMOGLOBIN 27.6 pg (27.0-33.4); MEAN CORPUSCULAR HGB CONC 31.4 g/dL (32.0-36.0); MEAN CORPUSCULAR VOLUME 88 fl (80-97); MONOCYTES % (AUTO) 8.2 % (3-13); PLATELET COUNT 190 10^3/uL (150-450); RED BLOOD COUNT 2.94 10^6/uL (3.72-5.28); RED CELL DISTRIBUTION WIDTH 16.3 % (11.5-14.0); SEGMENTED NEUTROPHILS % (AUTO) 66.6 % (42-78); TOTAL CELLS COUNTED % (AUTO) 100 %; WHITE BLOOD COUNT 7.6 10^3/uL (4.0-10.5)
[2019-05-06] MEDS ORDERED: DIPHENHYDRAMINE HCL 25 MG CAPSULE PO PRN (18:33)
[2019-05-06] MEDS ORDERED: FUROSEMIDE 20 MG TABLET PO PRN (18:33)
[2019-05-06] MEDS: HYDRALAZINE HCL 50 MG TABLET PO SCH (21:58)
[2019-05-06] MEDS: INSULIN LISPRO 100 UNIT/ML 3 ML VIAL SUBCUT SCH (22:05)
--- NOTE | 2019-05-06 22:38 | PDOC CONSULTATION ---
Consultation-Blank Consultation: CARDIOLOGY CONSULTATION by Dr. Maria Eugenia Day on 05/06/2019. Patient seen at 3:30 PM. 60 minutes spent with patient with more than 50% of time spent in direct patient care. REASON FOR CONSULTATION: Patient has history of paroxysmal atrial fibrillation on Eliquis admitted with anemia and guaiac positive stools. CONSULT REQUESTING PHYSICIAN: Dr. Saleh, [facility] hospitalist physician group. HISTORY OF PRESENT ILLNESS: Patient is a 69-year-old female with known history of 1 episode of atrial fibrillation on Eliquis and Cardizem, with no recurrence, history of hypertension, coronary artery disease and history of LAD stent in stent in the diagonal in the past admitted with to 3 weeks of progressively i ncreasing dyspnea on exertion to rest shortness of breath with increasing fatigue and generalized fatigue and weakness. She was sent to the emergency room for further evaluation due to her being anemic with the hemoglobin being 8.3 from the labs ordered by her primary care physician Dr. Nuno. The patient has no clear-cut anginal symptoms. The patient has a past history of GI AV malformation. The patient did have an EGD which showed severe gastritis but no definite conclusive evidence of the cause of the patient's anemia. She also has a history of diabetes mellitus. There is no history of TIA CVA. There is no history of asthma or COPD. There is no history of chronic kidney disease. There is no history of congestive heart failure. The patient just received 1 unit of packed RBCs. PAST MEDICAL HISTORY: History of hypertension. History of coronary artery disease with history of stent in the LAD in 2006 11 and also stent in the first diagonal branch. The patient in June 27, had a Lexiscan stress Cardiolite in my office. She developed atrial fibrillation which is the only known episode and had chest pain. The patient was sent for cardiac catheterization even though the myocardial perfusion imaging was normal. Her cardiac catheterization showed that there was a 70 to 80% mid LAD stenosis, with mild disease in the LAD stent in the proximal portion. She had an FFR which showed that the lesion was not flow-limiting and hence the patient was relegated to medical treatment. The patient has not had anginal symptoms. She apart from the one episode of atrial fibrillation has not had any clinical [place] documented recurrence of atrial fibrillation. She has a history of chronic kidney disease stage III. She has a past history of GI bleed said to be due to GI AV mal formation. In view of the patient's GI AV malformation, and the patient is high corrected Jd vas 2 score, requiring need for anticoagulation work-up was done to refer the patient for a watchman procedure. Shows no history of thyroid disease. She has a history of arthritis but no collagen vascular disease. She also has a history of hyperlipidemia. She also has a history of uterine cancer and is cured. She has a history of bipolar disorder and history of urinary incontinence. She also has morbid obesity. So she has no history of sleep apnea. PAST SURGICAL HISTORY: A catheterization and stent placement. Knee arthroplasty, gallbladder surgery, hysterectomy bilateral knee replacement. Social HISTORY: She has never smoked. There is notes of EtOH abuse. Allergies: She is allergic to codeine. RESUSCITATION STATUS: The patient is a full code. Her daughteris her surrogate healthcare decision maker. FAMILY HISTORY is positive for cardiomyopathy congestive heart failure coronary artery disease, diabetes, hypertension, and myocardial infarction both parents had coronary artery disease and from it. Atorvastatin Calcium [Lipitor 40 mg Tablet] 40 mg PO QHS 05/15/18 Furosemide [Lasix 20 mg Tablet] 20 mg PO QAM 05/15/18 Montelukast Sodium [Singulair 10 mg Tablet] 10 mg PO QPM 05/15/18 Nitroglycerin [Nitrostat 0.4 mg (1/150 Gr) Tabs 25/Bottle] 0.4 mg SL Q5MP PRN 05/15/18 Aspirin [Ecotrin 81 mg EC Tablet] 81 mg PO DAILY 05/06/19 Her Eliquis has been stopped. REVIEW OF SYSTEMS: CONSTITUTIONAL: Denies fever chills or rigors. Complains of generalized fatigue and weakness. HEAD: Denies headaches or head injury. EYES: No history of amblyopia diplopia. No history of amaurosis fugax. EARS: No severe in loss. No tinnitus. No vertigo. NOSE: No history of nosebleeds. No history of hayfever. MOUTH: There is no altered taste sensation. There is no ulcers in the mouth. There is no bleeding from the gums. THROAT: There is no odynophagia or dysphagia. There is no recurrent sore throats. SKIN: There is no skin rashes or skin lesions. There is no petechia or ecchymosis. NECK: There is no neck pain. There is no swelling in the neck. LUNGS: No history of wheezing no history of cough or sputum production. HEART: History of coronary artery disease no recent anginal symptoms. Denies PND orthopnea. No leg edema. History of hypertension present history of hyperlipidemia present. No history of recent palpitations or syncope. She has a past history of short lived past palpitations. She has a history of atrial fibrillation as mentioned earlier one episode, but the patient's corrected Jd vas 2 score is very high. Hence the patient was on Eliquis. But the patient has sustained a GI bleed with this. GI: History of AV malformation present. History of prior GI bleed present. Recent black stools with occult positivity by lab testing. There is no history of jaundice. No history of abdominal pain. No history of altered bowel movements. MUSCULOSKELETAL: History of arthritis present but no history of collagen vascular disease. ENDOCRINE: History of diabetes mellitus. No history of thyroid disease. No polydipsia polyuria. No severe to cold intolerance. COMMUNICATION ASSISTANT: No history of TIA CVA. No history of headaches migraines or seizures. PSYCHIATRIC: History of bipolar disorder in remission. No recent episodes of anxiety or depression. She has no suicidal ideation. There is no homicidal ideation. RENAL: History of chronic kidney disease stage III. History of urinary incontinence present. No history of UTI. Current Medications Acetaminophen (Tylenol 325 Mg Tablet) 325 mg PO Q4HP PRN PRN Reason: FEVER >101 Stop: 06/05/19 14:36 Acetazolamide (Diamox 250 Mg Tab) 250 mg PO DAILY [facility] Stop: 06/06/19 09:59 Albuterol/Ipratropium (Duoneb 3 Ml Ampul) 3 ml NEB RTQ8HP PRN PRN Reason: SHORTNESS OF BREATH Stop: 06/05/19 14:36 Dextrose (Dextrose Inj 50% Syringe (25 Gm/50 Ml)) 12.5 gm IV PRN PRN; Protocol PRN Reason: FOR BG 50-69 IN ALERT PATIENT Stop: 06/05/19 14:44 Dextrose (Dextrose Inj 50% Syringe (25 Gm/50 Ml)) 25 gm IV PRN PRN; Protocol PRN Reason: PER PROTOCOL Stop: 06/05/19 14:44 Diltiazem HCl (Cardizem Cd 240 Mg Capsule.Cr) 240 mg PO DAILY [facility] Stop: 06/06/19 09:59 Diphenhydramine HCl (Benadryl 25 Mg Capsule) 25 mg PO .BEFORE TRANSFUSION PRN PRN Reason: THIS MED IS NOT "PRN" Stop: 05/07/19 18:32 Last Admin: 05/06/19 21:59 Dose: 25 mg Documented by: Furosemide (Lasix 20 Mg Tablet) 20 mg PO .AFTER FIRST UNIT PRN PRN Reason: THIS MED IS NOT "PRN" Stop: 05/07/19 18:32 Glucagon (Glucagen Inj 1 Mg Vial) 1 mg IM PRN PRN; Protocol PRN Reason: Evaluate for BG < 70 Stop: 06/05/19 14:44 Glucose (Glutose 40% Gel 15 Gm Tube) 15 gm PO PRN PRN; Protocol PRN Reason: FOR BG 50-69 IN ALERT PATIENT Stop: 06/05/19 14:44 Glucose (Glutose 40% Gel 15 Gm Tube) 30 gm PO PRN PRN; Protocol PRN Reason: FOR BG < 50 IN ALERT PATIENT Stop: 06/05/19 14:44 Hydralazine HCl (Apresoline Inj/Pf 20 Mg/1 Ml Sdv) 10 mg IV Q3HP PRN PRN Reason: Give For Sbp > [150] Stop: 06/05/19 14:43 Hydralazine HCl (Apresoline 50 Mg Tablet) 50 mg PO Q8 TIMOTHY Stop: 06/05/19 21:59 Last Admin: 05/06/19 21:58 Dose: 50 mg Documented by: Sodium Chloride (Nacl 0.9% 250 Ml Iv Soln) 250 mls @ 0 mls/hr IV CONTINUOUS PRN PRN Reason: AFTER EACH UNIT Stop: 05/07/19 13:35 Sodium Chloride (Nacl 0.9% 1000 Ml Iv Soln) 1,000 mls @ 100 mls/hr IV CONTINUOUS PRN PRN Reason: THIS MED IS NOT "PRN" Stop: 06/05/19 14:36 Sodium Chloride (Nacl 0.9% 250 Ml Iv Soln) 250 mls @ 30 mls/hr IV .DURING TRANSFUSION PRN PRN Reason: THIS MED IS NOT "PRN" Stop: 05/07/19 18:32 Sodium Chloride (Nacl 0.9% 250 Ml Iv Soln) 250 mls @ 0 mls/hr IV CONTINUOUS PRN PRN Reason: AFTER EACH UNIT Stop: 12/31/19 18:32 Insulin Glargine (Lantus Insulin 100 Unit/1 Ml 10 Ml) 10 unit SUBCUT DAILY [facility] Stop: 06/06/19 09:59 Insulin Human Lispro (Humalog Insulin 100 Unit/1 Ml 3 Ml Vial) 0 - 12 unit SUBCUT Q6 TIMOTHY; Protocol Stop: 06/05/19 17:59 Losartan Potassium (Cozaar 50 Mg Tablet) 100 mg PO DAILY [facility] Stop: 06/06/19 09:59 Metoprolol Tartrate (Lopressor Inj/Pf 5 Mg/5 Ml Sdv) 2.5 mg IV Q6HP PRN PRN Reason: Give For Hr > [130] Stop: 06/05/19 14:43 Ondansetron HCl (Zofran Inj/Pf 4 Mg/2 Ml Sdv) 4 mg IV Q4HP PRN PRN Reason: FOR NAUSEA/VOMITING Stop: 06/05/19 14:36 Pantoprazole Sodium (Protonix [address] Tablet) 40 mg PO BID@0600,1700 [facility] Stop: 06/05/19 16:59 Last Admin: 05/06/19 17:45 Dose: 40 mg Documented by: Promethazine HCl (Phenergan Inj 25 Mg/1 Ml Vial) 6.25 mg IV Q4HP PRN PRN Reason: FOR PERSISTENT NAUSEA/VOMITING Stop: 06/05/19 14:36 Temazepam (Restoril 7.5 Mg Capsule) 7.5 mg PO HSP PRN PRN Reason: SLEEP OR INSOMNIA Stop: 05/13/19 14:36 PHYSICAL EXAMINATION: The patient is morbidly obese. In no acute distress. She appears to be tired. Selected Entries 05/06/19 05/06/19 17:30 18:01 Temperature 97.6 F Pulse Rate 63 Heart Rate ( 62 Monitors) Respiratory 18 Rate Blood Pressure 135/57 H O2 Sat by Pulse 97 Oximetry Oxygen Delivery Room Air Method ( includes room air) HEAD: Is atraumatic normocephalic. EYES: Pupils equal round regular reactive light accommodation. There is mild conjunctival pallor. There is no scleral icterus. EARS: Tympanic membranes are intact. External auditory canals are clear. NOSE: There is no deviated nasal septum. There is no inflammation of the nasal mucous membrane. MOUTH: Mucous membranes of the mouth is slightly dry. There is no ulcers. There is no bleeding from the gums. THROAT: There is no redness of the oropharynx. There is no exudates. SKIN: There is no skin rashes or skin lesions. There is no petechia or ecchymosis NECK: Is supple. There is no JVD. Carotids are equal there is no bruit. There is no lymphadenopathy. There is no goiter. There is no accessory muscle respiration use. Trachea central. LUNGS: Is clear to auscultation percussion without any rhonchi rales wheezing. HEART: S1-S2 is heard. S1 is of normal intensity. There is no S3 gallop. There is no S4 gallop. There is systolic murmur left sternal border and the apex there is no rub. ABDOMEN: Is obese. Nontender. There is no hepatosplenomegaly. Bowel sounds are well heard. EXTREMITIES: Femorals are deep. Femorals are diminished. There is no femoral bruits. Leg pulses are well felt. There is no pedal edema. There is no DVT or cellulitis. There is no cyanosis or clubbing. COMMUNICATION ASSISTANT: The patient is conscious awake oriented x3 with no focal deficits. PSYCHIATRIC: Patient judgment insight are intact her affect is normal. Her May 2018 echo in the office showed normal LV ejection fraction. Chest X-Ray 05/06/19 11:11 IMPRESSION: NO ACUTE RADIOGRAPHIC FINDING IN THE CHEST. Labs- Entire Visit 05/06/19 05/06/19 05/06/19 11:53 11:53 11:53 WBC 8.0 RBC 3.07 L Hgb 8.3 L Hct 27.3 L MCV 89 MCH 27.1 MCHC 30.5 L RDW 16.7 H Plt Count 238 Lymph % (Auto) 15.1 [place] % (Auto) 6.2 Eos % (Auto) 1.4 Baso % (Auto) 0.6 Absolute Neuts (auto) 6.1 Absolute Lymphs (auto) 1.2 Absolute Monos (auto) 0.5 Absolute Eos (auto) 0.1 Absolute Basos (auto) 0.0 Seg Neutrophils % 76.7 PT INR Sodium 140.0 Potassium 4.6 Chloride 101 Carbon Dioxide 27 Anion Gap 12 BUN 23 H Creatinine 1.36 H Est GFR ( Amer) 47 L Est GFR (MDRD) Non-Af 39 L Glucose 157 H POC Glucose Calcium 9.1 Total Bilirubin 0.5 Direct Bilirubin 0.2 Neonat Total Bilirubin Not Reportable Neonat Direct Bilirubin Not Reportable Neonat Indirect Bili Not Reportable AST 22 ALT 17 Alkaline Phosphatase 103 Troponin I < 0.012 Total Protein 6.8 Albumin 3.8 Urine Color Urine Appearance Urine pH Ur Specific [place] Urine Protein Urine Glucose (UA) Urine Ketones Urine Blood Urine Nitrite Urine Bilirubin Urine Urobilinogen Ur Leukocyte Esterase Urine WBC (Auto) Urine RBC (Auto) U Hyaline Cast (Auto) Urine Bacteria (Auto) Squamous Epi Cells Auto Urine Mucus (Auto) Urine Ascorbic Acid POC Stool Occult Blood Blood Type Blood Type Confirm Antibody Screen Crossmatch 05/06/19 05/06/19 05/06/19 11:53 11:53 12:00 WBC RBC Hgb Hct MCV MCH MCHC RDW Plt Count Lymph % (Auto) [place] % (Auto) Eos % (Auto) Baso % (Auto) Absolute Neuts (auto) Absolute Lymphs (auto) Absolute Monos (auto) Absolute Eos (auto) Absolute Basos (auto) Seg Neutrophils % PT 15.3 INR 1.20 Sodium Potassium Chloride Carbon Dioxide Anion Gap BUN Creatinine Est GFR ( Amer) Est GFR (MDRD) Non-Af Glucose POC Glucose Calcium Total Bilirubin Direct Bilirubin Neonat Total Bilirubin Neonat Direct Bilirubin Neonat Indirect Bili AST ALT Alkaline Phosphatase Troponin I Total Protein Albumin Urine Color YELLOW Urine Appearance SLIGHTLY-CLOUDY Urine pH 5.0 Ur Specific [place] 1.018 Urine Protein NEGATIVE Urine Glucose (UA) NEGATIVE Urine Ketones NEGATIVE Urine Blood NEGATIVE Urine Nitrite NEGATIVE Urine Bilirubin NEGATIVE Urine Urobilinogen NEGATIVE Ur Leukocyte Esterase NEGATIVE Urine WBC (Auto) 0 Urine RBC (Auto) 0 U Hyaline Cast (Auto) 6 Urine Bacteria (Auto) 1+ Squamous Epi Cells Auto 8 Urine Mucus (Auto) RARE Urine Ascorbic Acid NEGATIVE POC Stool Occult Blood Blood Type A POSITIVE Blood Type Confirm A POSITIVE Antibody Screen NEGATIVE Crossmatch See Detail 05/06/19 05/06/19 05/06/19 13:10 17:43 17:43 WBC 7.6 RBC 2.94 L Hgb 8.1 L Hct 25.8 L MCV 88 MCH 27.6 MCHC 31.4 L RDW 16.3 H Plt Count 190 Lymph % (Auto) 22.7 [place] % (Auto) 8.2 Eos % (Auto) 1.8 Baso % (Auto) 0.7 Absolute Neuts (auto) 5.1 Absolute Lymphs (auto) 1.7 Absolute Monos (auto) 0.6 Absolute Eos (auto) 0.1 Absolute Basos (auto) 0.1 Seg Neutrophils % 66.6 PT INR Sodium Potassium Chloride Carbon Dioxide Anion Gap BUN Creatinine Est GFR ( Amer) Est GFR (MDRD) Non-Af Glucose POC Glucose Calcium Total Bilirubin Direct Bilirubin Neonat Total Bilirubin Neonat Direct Bilirubin Neonat Indirect Bili AST ALT Alkaline Phosphatase Troponin I < 0.012 Total Protein Albumin Urine Color Urine Appearance Urine pH Ur Specific [place] Urine Protein Urine Glucose (UA) Urine Ketones Urine Blood Urine Nitrite Urine Bilirubin Urine Urobilinogen Ur Leukocyte Esterase Urine WBC (Auto) Urine RBC (Auto) U Hyaline Cast (Auto) Urine Bacteria (Auto) Squamous Epi Cells Auto Urine Mucus (Auto) Urine Ascorbic Acid POC Stool Occult Blood POSITIVE Blood Type Blood Type Confirm Antibody Screen Crossmatch 05/06/19 22:05 WBC RBC Hgb Hct MCV MCH MCHC RDW Plt Count Lymph % (Auto) [place] % (Auto) Eos % (Auto) Baso % (Auto) Absolute Neuts (auto) Absolute Lymphs (auto) Absolute Monos (auto) Absolute Eos (auto) Absolute Basos (auto) Seg Neutrophils % PT INR Sodium Potassium Chloride Carbon Dioxide Anion Gap BUN Creatinine Est GFR ( Amer) Est GFR (MDRD) Non-Af Glucose POC Glucose 121 H Calcium Total Bilirubin Direct Bilirubin Neonat Total Bilirubin Neonat Direct Bilirubin Neonat Indirect Bili AST ALT Alkaline Phosphatase Troponin I Total Protein Albumin Urine Color Urine Appearance Urine pH Ur Specific [place] Urine Protein Urine Glucose (UA) Urine Ketones Urine Blood Urine Nitrite Urine Bilirubin Urine Urobilinogen Ur Leukocyte Esterase Urine WBC (Auto) Urine RBC (Auto) U Hyaline Cast (Auto) Urine Bacteria (Auto) Squamous Epi Cells Auto Urine Mucus (Auto) Urine Ascorbic Acid POC Stool Occult Blood Blood Type Blood Type Confirm Antibody Screen Crossmatch EKG: Sinus rhythm. Left ventricular hypertrophy. Patient had a IV Lexiscan Cardiolite stress test in the office on 04/22/2019. This showed that there was no reversible ischemia and no scar or SD. IMPRESSION/RECOMMENDATION: 1. Symptomatic anemia secondary to GI bleed. Would recommend transfusion and keeping the hemoglobin 10 or above. 2. GI bleed exact source not identified as yet. Patient has a history of AV malformation of the GI tract. Hence she would be at high risk for recurrent bleeding. 3. Paroxysmal atrial fibrillation, with no recurrence. In view of the current situation which makes anticoagulation a higher risk category, would recommend that once the patient starts taking an by mouth would start the patient on sotalol to keep the patient in sinus rhythm. We will stop the patient's Kori mariana. We will see if the patient will be a candidate for watchman procedure. We will discuss this with widened cardiology. At present the patient slightly groggy from her sedation given for endoscopy, hence we will revisit this conversation again tomorrow. 4. Coronary artery disease. History of stent in the LAD and diagonal and history of moderate LAD lesion, with no angina. No evidence of acute coronary event this admission. 5. Hypertension: Blood pressure well controlled. 6. Diabetes mellitus: Continue current antidiabetic regimen and Accu-Cheks as per protocol. 7. Chronic kidney disease stage III. 8. History of bipolar disorder: Stable. 9. Morbid obesity. Medications reviewed. Medical regimen and management plan discussed with the attending physician. Medical decision making is of high complexity. 60 minutes spent as patient more than 50% time spent direct patient care. Will follow
[2019-05-06] MEDS ORDERED: INFLUENZA QUAD (6MOS+) 2019-20 VAC 0.5 ML SYR IM ONE (23:18)
[2019-05-07] MEDS: NORMAL SALINE 1000 ML 1,000 ML IV PRN ×3 (01:47→19:46)
[2019-05-07 02:32] LABS: HEMATOCRIT 28.8 % (36.0-47.0); HEMOGLOBIN 9.3 g/dL (12.0-15.5); MEAN CORPUSCULAR HEMOGLOBIN 28.4 pg (27.0-33.4); MEAN CORPUSCULAR HGB CONC 32.5 g/dL (32.0-36.0); MEAN CORPUSCULAR VOLUME 87 fl (80-97); PLATELET COUNT 191 10^3/uL (150-450); RED BLOOD COUNT 3.29 10^6/uL (3.72-5.28); RED CELL DISTRIBUTION WIDTH 16.1 % (11.5-14.0); WHITE BLOOD COUNT 6.6 10^3/uL (4.0-10.5)
[2019-05-07] MEDS: HYDRALAZINE HCL 50 MG TABLET PO SCH ×3 (05:22→23:12)
[2019-05-07] MEDS: PANTOPRAZOLE SODIUM 40 MG TABLET.DR PO SCH ×2 (05:23→17:07)
[2019-05-07 05:25] LABS: ABSOLUTE EOSINOPHILS # (AUTO) 0.2 10^3/uL (0.0-0.6); ABSOLUTE LYMPHOCYTES (AUTO) 1.6 10^3/uL (0.5-4.7); ABSOLUTE MONOCYTES (AUTO) 0.5 10^3/uL (0.1-1.4); ABSOLUTE NEUT (AUTO) 4.2 10^3/uL (1.7-8.2); BASOPHILS % (AUTO) 0.6 % (0-2); EOSINOPHILS % (AUTO) 2.4 % (0-6); HEMATOCRIT 30.5 % (36.0-47.0); HEMOGLOBIN 9.9 g/dL (12.0-15.5); LYMPHOCYTES % (AUTO) 24.6 % (13-45); MEAN CORPUSCULAR HEMOGLOBIN 28.5 pg (27.0-33.4); MEAN CORPUSCULAR HGB CONC 32.6 g/dL (32.0-36.0); MEAN CORPUSCULAR VOLUME 87 fl (80-97); MONOCYTES % (AUTO) 8.4 % (3-13); PLATELET COUNT 199 10^3/uL (150-450); RED BLOOD COUNT 3.49 10^6/uL (3.72-5.28); RED CELL DISTRIBUTION WIDTH 16.2 % (11.5-14.0); TOTAL CELLS COUNTED % (AUTO) 100 %; WHITE BLOOD COUNT 6.6 10^3/uL (4.0-10.5)
[2019-05-07 05:48] LABS: ALBUMIN 3.4 g/dL (3.5-5.0); ALKALINE PHOSPHATASE 93 U/L (38-126); ANION GAP 10 (5-19); ASPARTATE AMINO TRANSFERASE 23 U/L (14-36); BILIRUBIN,DIRECT 0.1 mg/dL (0.0-0.4); BILIRUBIN,TOTAL 1.4 mg/dL (0.2-1.3); BLOOD UREA NITROGEN 19 mg/dL (7-20); CALCIUM 8.9 mg/dL (8.4-10.2); CARBON DIOXIDE 27 mmol/L (22-30); CHLORIDE 103 mmol/L (98-107); GLUCOSE 129 mg/dL (75-110); POTASSIUM 4.3 mmol/L (3.6-5.0); TOTAL PROTEIN 5.9 g/dL (6.3-8.2)
[2019-05-07] MEDS: INSULIN LISPRO 100 UNIT/ML 3 ML VIAL SUBCUT SCH ×5 (06:17→23:22)
[2019-05-07] MEDS: LOSARTAN POTASSIUM 50 MG TABLET PO SCH (09:32)
[2019-05-07] MEDS: ACETAZOLAMIDE 250 MG TABLET PO SCH (09:32)
[2019-05-07] MEDS ORDERED: DILTIAZEM HCL 240 MG CAPSULE.CR PO SCH (10:00)
[2019-05-07] MEDS: INSULIN GLARGINE,HUM.REC.ANLOG 1,000 UNIT/10 ML VIAL SUBCUT SCH (10:41)
--- NOTE | 2019-05-07 15:24 | Progress Note ---
Provider Note Provider Note: CARDIOLOGY PROGRESS NOTE by Dr. Maria Eugenia Duong on 05/07/2019. All subjective: The patient states the fatigue is much improved. She has no shortness of breath at rest. There is no PND orthopnea. There is no chest pain or any anginal symptoms typical or atypical. She has no PND orthopnea or leg edema. There is no recurrence of atrial fibrillation. There is no TIA CVA symptoms. There is no ventricular arrhythmias seen. PHYSICAL EXAMINATION: The patient is morbidly obese. In no acute distress. Selected Entries 05/07/19 11:15 Temperature 98.4 F Temperature Oral Source Pulse Rate 86 Respiratory 21 H Rate Blood Pressure 127/61 H Blood Pressure 83 Mean BP Location Left Arm BP Position Supine O2 Sat by Pulse 100 Oximetry Oxygen Delivery Room Air Method HEAD: Is atraumatic normocephalic. EYES: Pupils equal round regular reactive light accommodation. There is mild conjunctival pallor. There is no scleral icterus. EARS: Tympanic membranes are intact. External auditory canals are clear. NOSE: There is no deviated nasal septum. There is no inflammation of the nasal mucous membrane. MOUTH: Mucous membranes of the mouth is slightly dry. There is no ulcers. There is no bleeding from the gums. THROAT: There is no redness of the oropharynx. There is no exudates. SKIN: There is no skin rashes or skin lesions. There is no petechia or ecchymosis NECK: Is supple. There is no JVD. Carotids are equal there is no bruit. There is no lymphad enopathy. There is no goiter. There is no accessory muscle respiration use. Trachea central. LUNGS: Is clear to auscultation percussion without any rhonchi rales wheezing. HEART: S1-S2 is heard. S1 is of normal intensity. There is no S3 gallop. There is no S4 gallop. There is systolic murmur left sternal border and the apex there is no rub. ABDOMEN: Is obese. Nontender. There is no hep atosplenomegaly. Bowel sounds are well heard. EXTREMITIES: Femorals are deep. Femorals are diminished. There is no femoral bruits. Leg pulses are well felt. There is no pedal edema. There is no DVT or cellulitis. There is no cyanosis or clubbing. AGRONOMY INTERNSHIP: The patient is conscious awake oriented x3 with no focal deficits. PSYCHIATRIC: Patient judgment insight are intact her affect is normal. Labs- All tests 24 hr 05/06/19 05/07/19 05/07/19 11:53 01:57 04:30 WBC 6.6 6.6 RBC 3.29 L 3.49 L Hgb 9.3 L 9.9 L Hct 28.8 L 30.5 L MCV 87 87 MCH 28.4 28.5 MCHC 32.5 32.6 RDW 16.1 H 16.2 H Plt Count 191 199 Lymph % (Auto) 24.6 [place] % (Auto) 8.4 Eos % (Auto) 2.4 Baso % (Auto) 0.6 Absolute Neuts (auto) 4.2 Absolute Lymphs (auto) 1.6 Absolute Monos (auto) 0.5 Absolute Eos (auto) 0.2 Absolute Basos (auto) 0.0 Seg Neutrophils % 64.0 Sodium Potassium Chloride Carbon Dioxide Anion Gap BUN Creatinine Est GFR ( Amer) Est GFR (MDRD) Non-Af Glucose POC Glucose Calcium Total Bilirubin Direct Bilirubin Neonat Total Bilirubin Neonat Direct Bilirubin Neonat Indirect Bili AST ALT Alkaline Phosphatase Total Protein Albumin Crossmatch See Detail 05/07/19 05/07/19 05/07/19 04:30 05:54 11:15 WBC RBC Hgb Hct MCV MCH MCHC RDW Plt Count Lymph % (Auto) [place] % (Auto) Eos % (Auto) Baso % (Auto) Absolute Neuts (auto) Absolute Lymphs (auto) Absolute Monos (auto) Absolute Eos (auto) Absolute Basos (auto) Seg Neutrophils % Sodium 139.6 Potassium 4.3 Chloride 103 Carbon Dioxide 27 Anion Gap 10 BUN 19 Creatinine 1.31 H Est GFR ( Amer) 49 L Est GFR (MDRD) Non-Af 40 L Glucose 129 H POC Glucose 153 H 270 H Calcium 8.9 Total Bilirubin 1.4 H Direct Bilirubin 0.1 Neonat Total Bilirubin Not Reportable Neonat Direct Bilirubin Not Reportable Neonat Indirect Bili Not Reportable AST 23 ALT 16 Alkaline Phosphatase 93 Total Protein 5.9 L Albumin 3.4 L Crossmatch 05/07/19 05/07/19 16:14 21:21 WBC RBC Hgb Hct MCV MCH MCHC RDW Plt Count Lymph % (Auto) [place] % (Auto) Eos % (Auto) Baso % (Auto) Absolute Neuts (auto) Absolute Lymphs (auto) Absolute Monos (auto) Absolute Eos (auto) Absolute Basos (auto) Seg Neutrophils % Sodium Potassium Chloride Carbon Dioxide Anion Gap BUN Creatinine Est GFR ( Amer) Est GFR (MDRD) Non-Af Glucose POC Glucose 180 H 133 H Calcium Total Bilirubin Direct Bilirubin Neonat Total Bilirubin Neonat Direct Bilirubin Neonat Indirect Bili AST ALT Alkaline Phosphatase Total Protein Albumin Crossmatch Chest X-Ray 05/06/19 11:11 IMPRESSION: NO ACUTE RADIOGRAPHIC FINDING IN THE CHEST. IMPRESSION/RECOMMENDATION: 1. Symptomatic anemia secondary to GI bleed. Would recommend transfusion and keeping the hemoglobin 10 or above. 2. GI bleed exact source not identified as yet. Patient has a history of AV malformation of the GI tract. Hence she would be at high risk for recurrent bleeding. 3. Paroxysmal atrial fibrillation, with no recurrence. In view of the current situation which makes anticoagulation a higher risk category, would recommend that once the patient starts taking an by mouth would start the patient on amiodarone to keep the patient in sinus rhythm. We will stop the patient's Cardizem CD. Amiodarone is preferred since the patient has renal failure and sotalol might not be right steroids. We will stop the patient's Eliquis. Discussed with Dr. Manjinder Medina, wildfire prevention specialist at [facility] who agrees that the patient will be a candidate for watchman procedure. We will set this up as an outpatient. 4. Coronary artery disease. History of stent in the LAD and diagonal and history of moderate LAD lesion, with no angina. No evidence of acute coronary event this admission. 5. Hypertension: Blood pressure well controlled. 6. Diabetes mellitus: Continue current antidiabetic regimen and Accu-Cheks as per protocol. 7. Chronic kidney disease stage III. 8. History of bipolar disorder: Stable. 9. Morbid obesity. Medications reviewed. Medications adjusted and added. Medical regimen and management plan discussed with attending physician on the case. Discussed with the patient also. Medical decision making is of high complexity. I have discussed the risks and benefits of amiodarone. Including this various side effects. We will get thyroid function tests and liver function tests. Later we will send the patient for full pulmonary function test with DLCO as a baseline.
[2019-05-08] MEDS: HYDRALAZINE HCL 50 MG TABLET PO SCH ×3 (05:26→21:50)
[2019-05-08] MEDS: PANTOPRAZOLE SODIUM 40 MG TABLET.DR PO SCH ×2 (05:26→17:17)
[2019-05-08 05:30] LABS: ABSOLUTE EOSINOPHILS # (AUTO) 0.2 10^3/uL (0.0-0.6); ABSOLUTE LYMPHOCYTES (AUTO) 1.6 10^3/uL (0.5-4.7); ABSOLUTE MONOCYTES (AUTO) 0.6 10^3/uL (0.1-1.4); ABSOLUTE NEUT (AUTO) 4.4 10^3/uL (1.7-8.2); BASOPHILS % (AUTO) 0.4 % (0-2); EOSINOPHILS % (AUTO) 2.9 % (0-6); HEMOGLOBIN 9.3 g/dL (12.0-15.5); LYMPHOCYTES % (AUTO) 23.5 % (13-45); MEAN CORPUSCULAR HEMOGLOBIN 28.1 pg (27.0-33.4); MEAN CORPUSCULAR HGB CONC 31.9 g/dL (32.0-36.0); MEAN CORPUSCULAR VOLUME 88 fl (80-97); MONOCYTES % (AUTO) 8.4 % (3-13); PLATELET COUNT 191 10^3/uL (150-450); RED CELL DISTRIBUTION WIDTH 16.3 % (11.5-14.0); SEGMENTED NEUTROPHILS % (AUTO) 64.8 % (42-78); TOTAL CELLS COUNTED % (AUTO) 100 %; WHITE BLOOD COUNT 6.8 10^3/uL (4.0-10.5)
[2019-05-08 05:42] LABS: ALBUMIN 3.2 g/dL (3.5-5.0); ALKALINE PHOSPHATASE 82 U/L (38-126); ANION GAP 10 (5-19); ASPARTATE AMINO TRANSFERASE 23 U/L (14-36); BILIRUBIN,DIRECT 0.1 mg/dL (0.0-0.4); BILIRUBIN,TOTAL 0.6 mg/dL (0.2-1.3); BLOOD UREA NITROGEN 21 mg/dL (7-20); CALCIUM 8.8 mg/dL (8.4-10.2); CARBON DIOXIDE 22 mmol/L (22-30); CHLORIDE 107 mmol/L (98-107); GLUCOSE 153 mg/dL (75-110); POTASSIUM 3.7 mmol/L (3.6-5.0); TOTAL PROTEIN 5.8 g/dL (6.3-8.2)
[2019-05-08 06:00] LABS: FREE T3 3.31 pg/mL (2.77-5.27); FREE T4 (FREE THYROXINE) 1.2 ng/dL (0.78-2.19)
[2019-05-08 06:13] LABS: THYROID STIMULATING HORMONE 2.33 uIU/mL (0.47-4.68)
[2019-05-08] MEDS: INSULIN LISPRO 100 UNIT/ML 3 ML VIAL SUBCUT SCH ×3 (06:17→17:17)
[2019-05-08] MEDS: NORMAL SALINE 1000 ML 1,000 ML IV PRN (06:53)
[2019-05-08] MEDS: LOSARTAN POTASSIUM 50 MG TABLET PO SCH (10:28)
[2019-05-08] MEDS: ACETAZOLAMIDE 250 MG TABLET PO SCH (10:28)
[2019-05-08] MEDS: AMIODARONE HCL 200 MG TABLET PO SCH ×2 (10:28→21:49)
[2019-05-08] MEDS: INSULIN GLARGINE,HUM.REC.ANLOG 1,000 UNIT/10 ML VIAL SUBCUT SCH (10:32)
--- NOTE | 2019-05-08 13:44 | PDOC PROGRESS REPORT ---
Subjective Progress Note for:: 05/08/19 Subjective:: TICO NG is a 69 year old female past medical history of CAD status post PCI x1 stent in 2006, hyperlipidemia, GERD, paroxysmal A. fib on Eliquis, hypertension, diabetes, AV malformation status post endoscopic cauterization was sent to ED from PCPs office for evaluation of dizziness and anemia. And has been having worsening dyspnea on exertion, associated with lightheadedness, presyncope, and occasional substernal pressure-like chest pain for the last 2 to 3 weeks worsening in the last 1 week. She had routine blood work on 04/29/2019 and her hemoglobin was 7.5 Bactrim. Today when she went to see Dr. Mckinnon her PCP she was sent to ED for further e valuation. Patient states that her last colonoscopy/endoscopy was somewhere between 6 months to 1 year ago and she had polyps removed at that point in time and also has had endoscopic cauterization of her AV malformation in the past. In ED she was noted to be tachypneic, very pale, with hemoglobin of 8.3, creatinine of 1.36 and guaiac positive stool. EKG was sinus rhythm and troponin was negative. ED physician had contacted Dr. Aldana from surgery and he has suggested for patient to be admitted made n.p.o. for possible endoscopy tomorrow. 05/07/2019. No acute events overnight. Patient is status post upper GI endoscopy with finding of severe distal esophagitis. Patient comfortably sitting in bed in no apparent distress. Denies any fever, chills, nausea, vomiting, diarrhea, constipation or any urinary symptoms. 05/08/2019. No acute events overnight. Denies any fever, chills, nausea, vomiting, diarrhea. Last bowel movement yesterday. Has not had any melena, hematochezia, hemoptysis or hematemesis. Reason For Visit: HISTORY OF A FIB,AT RISK OF GOING INTO A FIB RVR Physical Exam Vital Signs: Temp Pulse Resp BP Pulse Ox 97.4 F 86 18 139/59 H 100 05/08/19 12:41 05/08/19 12:41 05/08/19 12:41 05/08/19 12:41 05/08/19 12:41 Intake & Output 05/07/19 05/08/19 05/09/19 06:59 06:59 06:59 Intake Total 855 4241 480 Output Total 0 Balance 855 4241 480 Weight 117.3 kg 118.1 kg General appearance: PRESENT: no acute distress, morbidly obese, well-developed, well-nourished Head exam: PRESENT: atraumatic, normocephalic Respiratory exam: PRESENT: clear to auscultation giuliano. ABSENT: rales, rhonchi, wheezes Cardiovascular exam: PRESENT: RRR. ABSENT: diastolic murmur, rubs, systolic murmur Neurological exam: PRESENT: alert, awake, oriented to person, oriented to place, oriented to time, oriented to situation, CN II-XII grossly intact. ABSENT: motor sensory deficit Results Laboratory Results: 05/08/19 04:25 05/08/19 04:25 05/08/19 05/08/19 05/08/19 04:25 04:25 04:25 WBC 6.8 RBC 3.30 L Hgb 9.3 L Hct 29.0 L MCV 88 MCH 28.1 MCHC 31.9 L RDW 16.3 H Plt Count 191 Seg Neutrophils % 64.8 Sodium 139.2 Potassium 3.7 Chloride 107 Carbon Dioxide 22 Anion Gap 10 BUN 21 H Creatinine 1.42 H Est GFR ( Amer) 44 L Glucose 153 H Calcium 8.8 Total Bilirubin 0.6 AST 23 Alkaline Phosphatase 82 Total Protein 5.8 L Albumin 3.2 L TSH 2.33 Free T4 1.20 Free T3 pg/mL 3.31 05/06/19 05/06/19 11:53 17:43 Troponin I < 0.012 < 0.012 Impressions: Chest X-Ray 05/06/19 11:11 IMPRESSION: NO ACUTE RADIOGRAPHIC FINDING IN THE CHEST. Assessment and Plan - Diagnosis (1) Iron deficiency anemia secondary to blood loss (chronic) Is this a current diagnosis for this admission?: Yes Plan: H&H stable. Status post 2 PRBC transfusion on 05/06/2019. Likely due to chronic blood loss due to AV malformation and severe distal gastritis. Status post upper GI endoscopy on 05/06/2019. Findings were severe distal esophagitis no evidence of active bleeding. As per surgery note upper GI endoscopy not convincingly explain patient's blood loss anemia. Surgery has signed off at this point. No endoscopy surgery has signed off at this point. No colonoscopy planned. Continue monitoring H&H, supportive transfusion with goal of hemoglobin 9 to 10 g/dL given underlying history of CAD, iron supplementation. (2) Dyspnea on exertion Is this a current diagnosis for this admission?: Yes Plan: Most likely due to severe anemia. EKG no acute changes. Troponin WNL. SPO2 WNL on room air. Afebrile. Chest x-ray no acute changes. Admit to telemetry, supportive transfusions, monitor for fall, supplemental oxygen. (3) PAYAM (acute kidney injury) Is this a current diagnosis for this admission?: Yes Plan: Prerenal. Likely due to dehydration. Mild improvement. Cautious volume resuscitation, monitor volume status and electrolytes. Avoid nephrotoxic meds. If no improvement will consult nephrology. (4) CAD (coronary artery disease) Qualifiers: Coronary Disease-Associated Artery/Lesion type: [place] artery Is this a current diagnosis for this admission?: Yes Plan: History of CAD. Status post PCI x1 stent 2006. Complaining of intermittent chest pain for the last 2 to 3 weeks. Denies any active chest pain at this admission. EKG no acute changes. Troponin negative. Patient had nuclear stress test as outpatient last month. As per Dr. Day it was negative. Continue telemetry, hold antiplatelets, restart beta-blockers, NAYANA, statins. PRN nitro and morphine. (5) Hx of arteriovenous malformation (AVM) Is this a current diagnosis for this admission?: Yes Plan: Likely as of chronic iron deficiency anemia. As per patient she has had endoscopic cauterization in the past. Continue telemetry, monitor H&H, surgery consulted. Status post upper GI endoscopy on 05/06/2019. Findings were severe distal esophagitis no evidence of active bleeding. As per surgery note upper GI endoscopy not convincingly explain patient's blood loss anemia. (6) Paroxysmal atrial fibrillation Is this a current diagnosis for this admission?: Yes Plan: History of paroxysmal A. fib. Currently sinus rhythm. Cardizem has been switched to amiodarone by cardiology. Clemente is also been DC'd cardiology for risk of bleeding. Continue telemetry. Continue amiodarone. PRN metoprolol. Cardiology consulted. Recommendations noted. Please refer to note. (7) Hyperlipidemia Is this a current diagnosis for this admission?: Yes Plan: Takes a statin at home. Restart home meds. (8) Morbid obesity with BMI of 45.0-49.9, adult Is this a current diagnosis for this admission?: Yes Plan: BMI 45.6. Diet and lifestyle modification recommended. Patient is a candidate for bariatric intervention.
--- NOTE | 2019-05-08 18:10 | Progress Note ---
Provider Note Provider Note: CARDIOLOGY PROGRESS NOTE by Dr. Maria Eugenia Duong on 05/08/19. OBJECTIVE: Patient remains in sinus rhythm. Is no further GI bleed. She denies any chest pain or discomfort. There is no PND orthopnea. There is no ventricular arrhythmia seen on the monitor. The patient is off Cardizem and has been started on amiodarone. She has no TIA CVA symptoms. PHYSICAL EXAMINATION: The patient is morbidly obese. In no acute distress. Selected Entries 05/08/19 16:59 Temperature 97.5 F Temperature Oral Source Pulse Rate 78 Respiratory 18 Rate Blood Pressure 148/74 H Blood Pressure 98 Mean BP Location Left Arm BP Position Sitting O2 Sat by Pulse 100 Oximetry Oxygen Delivery Room Air Method HEAD: Is atraumatic normocephalic. EYES: Pupils equal round regular reactive light accommodation. There is mild conjunctival pallor. There is no scleral icterus. EARS: Tympanic membranes are intact. External auditory canals are clear. NOSE: There is no deviated nasal septum. There is no inflammation of the nasal mucous membrane. MOUTH: Mucous membranes of the mouth is slightly dry. There is no ulcers. There is no bleeding from the gums. THROAT: There is no redness of the oropharynx. There is no exudates. SKIN: There is no skin rashes or skin lesions. There is no petechia or ecchymosis NECK: Is supple. There is no JVD. Carotids are equal there is no bruit. There is no lymphadenopathy. There is no goiter. There is no accessory muscle respiration use. Trachea central. LUNGS: Is clear to auscultation percussion without any rhonchi rales wheezing. HEART: S1-S2 is heard. S1 is of normal intensity. There is no S3 gallop. There is no S4 gallop. There is systolic murmur left sternal border and the apex there is no rub. ABDOMEN: Is obese. Nontender. There is no hepatosplenomegaly. Bowel sounds are well heard. EXTREMITIES: Femorals are deep. Femorals are diminished. There is no femoral bruits. Leg pulses are well felt. There is no pedal edema. There is no DVT or cellulitis. There is no cyanosis or clubbing. 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 PSYCHIATRIC: Patient judgment insight are intact her affect is normal. Labs- All tests 24 hr 05/07/19 05/08/19 05/08/19 21:21 04:25 04:25 WBC RBC Hgb Hct MCV MCH MCHC RDW Plt Count Lymph % (Auto) Harper % (Auto) Eos % (Auto) Baso % (Auto) Absolute Neuts (auto) Absolute Lymphs (auto) Absolute Monos (auto) Absolute Eos (auto) Absolute Basos (auto) Seg Neutrophils % Sodium 139.2 Potassium 3.7 Chloride 107 Carbon Dioxide 22 Anion Gap 10 BUN 21 H Creatinine 1.42 H Est GFR ( Amer) 44 L Est GFR (MDRD) Non-Af 37 L Glucose 153 H POC Glucose 133 H Calcium 8.8 Total Bilirubin 0.6 Direct Bilirubin 0.1 Neonat Total Bilirubin Not Reportable Neonat Direct Bilirubin Not Reportable Neonat Indirect Bili Not Reportable AST 23 ALT 16 Alkaline Phosphatase 82 Total Protein 5.8 L Albumin 3.2 L TSH 2.33 Free T4 1.20 Free T3 pg/mL 3.31 05/08/19 05/08/19 05/08/19 04:25 06:00 12:39 WBC 6.8 RBC 3.30 L Hgb 9.3 L Hct 29.0 L MCV 88 MCH 28.1 MCHC 31.9 L RDW 16.3 H Plt Count 191 Lymph % (Auto) 23.5 Harper % (Auto) 8.4 Eos % (Auto) 2.9 Baso % (Auto) 0.4 Absolute Neuts (auto) 4.4 Absolute Lymphs (auto) 1.6 Absolute Monos (auto) 0.6 Absolute Eos (auto) 0.2 Absolute Basos (auto) 0.0 Seg Neutrophils % 64.8 Sodium Potassium Chloride Carbon Dioxide Anion Gap BUN Creatinine Est GFR ( Amer) Est GFR (MDRD) Non-Af Glucose POC Glucose 162 H 245 H Calcium Total Bilirubin Direct Bilirubin Neonat Total Bilirubin Neonat Direct Bilirubin Neonat Indirect Bili AST ALT Alkaline Phosphatase Total Protein Albumin TSH Free T4 Free T3 pg/mL 05/08/19 17:02 WBC RBC Hgb Hct MCV MCH MCHC RDW Plt Count Lymph % (Auto) Harper % (Auto) Eos % (Auto) Baso % (Auto) Absolute Neuts (auto) Absolute Lymphs (auto) Absolute Monos (auto) Absolute Eos (auto) Absolute Basos (auto) Seg Neutrophils % Sodium Potassium Chloride Carbon Dioxide Anion Gap BUN Creatinine Est GFR ( Amer) Est GFR (MDRD) Non-Af Glucose POC Glucose 172 H Calcium Total Bilirubin Direct Bilirubin Neonat Total Bilirubin Neonat Direct Bilirubin Neonat Indirect Bili AST ALT Alkaline Phosphatase Total Protein Albumin TSH Free T4 Free T3 pg/mL He recently had a stress test in the office which was negative for ischemia or scar. She also on number [phone] at an echocardiogram which showed normal LV ejection fraction. No severe regurgitant lesions.] Systolic pressure was 31 mmHg. Left atrium was mildly enlarged. Echo and stress test findings were discussed with the patient. Chest X-Ray 05/06/19 11:11 IMPRESSION: NO ACUTE RADIOGRAPHIC FINDING IN THE CHEST. IMPRESSION/RECOMMENDATION: 1. Symptomatic anemia secondary to GI bleed. Would recommend transfusion and keeping the hemoglobin 10 or above. 2. GI bleed exact source not identified as yet. Patient has a history of AV malformation of the GI tract. Hence she would be at high risk for recurrent bleeding. 3. Paroxysmal atrial fibrillation, with no recurrence. In view of the current situation which makes anticoagulation a higher risk category, would recommend that once the patient starts taking an by mouth would start the patient on amiodarone to keep the patient in sinus rhythm. We will stop the patient's Cardizem CD. Amiodarone is preferred since the patient has renal failure and sotalol might not be right steroids. We will stop the patient's Eliquis. D iscussed with Dr. Manjinder eMdina, assistant auto center manager at [facility] who agrees that the patient will be a candidate for watchman procedure. We will set this up as an outpatient. The patient's liver function tests and thyroid function tests are within normal limits. 4. Coronary artery disease. History of stent in the LAD and diagonal and history of moderate LAD lesion, with no angina. No evidence of acute coronary event this admission. 5. Hypertension: Blood pressure well controlled. 6. Diabetes mellitus: Continue current antidiabetic regimen and Accu-Cheks as per protocol. 7. Chronic kidney disease stage III. 8. History of bipolar disorder: Stable. 9. Morbid obesity. Occasions reviewed. Medical management and management and medical regimen discussed with the attending physician on the case. Medical decision making is of moderate complexity. 40 minutes spent on the patient with more than 50% of time spent in direct patient care. If patient is stable can be discharged home tomorrow.
[2019-05-09] MEDS: PANTOPRAZOLE SODIUM 40 MG TABLET.DR PO SCH ×2 (05:24→17:03)
[2019-05-09] MEDS: HYDRALAZINE HCL 50 MG TABLET PO SCH ×3 (05:24→23:13)
--- NOTE | 2019-05-09 07:43 | EKG REPORT ---
SEVERITY:- BORDERLINE ECG - SINUS RHYTHM BORDERLINE LEFT AXIS DEVIATION NONSPECIFIC INFERIOR ST-T CHANGES , UNCHANGED. : Confirmed by: Francisco Monsalve MD 09-May-2019 07:42:08
[2019-05-09] MEDS: INSULIN LISPRO 100 UNIT/ML 3 ML VIAL SUBCUT SCH ×4 (07:56→23:12)
[2019-05-09 08:21] LABS: ABSOLUTE EOSINOPHILS # (AUTO) 0.2 10^3/uL (0.0-0.6); ABSOLUTE LYMPHOCYTES (AUTO) 1.2 10^3/uL (0.5-4.7); ABSOLUTE MONOCYTES (AUTO) 0.4 10^3/uL (0.1-1.4); ABSOLUTE NEUT (AUTO) 4.3 10^3/uL (1.7-8.2); BASOPHILS % (AUTO) 0.3 % (0-2); HEMATOCRIT 30.2 % (36.0-47.0); HEMOGLOBIN 9.6 g/dL (12.0-15.5); LYMPHOCYTES % (AUTO) 19.5 % (13-45); MEAN CORPUSCULAR HGB CONC 31.8 g/dL (32.0-36.0); MEAN CORPUSCULAR VOLUME 88 fl (80-97); MONOCYTES % (AUTO) 7.2 % (3-13); PLATELET COUNT 196 10^3/uL (150-450); RED BLOOD COUNT 3.44 10^6/uL (3.72-5.28); TOTAL CELLS COUNTED % (AUTO) 100 %; WHITE BLOOD COUNT 6.1 10^3/uL (4.0-10.5)
[2019-05-09 08:47] LABS: ANION GAP 11 (5-19); BLOOD UREA NITROGEN 20 mg/dL (7-20); CALCIUM 9.3 mg/dL (8.4-10.2); CARBON DIOXIDE 18 mmol/L (22-30); CHLORIDE 111 mmol/L (98-107); GLUCOSE 153 mg/dL (75-110); POTASSIUM 4.3 mmol/L (3.6-5.0)
--- NOTE | 2019-05-09 09:15 | PDOC PROGRESS REPORT ---
Subjective Progress Note for:: 05/09/19 Subjective:: TICO NG is a 69 year old female past medical history of CAD status post PCI x1 stent in 2006, hyperlipidemia, GERD, paroxysmal A. fib on Eliquis, hypertension, diabetes, AV malformation status post endoscopic cauterization was sent to ED from PCPs office for evaluation of dizziness and anemia. And has been having worsening dyspnea on exertion, associated with lightheadedness, presyncope, and occasional substernal pressure-like chest pain for the last 2 to 3 weeks worsening in the last 1 week. She had routine blood work on 04/29/2019 and her hemoglobin was 7.5 Bactrim. Today when she went to see Dr. Mckinnon her PCP she was sent to ED for further e valuation. Patient states that her last colonoscopy/endoscopy was somewhere between 6 months to 1 year ago and she had polyps removed at that point in time and also has had endoscopic cauterization of her AV malformation in the past. In ED she was noted to be tachypneic, very pale, with hemoglobin of 8.3, creatinine of 1.36 and guaiac positive stool. EKG was sinus rhythm and troponin was negative. ED physician had contacted Dr. Aldana from surgery and he has suggested for patient to be admitted made n.p.o. for possible endoscopy tomorrow. 05/07/2019. No acute events overnight. Patient is status post upper GI endoscopy with finding of severe distal esophagitis. Patient comfortably sitting in bed in no apparent distress. Denies any fever, chills, nausea, vomiting, diarrhea, constipation or any urinary symptoms. 05/08/2019. No acute events overnight. Denies any fever, chills, nausea, vomiting, diarrhea. Last bowel movement yesterday. Has not had any melena, hematochezia, hemoptysis or hematemesis. 05/09/2018. No acute events overnight. H&H stable. Patient is ambulatory with the help of PT. P.o. tolerant. Denies any fever, chills, nausea, vomiting, diarrhea, constipation or any urinary symptoms. Patient could be potentially discharged home however her renal function is worsening. Reason For Visit: HISTORY OF A FIB,AT RISK OF GOING INTO A FIB RVR Physical Exam Vital Signs: Temp Pulse Resp BP Pulse Ox 98.2 F 100 20 148/78 H 100 05/09/19 07:54 05/09/19 07:54 05/09/19 07:54 05/09/19 07:54 05/09/19 07:54 Intake & Output 05/08/19 05/09/19 05/10/19 06:59 06:59 06:59 Intake Total 4241 2020 Output Total 0 1350 Balance 4241 670 Weight 118.1 kg 118.7 kg General appearance: PRESENT: morbidly obese Head exam: PRESENT: atraumatic, normocephalic Respiratory exam: PRESENT: clear to auscultation giuliano. ABSENT: rales, rhonchi, wheezes Cardiovascular exam: PRESENT: RRR. ABSENT: diastolic murmur, rubs, systolic murmur GI/Abdominal exam: PRESENT: normal bowel sounds, soft. ABSENT: distended, guarding, mass, organolmegaly, rebound, tenderness Neurological exam: PRESENT: alert, awake, oriented to person, oriented to place, oriented to time, oriented to situation, CN II-XII grossly intact. ABSENT: motor sensory deficit Results Laboratory Results: 05/09/19 07:27 05/09/19 07:27 05/09/19 05/09/19 07:27 07:27 WBC 6.1 RBC 3.44 L Hgb 9.6 L Hct 30.2 L MCV 88 MCH 28.0 MCHC 31.8 L RDW 16.0 H Plt Count 196 Seg Neutrophils % 70.0 Sodium 139.8 Potassium 4.3 Chloride 111 H Carbon Dioxide 18 L Anion Gap 11 BUN 20 Creatinine 1.61 H Est GFR ( Amer) 38 L Glucose 153 H Calcium 9.3 05/06/19 05/06/19 11:53 17:43 Troponin I < 0.012 < 0.012 Impressions: Chest X-Ray 05/06/19 11:11 IMPRESSION: NO ACUTE RADIOGRAPHIC FINDING IN THE CHEST. Assessment and Plan - Diagnosis (1) PAYAM (acute kidney injury) Is this a current diagnosis for this admission?: Yes Plan: Prerenal. Worsening renal function. Likely due to dehydration. Initially started on cautious volume resuscitation. Had to DC fluids in anticipation for discharge. However renal function is worsening. Patient is still making adequate amount of urine. Monitor volume status, monitor electrolytes and replace as needed. Avoid nephrotoxic meds. Nephrology consulted. Follow-up recommendation. Note: On admission patient given a list of her home meds from below which included acetazolamide but she could not give me any reason why and by whom it was prescribed. It was resumed as it was listed on her home meds. DC Diamox. (2) Iron deficiency anemia secondary to blood loss (chronic) Is this a current diagnosis for this admission?: Yes Plan: H&H stable. Status post 2 PRBC transfusion on 05/06/2019. Likely due to chronic blood loss due to AV malformation and severe distal gastritis. Status post upper GI endoscopy on 05/06/2019. Findings were severe distal esophagitis no evidence of active bleeding. As per surgery note upper GI endoscopy not convincingly explain patient's blood loss anemia. Surgery has signed off at this point. No endoscopy surgery has signed off at this point. No colonoscopy planned. Continue monitoring H&H, supportive transfusion with goal of hemoglobin 9 to 10 g/dL given underlying history of CAD, iron supplementation. (3) Dyspnea on exertion Is this a current diagnosis for this admission?: Yes Plan: Improving. Most likely due to severe anemia. EKG no acute changes. Troponin WNL. SPO2 WNL on room air. Afebrile. Chest x-ray no acute changes. Continue supportive transfusions, monitor for fall, supplemental oxygen and P T/OT. (4) CAD (coronary artery disease) Qualifiers: Coronary Disease-Associated Artery/Lesion type: [place] artery Is this a current diagnosis for this admission?: Yes Plan: History of CAD. Status post PCI x1 stent 2006. Complaining of intermittent chest pain for the last 2 to 3 weeks. Denies any active chest pain at this admission. EKG no acute changes. Troponin negative. Patient had nuclear stress test as outpatient last month. As per Dr. Day it was negative. Continue telemetry, hold antiplatelets, restart beta-blockers, NAYANA, statins. PRN nitro and morphine. (5) Hx of arteriovenous malformation (AVM) Is this a current diagnosis for this admission?: Yes Plan: Likely as of chronic iron deficiency anemia. As per patient she has had endoscopic cauterization in the past. Continue telemetry, monitor H&H, surgery consulted. Status post upper GI endoscopy on 05/06/2019. Findings were severe distal eso phagitis no evidence of active bleeding. As per surgery note upper GI endoscopy not convincingly explain patient's blood loss anemia. (6) Paroxysmal atrial fibrillation Is this a current diagnosis for this admission?: Yes Plan: History of paroxysmal A. fib. Currently sinus rhythm. Cardizem has been switched to amiodarone by cardiology. Clemente is also been DC'd cardiology for risk of bleeding. Continue telemetry. Continue amiodarone. PRN metoprolol. Cardiology consulted. Recommendations noted. Please refer to note. (7) Hyperlipidemia Is this a current diagnosis for this admission?: Yes Plan: Takes a statin at home. Restart home meds. (8) Morbid obesity with BMI of 45.0-49.9, adult Is this a current diagnosis for this admission?: Yes Plan: BMI 45.6. Diet and lifestyle modification recommended. Patient is a candidate for bariatric intervention.
[2019-05-09] MEDS: AMIODARONE HCL 200 MG TABLET PO SCH ×2 (09:40→23:13)
[2019-05-09] MEDS: LOSARTAN POTASSIUM 50 MG TABLET PO SCH (09:40)
[2019-05-09] MEDS: ACETAZOLAMIDE 250 MG TABLET PO SCH (09:41)
[2019-05-09] MEDS: INSULIN GLARGINE,HUM.REC.ANLOG 1,000 UNIT/10 ML VIAL SUBCUT SCH (09:41)
[2019-05-09] MEDS ORDERED: 1/2 NORMAL SALINE 1,000 ML IV PRN (11:29)
--- NOTE | 2019-05-09 11:49 | PDOC CONSULTATION ---
Consultation Consult Date: 05/09/19 Provider Consulted: Jessica DE ANDA Consult reason:: PAYAM on CKD History of Present Illness Admission Date/PCP: 05/06/19 14:06 MEKA MCKINNON MD History of Present Illness: TICO NG is a 69 year old female with a past medical history of Diabetes mellitus, hypertension CAD status post PCI x1 stent in 2006, hyperlipidemia, GERD, paroxysmal A. fib on Eliquis, history of cervical/uterine cancer, history of AV malformation status post endoscopic cauterization was sent to ED Dr Mckinnon, PCP office for evaluation of Progress to exertional dyspnea of approximately a week to 10 days duration followed by recent onset of orthostasis.She denied any history of abdominal pains or active GI bleeds.Evaluation in the ER revealed that her hemoglobin was 8.3 creatinine 1.3 and she had guaiac positive stool. She has been admitted for further evaluation. She has had 2 blood transfusions. She has underwent an upper GI endoscopy which showed stable esophageal varix, small hiatal hernia and severe diffuse distal gastritis. Currently she feels good. However her renal numbers were worsening and hence this consult.Admission creatinine was 1.3 as compared to baseline creatinine of 1-1.2. Today's creatinine was rising up to 1.6.She denies any urinary complaints of dysuria or difficulty to urinate. She denies any complaints of abdominal pains, chest pain or shortness of breath. Labs and medications were reviewed. Past Medical History Cardiac Medical History: Reports: Atrial Fibrillation, Coronary Artery Disease - stent few years ago, Heart Murmur - states SBE prophylaxis required, Hyperlipidemia Denies: Myocardial Infarction, Peripheral Vascular Disease, Pulmonary Embolism Pulmonary Medical History: Reports: Bronchitis - frequency has decreased, no l onger exposed to 2nd smoke Denies: Asthma, Chronic Obstructive Pulmonary Disease (COPD), Pneumonia, Respiratory Failure, Sleep Apnea, Tuberculosis Neurological Medical History: Denies: Seizures Endocrine Medical History: Reports: Diabetes Mellitus Type 2 Denies: Hyperthyroidism, Hypothyroidism Renal/ Medical History: Reports: Chronic Kidney Disease Stage III Denies: Benign Prostatic Hyperplasia Malignancy Medical History: Reports: Cervical Cancer Denies: Breast Cancer, Leukemia, Lung Cancer, Ovarian Cancer GI Medical History: Reports: Gastroesophageal Reflux Disease - meds x 4 years Denies: Crohn's Disease, Hiatal Hernia Musculoskeltal Medical History: Reports: Arthritis Denies: Fibromyalgia, Rheumatoid Arthritis, Systemic Lupus Erythematosus Psychiatric Medical History: Denies: Bipolar Disorder, Dementia, Depression, Post Traumatic Stress Disorder Infectious Medical History: Denies: HIV Hematology Medical History: Reports Anemia Past Surgical History Past Surgical History: Reports: Cardiac Catheterization - 1 stent, Cholecystectomy, Hysterectomy, Orthopedic Surgery - bilateral knee replacement, shoulder replacement Denies: Appendectomy, Section, Colostomy, Coronary Artery Bypass Graft, Gastric Bypass Surgery, Herniorrhaphy, Mastectomy, Pacemaker, Tonsillectomy, Tubal Ligation Social History Smoking Status: Never Smoker Electronic Cigarette use?: No Frequency of Alcohol Use: None Hx Recreational Drug Use: No Drugs: Cocaine Hx Prescription Drug Abuse: No - Advance Directive Resuscitation Status: Full Code Family History Parental Family History Reviewed: Yes - Negative for ESRD Children Family History Reviewed: No Sibling(s) Family History Reviewed.: No Medication/Allergy Home Medications: Atorvastatin Calcium [Lipitor 40 mg Tablet] 40 mg PO QHS 05/15/18 Furosemide [Lasix 20 mg Tablet] 20 mg PO QAM 05/15/18 Montelukast Sodium [Singulair 10 mg Tablet] 10 mg PO QPM 05/15/18 Nitroglycerin [Nitrostat 0.4 mg (1/150 Gr) Tabs 25/Bottle] 0.4 mg SL Q5MP PRN 05/15/18 Apixaban [Eliquis 5 mg Tablet] 5 mg PO BID #0 05/20/18 Cyanocobalamin (Vitamin B-12) [Vitamin B-12 1000 mcg Tablet] 1,000 mcg PO DAILY #90 tablet 05/20/18 Diltiazem HCl [Cardizem Cd 180 mg Capsule] 180 mg PO DAILY #90 capsule.cr 05/20/18 Hum Insulin NPH/Reg Insulin Hm [Insulin 70-30 (NPH/Reg) 100 unit/mL] 30 unit SUBCUT BID #20 ml 05/20/18 Losartan Potassium [Cozaar 100 mg Tablet] 100 mg PO QAM #90 05/20/18 Aspirin [Ecotrin 81 mg EC Tablet] 81 mg PO DAILY 05/06/19 Allergies/Adverse Reactions: codeine [Codeine] Allergy (Intermediate, Verified 05/15/18 10:17) GI upset Review of Systems Constitutional: ABSENT: anorexia, chills, fatigue, fever(s), headache(s), night sweats, weakness Nose, Mouth, and Throat: ABSENT: mouth pain, sore throat Cardiovascular: PRESENT: dyspnea on exertion. ABSENT: chest pain, edema, orthropnea, palpitations Respiratory: PRESENT: dyspnea. ABSENT: cough, hemoptysis Gastrointestinal: ABSENT: abdominal pain, coffee ground emesis, constipation, diarrhea, dysphagia, heartburn, hematemesis, hematochezia Genitourinary: ABSENT: dysuria, hematuria Musculoskeletal: ABSENT: deformity, joint swelling Integumentary: ABSENT: erythema, lesions, pruritus Neurological: ABSENT: abnormal gait, abnormal speech, confusion, frequent falls, lack of coordination Hematologic/Lymphatic: ABSENT: easy bleeding, easy bruising, lymphadenopathy Physical Exam Vital Signs: Temp Pulse Resp BP Pulse Ox 98.2 F 81 14 148/78 H 99 05/09/19 07:54 05/09/19 09:59 05/09/19 09:59 05/09/19 07:54 05/09/19 09:59 Intake & Output 05/08/19 05/09/19 05/10/19 06:59 06:59 06:59 Intake Total 4241 2020 Output Total 0 1350 Balance 4241 670 Weight 118.1 kg 118.7 kg General appearance: PRESENT: no acute distress Eye exam: PRESENT: EOMI, PERRLA. ABSENT: scleral icterus Mouth exam: PRESENT: moist, neck supple Neck exam: ABSENT: lymphadenopathy, meningismus, tenderness, thyromegaly, tracheal deviation Respiratory exam: PRESENT: clear to auscultation giuliano. ABSENT: crackles Cardiovascular exam: PRESENT: +S1, +S2 GI/Abdominal exam: PRESENT: normal bowel sounds, soft. ABSENT: organomegaly, tenderness Extremities exam: ABSENT: pedal edema Neurological exam: PRESENT: alert, awake, oriented to person, oriented to place Psychiatric exam: PRESENT: appropriate affect Skin exam: ABSENT: cyanosis, erythema, mottled, rash Results Laboratory Results: 05/09/19 07:27 05/09/19 07:27 05/09/19 05/09/19 07:27 07:27 WBC 6.1 RBC 3.44 L Hgb 9.6 L Hct 30.2 L MCV 88 MCH 28.0 MCHC 31.8 L RDW 16.0 H Plt Count 196 Seg Neutrophils % 70.0 Sodium 139.8 Potassium 4.3 Chloride 111 H Carbon Dioxide 18 L Anion Gap 11 BUN 20 Creatinine 1.61 H Est GFR ( Amer) 38 L Glucose 153 H Calcium 9.3 05/06/19 05/06/19 11:53 17:43 Troponin I < 0.012 < 0.012 Impressions: Chest X-Ray 05/06/19 11:11 IMPRESSION: NO ACUTE RADIOGRAPHIC FINDING IN THE CHEST. Assessment & Plan - Diagnosis (1) PAYAM (acute kidney injury) Is this a current diagnosis for this admission?: Yes Plan: Patient clinically on the dry side. Besides that she is on Diamox for reasons that are not very sure. She is also acidotic. DC Diamox. Start gentle hydration. Monitor. (2) GI bleed Qualifiers: GI bleed type/associated pathology: unspecified gastrointestinal hemorrhage type Qualified Code(s): K92.2 - Gastrointestinal hemorrhage, unspecified Plan: History of AVM M. EGD shows diffuse gastritis. Status post transfusion. Pre sently stable. Patient taken off Eliquis and being planned for elective watchman procedure by Dr. Day/cardiology. (3) Hx of arteriovenous malformation (AVM) Is this a current diagnosis for this admission?: Yes Plan: As mentioned earlier.Given her chronic anemia and the propensity for acute on chronic bleeds is ideal that she is not placed on chronic anticoagulation. (4) Essential (primary) hypertension Plan: Uncontrolled. Monitor. (5) Paroxysmal atrial fibrillation Is this a current diagnosis for this admission?: Yes Plan: Presently in sinus rate controlled. Patient been taken off anticoagulation because of her recent GI bleed. Being planned for elective watchman procedure. 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 (7) Metabolic acidosis Plan: DC Diamox. Is contraindicated.
--- NOTE | 2019-05-09 19:12 | Progress Note ---
Provider Note Provider Note: CARDIOLOGY PROGRESS NOTE by Dr. Maria Eugenia Day on 05/09/2019. OBJECTIVE: The patient denies any chest pain or discomfort. There is no further ongoing GI bleed. The patient has no abdominal pain. There is no nausea vomiting. There is no recurrence of atrial fibrillation. There is no ventricular arrhythmia seen. In view of creatinine going up to 1.6 from admission creatinine of 1.3 nephrology has been consulted. Nephrology is advised to discontinue the Diamox, and gentle hydration. The patient should be able to tolerate hydration since she has a normal LV ejection fraction. The patient denies any shortness of breath. There is no PND orthopnea. There is no TIA CVA symptoms. Note that the patient is off Eliquis. PHYSICAL EXAMINATION: The patient is morbidly obese. In no acute distress Selected Entries 05/09/19 11:40 Temperature 98.2 F Temperature Oral Source Pulse Rate 74 Respiratory 20 Rate Blood Pressure 138/75 H Blood Pressure 96 Mean BP Location Left Arm BP Position Sitting O2 Sat by Pulse 100 Oximetry Oxygen Delivery Room Air Method HEAD: Is atraumatic normocephalic. EYES: Pupils equal round regular reactive light accommodation. There is mild conjunctival pallor. There is no scleral icterus. EARS: Tympanic membranes are intact. External auditory canals are clear. NOSE: There is no deviated nasal septum. There is no inflammation of the nasal mucous membrane. MOUTH: Mucous membranes of the mouth is slightly dry. There is no ulcers. There is no bleeding from the gums. THROAT: There is no redness of the oropharynx. There is no exudates. SKIN: There is no skin rashes or skin lesions. There is no petechia or ecchymosis NECK: Is supple. There is no JVD. Carotids are equal there is no bruit. There is no lymphadenopathy. There is no goiter. There is no accessory muscle respiration use. Trachea central. LUNGS: Is clear to auscultation percussion without any rhonchi rales wheezing. HEART: S1-S2 is heard. S1 is of normal intensity. There is no S3 gallop. There is no S4 gallop. There is systolic murmur left sternal border and the apex there is no rub. ABDOMEN: Is obese. Nontender. There is no hepatosplenomegaly. Bowel sounds are well heard. EXTREMITIES: Femorals are deep. Femorals are diminished. There is no femoral bruits. Leg pulses are well felt. There is no pedal edema. There is no DVT or cellulitis. There is no cyanosis or clubbing. ROUGH ROUNDER MACHINE: The patient is conscious awake oriented x3 with no focal deficits. PSYCHIATRIC: Patient judgment insight are intact her affect is normal. Labs- All tests 24 hr 05/08/19 05/09/19 05/09/19 22:09 07:27 07:27 WBC 6.1 RBC 3.44 L Hgb 9.6 L Hct 30.2 L MCV 88 MCH 28.0 MCHC 31.8 L RDW 16.0 H Plt Count 196 Lymph % (Auto) 19.5 Baldwin % (Auto) 7.2 Eos % (Auto) 3.0 Baso % (Auto) 0.3 Absolute Neuts (auto) 4.3 Absolute Lymphs (auto) 1.2 Absolute Monos (auto) 0.4 Absolute Eos (auto) 0.2 Absolute Basos (auto) 0.0 Seg Neutrophils % 70.0 Sodium 139.8 Potassium 4.3 Chloride 111 H Carbon Dioxide 18 L Anion Gap 11 BUN 20 Creatinine 1.61 H Est GFR ( Amer) 38 L Est GFR (MDRD) Non-Af 32 L Glucose 153 H POC Glucose 162 H Calcium 9.3 05/09/19 05/09/19 05/09/19 07:55 11:41 15:57 WBC RBC Hgb Hct MCV MCH MCHC RDW Plt Count Lymph % (Auto) Baldwin % (Auto) Eos % (Auto) Baso % (Auto) Absolute Neuts (auto) Absolute Lymphs (auto) Absolute Monos (auto) Absolute Eos (auto) Absolute Basos (auto) Seg Neutrophils % Sodium Potassium Chloride Carbon Dioxide Anion Gap BUN Creatinine Est GFR ( Amer) Est GFR (MDRD) Non-Af Glucose POC Glucose 166 H 229 H 167 H Calcium Chest X-Ray 05/06/19 11:11 IMPRESSION: NO ACUTE RADIOGRAPHIC FINDING IN THE CHEST. IMPRESSION/RECOMMENDATION: 1. Symptomatic anemia secondary to GI bleed. Would recommend transfusion and keeping the hemoglobin 10 or above. 2. GI bleed exact source not identified as yet. Patient has a history of AV malformation of the GI tract. Hence she would be at high risk for recurrent bleeding. 3. Paroxysmal atrial fibrillation, with no recurrence. In view of the current situation which makes anticoagulation a higher risk category, would recommend that once the patient starts taking an by mouth would start the patient on amiodarone to keep the patient in sinus rhythm. We will stop the patient's Cardizem CD. Amiodarone is preferred since the patient has renal failure and sotalol might not be right steroids. We will stop the patient's Eliquis. Discussed with Dr. Manjinder Medina, mixing picker tender at [facility] who agrees that the patient will be a candidate for watchman procedure. We will set this up as an outpatient. The patient's liver function tests and thyroid function tests are within normal limits. Will decrease amiodarone to 200 mg twice daily when the patient is discharged. 4. Coronary artery disease. History of stent in the LAD and diagonal and history of moderate LAD lesion, with no angina. No evidence of acute coronary event this admission. 5. Hypertension: Blood pressure well controlled. 6. Diabetes mellitus: Continue current antidiabetic regimen and Accu-Cheks as per protocol. 7. Chronic kidney disease stage III. 8. History of bipolar disorder: Stable. Patient is reviewed. Medications and medical regimen and management plan discussed with attending provider on the case. Medical decision making is of moderate complexity. Cardiac status is stable. Will sign off and follow the patient in the office.
[2019-05-10] MEDS: HYDRALAZINE HCL 50 MG TABLET PO SCH ×3 (05:59→22:22)
[2019-05-10] MEDS: PANTOPRAZOLE SODIUM 40 MG TABLET.DR PO SCH ×2 (05:59→17:39)
[2019-05-10] MEDS ORDERED: NITROGLYCERIN 0.4 MG/TAB 25 TAB/BOTTLE SL PRN (07:20)
[2019-05-10] MEDS ORDERED: NORMAL SALINE 1000 ML 1,000 ML IV PRN (07:25)
[2019-05-10] MEDS ORDERED: FUROSEMIDE 20 MG TABLET PO SCH (08:00)
[2019-05-10] MEDS: INSULIN LISPRO 100 UNIT/ML 3 ML VIAL SUBCUT SCH ×4 (08:09→22:21)
[2019-05-10 09:30] LABS: ALBUMIN 3.9 g/dL (3.5-5.0); ALKALINE PHOSPHATASE 99 U/L (38-126); ANION GAP 12 (5-19); ASPARTATE AMINO TRANSFERASE 35 U/L (14-36); BILIRUBIN,DIRECT 0.2 mg/dL (0.0-0.4); BILIRUBIN,TOTAL 0.6 mg/dL (0.2-1.3); BLOOD UREA NITROGEN 22 mg/dL (7-20); CALCIUM 9.7 mg/dL (8.4-10.2); CARBON DIOXIDE 17 mmol/L (22-30); CHLORIDE 109 mmol/L (98-107); GLUCOSE 187 mg/dL (75-110); POTASSIUM 4.6 mmol/L (3.6-5.0); TOTAL PROTEIN 6.9 g/dL (6.3-8.2)
[2019-05-10] MEDS: ASPIRIN 81 MG TABLET, ENT COATED PO SCH (09:30)
[2019-05-10] MEDS: LOSARTAN POTASSIUM 50 MG TABLET PO SCH (09:31)
[2019-05-10] MEDS: HUM INSULIN NPH/REG INSULIN HM 100 UNIT/1 ML 3 ML SUBCUT SCH ×2 (09:31→17:41)
[2019-05-10] MEDS: AMIODARONE HCL 200 MG TABLET PO SCH ×2 (09:31→22:23)
[2019-05-10] MEDS: CYANOCOBALAMIN (VITAMIN B-12) 1,000 MCG TABLET PO SCH (09:31)
[2019-05-10] MEDS: INSULIN GLARGINE,HUM.REC.ANLOG 1,000 UNIT/10 ML VIAL SUBCUT SCH (09:32)
--- NOTE | 2019-05-10 09:43 | PDOC PROGRESS REPORT ---
Subjective Progress Note for:: 05/10/19 Subjective:: 69 year old female past medical history of CAD status post PCI x1 stent in 2007, hyperlipidemia, GERD, paroxysmal A. fib on Eliquis, hypertension, diabetes, AV malformation status post endoscopic cauterization was sent to ED from PCPs office for evaluation of dizziness and anemia. And has been having worsening dyspnea on exertion, associated with lightheadedness, presyncope, and occasional substernal pressure-like chest pain for the last 2 to 3 weeks worsening in the last 1 week. She had routine blood work on 04/29/2019 and her hemoglobin was 7.5 Bactrim. Today when she went to see Dr. Mckinnon her PCP she was sent to ED for further evaluation. Patient states that her last colonoscopy/endoscopy was somewhere between 6 months to 1 year ago and she had polyps removed at that point in time and also has had endoscopic cauterization of her AV malformation in the past. In ED she was noted to be tachypneic, very pale, with hemoglobin of 8.3, creatinine of 1.36 and guaiac positive stool. EKG was sinus rhythm and troponin was negative. ED physician had contacted Dr. Aldana from surgery and he has suggested for patient to be admitted made n.p.o. for possible endoscopy tomorrow. 05/07/2019. No acute events overnight. Patient is status post upper GI endoscopy with finding of severe distal esophagitis. Patient comfortably sitting in bed in no apparent distress. Denies any fever, chills, nausea, vomiting, diarrhea, constipation or any urinary symptoms. 05/08/2019. No acute events overnight. Denies any fever, chills, nausea, vomiting, diarrhea. Last bowel movement yesterday. Has not had any melena, hematochezia, hemoptysis or hematemesis. 05/09/2018. No acute events overnight. H&H stable. Patient is ambulatory with the help of PT. P.o. tolerant. Denies any fever, chills, nausea, vomiting, diarrhea, constipation or any urinary symptoms. Patient could be potentially discharged home however her renal function is worsening. 05/10/2019 no acute events in the last 24 hours. Afebrile. Today's labs are pending. Nephrology on board cardiology on board. Heart rate is close to 90s. In sinus rhythm. No complaints from the patient. Comfortably in the bed communicating well. Reason For Visit: HISTORY OF A FIB,AT RISK OF GOING INTO A FIB RVR Physical Exam Vital Signs: Temp Pulse Resp BP Pulse Ox 98.2 F 80 18 124/51 L 100 05/10/19 07:40 05/10/19 07:40 05/10/19 07:40 05/10/19 07:40 05/10/19 07:40 Intake & Output 05/09/19 05/10/19 05/11/19 06:59 06:59 06:59 Intake Total 2019 730 Output Total 1350 1550 Balance 670 -820 Weight 118.7 kg 118.3 kg General appearance: PRESENT: no acute distress, obese Head exam: PRESENT: atraumatic Eye exam: PRESENT: PERRLA Mouth exam: PRESENT: moist, tongue midline Teeth exam: PRESENT: poor dentation Neck exam: ABSENT: carotid bruit, JVD, lymphadenopathy, thyromegaly Respiratory exam: PRESENT: decreased breath sounds Cardiovascular exam: PRESENT: tachycardia GI/Abdominal exam: PRESENT: ascites Rectal exam: PRESENT: deferred Extremities exam: PRESENT: full ROM. ABSENT: calf tenderness, clubbing, pedal edema Neurological exam: PRESENT: alert, awake, oriented to person, oriented to place, oriented to time, oriented to situation, CN II-XII grossly intact. ABSENT: motor sensory deficit Psychiatric exam: PRESENT: appropriate affect, normal mood. ABSENT: homicidal ideation, suicidal ideation Results Laboratory Results: 05/10/19 08:41 05/10/19 08:41 WBC Cancelled RBC Cancelled Hgb Cancelled Hct Cancelled MCV Cancelled MCH Cancelled MCHC Cancelled RDW Cancelled Plt Count Cancelled Seg Neutrophils % Cancelled 05/06/19 05/06/19 11:53 17:43 Troponin I < 0.012 < 0.012 Impressions: Chest X-Ray 05/06/19 11:11 IMPRESSION: NO ACUTE RADIOGRAPHIC FINDING IN THE CHEST. Assessment and Plan - Diagnosis (1) PAYAM (acute kidney injury) Is this a current diagnosis for this admission?: Yes Plan: Prerenal. Worsening renal function. Likely due to dehydration. Initially started on cautious volume resuscitation. Had to DC fluids in anticipation for discharge. However renal function is worsening. Patient is still making adequate amount of urine. Monitor volume status, monitor electrolytes and replace as needed. Avoid nephrotoxic meds. Nephrology consulted. Follow-up recommendation. Note: On admission patient given a list of her home meds from below which included acetazolamide but she could not give me any reason why and by whom it was prescribed. It was resumed as it was listed on her home meds. DC Diamox. 05/10/2019-patient blood pressure today is 135/70. Today's labs are pending. Diamox is discontinued. Started on normal saline at 50 cc/h. To let check the labs today and tomorrow and to watch for the fluid overload. (2) Anemia Qualifiers: Anemia type: iron deficiency Iron deficiency anemia type: chronic blood loss Qualified Code(s): D50.0 - Iron deficiency anemia secondary to blood loss (chronic) Is this a current diagnosis for this admission?: No Plan: 05/10/2019 hemoglobin 9.6 stable. Plan is to closely monitor the labs on daily basis. Anemia of chronic disease most likely secondary to CKD. (3) CAD (coronary artery disease) Qualifiers: Coronary Disease-Associated Artery/Lesion type: [place] artery Is this a current diagnosis for this admission?: Yes Plan: History of CAD. Status post PCI x1 stent 2006. Complaining of intermittent chest pain for the last 2 to 3 weeks. Denies any active chest pain at this admission. EKG no acute changes. Troponin negative. Patient had nuclear stress test as outpatient last month. As per Dr. Day it was negative. Continue telemetry, hold antiplatelets, restart beta-blockers, NAYANA, statins. PRN nitro and morphine. 06/06/2019-patient had a stress test done as an outpatient which was negative for acute pathology. No complaints of chest pain during the hospital stay. Troponins are negative. Presently on beta-blockers and statins. (4) Dyspnea on exertion Is this a current diagnosis for this admission?: Yes Plan: Improving. Most likely due to severe anemia. EKG no acute changes. Troponin WNL. SPO2 WNL on room air. Afebrile. Chest x-ray no acute changes. Continue supportive transfusions, monitor for fall, supplemental oxygen and PT/OT. (5) Paroxysmal atrial fibrillation Is this a current diagnosis for this admission?: Yes Plan: History of paroxysmal A. fib. Currently sinus rhythm. Cardizem has been switched to amiodarone by cardiology. Eliquis is also been DC'd cardiology for risk of bleeding. Continue telemetry. Continue amiodarone. PRN metoprolol. Cardiology consulted. Recommendations noted. Please refer to note. 05/10/2019 patient has history of paroxysmal atrial fibrillation presently in sinus rhythm. Cardizem is discontinued on amiodarone. Eliquis is also discontinued because of the risk of bleeding. Dr. Day is on board. 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 Plan is to continue blood sugar monitoring before meals and at bedtime. Test blood sugar is 140. To check for hemoglobin A1c. (7) Obesity Is this a current diagnosis for this admission?: No Plan: 05/10/2019 BMI is more than 46 diet exercise weight loss lifestyle modifications discussed with the patient.
[2019-05-10] MEDS ORDERED: DILTIAZEM HCL 180 MG CAPSULE.CR PO SCH (10:00)
[2019-05-10] MEDS ORDERED: APIXABAN 5 MG TABLET PO SCH (10:00)
[2019-05-10 10:20] LABS: ABSOLUTE EOSINOPHILS # (AUTO) 0.1 10^3/uL (0.0-0.6); ABSOLUTE LYMPHOCYTES (AUTO) 0.6 10^3/uL (0.5-4.7); ABSOLUTE MONOCYTES (AUTO) 0.4 10^3/uL (0.1-1.4); ABSOLUTE NEUT (AUTO) 5.5 10^3/uL (1.7-8.2); BASOPHILS % (AUTO) 0.7 % (0-2); EOSINOPHILS % (AUTO) 1.8 % (0-6); HEMATOCRIT 33.4 % (36.0-47.0); HEMOGLOBIN 10.6 g/dL (12.0-15.5); LYMPHOCYTES % (AUTO) 9.6 % (13-45); MEAN CORPUSCULAR HGB CONC 31.6 g/dL (32.0-36.0); MEAN CORPUSCULAR VOLUME 89 fl (80-97); MONOCYTES % (AUTO) 5.7 % (3-13); PLATELET COUNT 223 10^3/uL (150-450); RED BLOOD COUNT 3.77 10^6/uL (3.72-5.28); RED CELL DISTRIBUTION WIDTH 15.7 % (11.5-14.0); SEGMENTED NEUTROPHILS % (AUTO) 82.2 % (42-78); TOTAL CELLS COUNTED % (AUTO) 100 %; WHITE BLOOD COUNT 6.7 10^3/uL (4.0-10.5)
--- NOTE | 2019-05-10 12:29 | PDOC PROGRESS REPORT ---
Subjective Progress Note for:: 05/10/19 Reason For Visit: She states she has been doing well until this morning when she was trying to brush her teeth when she became short of breath. It lasted briefly for approximately 5 to 10 minutes at the most according to patient.She is now feeling back to baseline. However fluids has are being held. There is no complaints of any chest pains, no fever or chills. Labs and medications were reviewed. Creatinine has been improving. Physical Exam Vital Signs: Temp Pulse Resp BP Pulse Ox 98.1 F 83 18 137/60 H 100 05/10/19 11:14 05/10/19 11:14 05/10/19 11:14 05/10/19 11:14 05/10/19 11:14 Intake & Output 05/09/19 05/10/19 05/11/19 06:59 06:59 06:59 Intake Total 2020 730 480 Output Total 1350 1550 400 Balance 670 -820 80 Weight 118.7 kg 118.3 kg General appearance: PRESENT: no acute distress Respiratory exam: PRESENT: clear to auscultation giuliano, decreased breath sounds. ABSENT: crackles Cardiovascular exam: PRESENT: +S1, +S2 GI/Abdominal exam: PRESENT: normal bowel sounds, soft. ABSENT: organomegaly, tenderness Extremities exam: PRESENT: pedal edema. ABSENT: calf tenderness - Negative Homans sign. Neurological exam: PRESENT: alert, oriented to place Psychiatric exam: PRESENT: anxious Skin exam: ABSENT: cyanosis, erythema, mottled, rash Results Laboratory Results: 05/10/19 10:03 05/10/19 08:41 05/10/19 05/10/19 05/10/19 08:41 08:41 10:03 WBC Cancelled 6.7 RBC Cancelled 3.77 Hgb Cancelled 10.6 L Hct Cancelled 33.4 L MCV Cancelled 89 MCH Cancelled 28.0 MCHC Cancelled 31.6 L RDW Cancelled 15.7 H Plt Count Cancelled 223 Seg Neutrophils % Cancelled 82.2 H Sodium 137.6 Potassium 4.6 Chloride 109 H Carbon Dioxide 17 L Anion Gap 12 BUN 22 H Creatinine 1.55 H Est GFR ( Amer) 40 L Glucose 187 H Calcium 9.7 Magnesium 1.8 Total Bilirubin 0.6 AST 35 Alkaline Phosphatase 99 Total Protein 6.9 Albumin 3.9 05/06/19 05/06/19 11:53 17:43 Troponin I < 0.012 < 0.012 Impressions: Chest X-Ray 05/06/19 11:11 IMPRESSION: NO ACUTE RADIOGRAPHIC FINDING IN THE CHEST. Assessment & Plan - Diagnosis (1) PAYAM (acute kidney injury) Is this a current diagnosis for this admission?: Yes Plan: She is improving with measures instituted yesterday. However fluids are being held since she became a bit short of breath this morning while brushing her teeth. I will order a chest x-ray. Advised the patient to keep moving around and not to be in bed as she is not on any anticoagulation.Advised to report to the nurse if if develops any chest pain or shortness of breath. Discussions were done with the treating nurse Vanda. No features to indicate acute PE. (2) GI bleed Qualifiers: GI bleed type/associated pathology: unspecified gastrointestinal hemorrhage type Qualified Code(s): K92.2 - Gastrointestinal hemorrhage, unspecified Plan: Stable currently.Hemoglobin 10.6/9.6 yesterday. Off anticoagulants (3) Hx of arteriovenous malformation (AVM) Is this a current diagnosis for this admission?: Yes Plan: Currently stable. (4) Essential (primary) hypertension Plan: Well-controlled. (5) Paroxysmal atrial fibrillation Is this a current diagnosis for this admission?: Yes Plan: On amiodarone and rate controlled. Off anticoagulants because of recurrent GI bleed. (6) Type 2 diabetes mellitus with diabetic chronic kidney disease Qualifiers: Diabetes mellitus long term care administrator insulin use: without group home use Chronic kidney disease stage: stage 3 (moderate) Qualified Code(s): E11.22 - Type 2 diabetes mellitus with diabetic chronic kidney disease; N18.3 - Chronic kidney disease, stage 3 (moderate) Is this a current diagnosis for this admission?: No Plan: Advised tight control (7) Metabolic acidosis Plan: Stable. I have discontinued Diamox.
--- NOTE | 2019-05-10 12:40 | RADIOLOGY REPORT (SQ) ---
EXAM DESCRIPTION: CHEST SINGLE VIEW COMPLETED DATE/TIME: 05/10/2019 12:30 pm REASON FOR STUDY: R/O Heart Failure Exacerbation COMPARISON: 05/06/2019 EXAM PARAMETERS: NUMBER OF VIEWS: One view. TECHNIQUE: Single frontal radiographic view of the chest acquired. RADIATION DOSE: NA LIMITATIONS: None. FINDINGS: LUNGS AND PLEURA: No opacities, masses or pneumothorax. No pleural effusion. MEDIASTINUM AND HILAR STRUCTURES: No masses. Contour normal. HEART AND VASCULAR STRUCTURES: Heart normal in size. Normal vasculature. BONES: No acute findings. HARDWARE: Partially visualized bilateral for shoulder arthroplasties. OTHER: No other significant finding. IMPRESSION: No evidence of pulmonary edema or pleural effusion. TECHNICAL DOCUMENTATION: JOB ID: [id number] [employer]- All Rights Reserved Reading location - IP/workstation name: [email or web address]
[2019-05-10] MEDS: MONTELUKAST SODIUM 10 MG TABLET PO SCH (17:39)
[2019-05-10] MEDS: ATORVASTATIN CALCIUM 40 MG TABLET PO SCH (22:22)
[2019-05-11 05:27] LABS: ABSOLUTE EOSINOPHILS # (AUTO) 0.2 10^3/uL (0.0-0.6); ABSOLUTE LYMPHOCYTES (AUTO) 1.5 10^3/uL (0.5-4.7); ABSOLUTE MONOCYTES (AUTO) 0.5 10^3/uL (0.1-1.4); ABSOLUTE NEUT (AUTO) 3.5 10^3/uL (1.7-8.2); BASOPHILS % (AUTO) 0.5 % (0-2); EOSINOPHILS % (AUTO) 2.6 % (0-6); HEMATOCRIT 28.2 % (36.0-47.0); LYMPHOCYTES % (AUTO) 26.3 % (13-45); MEAN CORPUSCULAR HEMOGLOBIN 27.5 pg (27.0-33.4); MEAN CORPUSCULAR VOLUME 86 fl (80-97); MONOCYTES % (AUTO) 8.8 % (3-13); PLATELET COUNT 197 10^3/uL (150-450); RED BLOOD COUNT 3.27 10^6/uL (3.72-5.28); RED CELL DISTRIBUTION WIDTH 15.8 % (11.5-14.0); SEGMENTED NEUTROPHILS % (AUTO) 61.8 % (42-78); TOTAL CELLS COUNTED % (AUTO) 100 %; WHITE BLOOD COUNT 5.7 10^3/uL (4.0-10.5)
[2019-05-11] MEDS: PANTOPRAZOLE SODIUM 40 MG TABLET.DR PO SCH ×2 (05:33→17:07)
[2019-05-11] MEDS: HYDRALAZINE HCL 50 MG TABLET PO SCH ×3 (05:33→21:42)
[2019-05-11 05:48] LABS: ALBUMIN 3.1 g/dL (3.5-5.0); ALKALINE PHOSPHATASE 74 U/L (38-126); ANION GAP 9 (5-19); ASPARTATE AMINO TRANSFERASE 22 U/L (14-36); BILIRUBIN,DIRECT 0.2 mg/dL (0.0-0.4); BILIRUBIN,TOTAL 0.4 mg/dL (0.2-1.3); BLOOD UREA NITROGEN 26 mg/dL (7-20); CALCIUM 8.8 mg/dL (8.4-10.2); CARBON DIOXIDE 17 mmol/L (22-30); CHLORIDE 112 mmol/L (98-107); GLUCOSE 97 mg/dL (75-110); POTASSIUM 4.1 mmol/L (3.6-5.0); TOTAL PROTEIN 5.6 g/dL (6.3-8.2)
[2019-05-11] MEDS: INSULIN LISPRO 100 UNIT/ML 3 ML VIAL SUBCUT SCH ×4 (08:15→21:34)
[2019-05-11] MEDS: INSULIN GLARGINE,HUM.REC.ANLOG 1,000 UNIT/10 ML VIAL SUBCUT SCH (10:13)
[2019-05-11] MEDS: CYANOCOBALAMIN (VITAMIN B-12) 1,000 MCG TABLET PO SCH (10:13)
[2019-05-11] MEDS: LOSARTAN POTASSIUM 50 MG TABLET PO SCH (10:13)
[2019-05-11] MEDS: HUM INSULIN NPH/REG INSULIN HM 100 UNIT/1 ML 3 ML SUBCUT SCH ×2 (10:13→17:07)
[2019-05-11] MEDS: ASPIRIN 81 MG TABLET, ENT COATED PO SCH (10:13)
[2019-05-11] MEDS: AMIODARONE HCL 200 MG TABLET PO SCH ×2 (10:13→21:42)
--- NOTE | 2019-05-11 11:13 | PDOC PROGRESS REPORT ---
Subjective Progress Note for:: 05/11/19 Subjective:: 69 year old female past medical history of CAD status post PCI x1 stent in 2007, hyperlipidemia, GERD, paroxysmal A. fib on Eliquis, hypertension, diabetes, AV malformation status post endoscopic cauterization was sent to ED from PCPs office for evaluation of dizziness and anemia. And has been having worsening dyspnea on exertion, associated with lightheadedness, presyncope, and occasional substernal pressure-like chest pain for the last 2 to 3 weeks worsening in the last 1 week. She had routine blood work on 04/29/2019 and her hemoglobin was 7.5 Bactrim. Today when she went to see Dr. Mckinnon her PCP she was sent to ED for further evaluation. Patient states that her last colonoscopy/endoscopy was somewhere between 6 months to 1 year ago and she had polyps removed at that point in time and also has had endoscopic cauterization of her AV malformation in the past. In ED she was noted to be tachypneic, very pale, with hemoglobin of 8.3, creatinine of 1.36 and guaiac positive stool. EKG was sinus rhythm and troponin was negative. ED physician had contacted Dr. Aldana from surgery and he has suggested for patient to be admitted made n.p.o. for possible endoscopy tomorrow. 05/07/2019. No acute events overnight. Patient is status post upper GI endoscopy with finding of severe distal esophagitis. Patient comfortably sitting in bed in no apparent distress. Denies any fever, chills, nausea, vomiting, diarrhea, constipation or any urinary symptoms. 05/08/2019. No acute events overnight. Denies any fever, chills, nausea, vomiting, diarrhea. Last bowel movement yesterday. Has not had any melena, hematochezia, hemoptysis or hematemesis. 05/09/2018. No acute events overnight. H&H stable. Patient is ambulatory with the help of PT. P.o. tolerant. Denies any fever, chills, nausea, vomiting, diarrhea, constipation or any urinary symptoms. Patient could be potentially discharged home however her renal function is worsening. 05/10/2019 no acute events in the last 24 hours. Afebrile. Today's labs are pending. Nephrology on board cardiology on board. Heart rate is close to 90s. In sinus rhythm. No complaints from the patient. Comfortably in the bed communicating well. 05/11/2019-no acute events in the last 24 hours. Afebrile. Patient is presently on amiodarone heart rate in the 60s. Comfortable in the bed communicating well. Not in distress. Chest x-ray was done yesterday negative for pulmonary edema. Creatinine improved to 1.38. Patient is not presently on IV fluids. Blood pressure is 130/55 today. Reason For Visit: HISTORY OF A FIB,AT RISK OF GOING INTO A FIB RVR Physical Exam Vital Signs: Temp Pulse Resp BP Pulse Ox 97.4 F 71 17 154/60 H 99 05/11/19 08:03 05/11/19 08:03 05/11/19 08:03 05/11/19 08:03 05/11/19 08:03 Intake & Output 05/10/19 05/11/19 05/12/19 06:59 06:59 06:59 Intake Total 730 1080 230 Output Total 1550 900 Balance -820 180 230 Weight 118.3 kg 116.7 kg General appearance: PRESENT: no acute distress, morbidly obese Head exam: PRESENT: atraumatic Eye exam: PRESENT: PERRLA Ear exam: PRESENT: normal external ear exam Mouth exam: PRESENT: moist, tongue midline Teeth exam: PRESENT: poor dentation Neck exam: ABSENT: carotid bruit, JVD, lymphadenopathy, thyromegaly Respiratory exam: PRESENT: decreased breath sounds Cardiovascular exam: PRESENT: RRR. ABSENT: diastolic murmur, rubs, systolic murmur Pulses: PRESENT: normal dorsalis pedis pul GI/Abdominal exam: PRESENT: normal bowel sounds, soft. ABSENT: distended, guarding, mass, organolmegaly, rebound, tenderness Rectal exam: PRESENT: deferred Extremities exam: PRESENT: full ROM. ABSENT: calf tenderness, clubbing, pedal edema Neurological exam: PRESENT: alert, awake, oriented to person, oriented to place, oriented to time, oriented to situation, CN II-XII grossly intact. ABSENT: motor sensory deficit Psychiatric exam: PRESENT: appropriate affect, normal mood. ABSENT: homicidal ideation, suicidal ideation Results Laboratory Results: 05/11/19 04:33 05/11/19 04:33 05/11/19 05/11/19 04:33 04:33 WBC 5.7 RBC 3.27 L Hgb 9.0 L Hct 28.2 L MCV 86 MCH 27.5 MCHC 32.0 RDW 15.8 H Plt Count 197 Seg Neutrophils % 61.8 Sodium 137.9 Potassium 4.1 Chloride 112 H Carbon Dioxide 17 L Anion Gap 9 BUN 26 H Creatinine 1.38 H Est GFR ( Amer) 46 L Glucose 97 Calcium 8.8 Magnesium 1.8 Total Bilirubin 0.4 AST 22 Alkaline Phosphatase 74 Total Protein 5.6 L Albumin 3.1 L 05/06/19 05/06/19 11:53 17:43 Troponin I < 0.012 < 0.012 Impressions: Chest X-Ray 05/10/19 00:00 IMPRESSION: No evidence of pulmonary edema or pleural effusion. Assessment and Plan - Diagnosis (1) PAYAM (acute kidney injury) Is this a current diagnosis for this admission?: Yes Plan: Prerenal. Worsening renal function. Likely due to dehydration. Initially started on cautious volume resuscitation. Had to DC fluids in anticipation for discharge. However renal function is worsening. Patient is still making adequate amount of urine. Monitor volume status, monitor electrolytes and replace as needed. Avoid ne phrotoxic meds. Nephrology consulted. Follow-up recommendation. Note: On admission patient given a list of her home meds from below which included acetazolamide but she could not give me any reason why and by whom it was prescribed. It was resumed as it was listed on her home meds. DC Diamox. 05/10/2019-patient blood pressure today is 135/70. Today's labs are pending. Diamox is discontinued. Started on normal saline at 50 cc/h. To let check the labs today and tomorrow and to watch for the fluid overload. 05/11/2019 blood pressure today is 131/55. Creatinine improved to 1.38. Patient is presently off the IV fluids. Acute kidney injury most likely secondary to prerenal causes resolving. Patient is still acidotic with a serum bicarb of 17 Diamox is on hold. (2) Anemia Qualifiers: Anemia type: iron deficiency Iron deficiency anemia type: chronic blood loss Qualified Code(s): D50.0 - Iron deficiency anemia secondary to blood loss (chronic) Is this a current diagnosis for this admission?: No Plan: 05/10/2019 hemoglobin 9.6 stable. Plan is to closely monitor the labs on daily basis. Anemia of chronic disease most likely secondary to CKD. 05/11/2019-hemoglobin today is 9.0 stable. Plan is to closely monitor the labs on daily basis. (3) CAD (coronary artery disease) Qualifiers: Coronary Disease-Associated Artery/Lesion type: [place] artery Is this a current diagnosis for this admission?: Yes Plan: History of CAD. Status post PCI x1 stent 2006. Complaining of intermittent chest pain for the last 2 to 3 weeks. Denies any active chest pain at this admission. EKG no acute changes. Troponin negative. Patient had nuclear stress test as outpatient last month. As per Dr. Day it was negative. Continue telemetry, hold antiplatelets, restart beta-blockers, NAYANA, statins. PRN nitro and morphine. 06/06/2019-patient had a stress test done as an outpatient which was negative for acute pathology. No complaints of chest pain during the hospital stay. Troponins are negative. Presently on beta-blockers and statins. (4) Dyspnea on exertion Is this a current diagnosis for this admission?: Yes Plan: Improving. Most likely due to severe anemia. EKG no acute changes. Troponin WNL. SPO2 WNL on room air. Afebrile. Chest x-ray no acute changes. Continue supportive transfusions, monitor for fall, supplemental oxygen and PT/OT. 05/11/2019-patient complains of shortness of breath yesterday morning chest x-ray was done negative for fluid overload. Patient is presently off the IV fluids pulse ox is 97% room air. Dyspnea resolved. (5) Paroxysmal atrial fibrillation Is this a current diagnosis for this admission?: Yes Plan: History of paroxysmal A. fib. Currently sinus rhythm. Cardizem has been switched to amiodarone by cardiology. Eliquis is also been DC'd cardiology for risk of bleeding. Continue telemetry. Continue amiodarone. PRN metoprolol. Cardiology consulted. Recommendations noted. Please refer to note. 05/10/2019 patient has history of paroxysmal atrial fibrillation presently in sinus rhythm. Cardizem is discontinued on amiodarone. Eliquis is also discontinued because of the risk of bleeding. Dr. Day is on board. 05/11/2019-patient is on amiodarone heart rate is 63 this morning. She is not a candidate for anticoagulation and not a candidate for sotalol because of the poor kidney function as per Dr. Day. (6) Type 2 diabetes mellitus with diabetic chronic kidney disease Qualifiers: Diabetes mellitus retirement insulin use: without terminal operations manager use Chronic kidney disease stage: stage 3 (moderate) Qualified Code(s): E11.22 - Type 2 diabetes mellitus with diabetic chronic kidney disease; N18.3 - Chronic kidney disease, stage 3 (moderate) Is this a current diagnosis for this admission?: No Plan: 05/10/2019 patient has history of chronic type 2 diabetes mellitus. Plan is to continue blood sugar monitoring before meals and at bedtime. Test blood sugar is 140. To check for hemoglobin A1c. 05/11/2019-hemoglobin A1c 6.5. Latest blood sugar is 101. Diet exercise weight loss lifestyle modifications discussed with the patient. (7) Obesity Is this a current diagnosis for this admission?: No
[2019-05-11] MEDS: MONTELUKAST SODIUM 10 MG TABLET PO SCH (17:07)
[2019-05-11] MEDS: ATORVASTATIN CALCIUM 40 MG TABLET PO SCH (21:43)
[2019-05-12] MEDS: PANTOPRAZOLE SODIUM 40 MG TABLET.DR PO SCH (06:28)
[2019-05-12] MEDS: HYDRALAZINE HCL 50 MG TABLET PO SCH (06:28)
[2019-05-12] MEDS: INSULIN LISPRO 100 UNIT/ML 3 ML VIAL SUBCUT SCH (07:36)
[2019-05-12] MEDS: AMIODARONE HCL 200 MG TABLET PO SCH (09:04)
[2019-05-12] MEDS: HUM INSULIN NPH/REG INSULIN HM 100 UNIT/1 ML 3 ML SUBCUT SCH (09:04)
[2019-05-12] MEDS: CYANOCOBALAMIN (VITAMIN B-12) 1,000 MCG TABLET PO SCH (09:04)
[2019-05-12] MEDS: ASPIRIN 81 MG TABLET, ENT COATED PO SCH (09:04)
[2019-05-12] MEDS: LOSARTAN POTASSIUM 50 MG TABLET PO SCH (09:04)
[2019-05-12] MEDS: INSULIN GLARGINE,HUM.REC.ANLOG 1,000 UNIT/10 ML VIAL SUBCUT SCH (09:05)
[2019-05-12 10:25] VITALS: BP 138/52
--- NOTE | 2019-05-12 11:46 | PDOC DISCHARGE SUMMARY ---
Impression - Admit/DC Date/PCP Admission Date/Primary Care Provider: 05/09/19 14:30 MEKA MCKINNON MD Discharge Date: 05/12/19 - Discharge Diagnosis (1) PAYAM (acute kidney injury) Is this a current diagnosis for this admission?: Yes (2) Anemia Is this a current diagnosis for this admission?: No (3) CAD (coronary artery disease) Is this a current diagnosis for this admission?: Yes (4) Dyspnea on exertion Is this a current diagnosis for this admission?: Yes (5) Paroxysmal atrial fibrillation Is this a current diagnosis for this admission?: Yes (6) Type 2 diabetes mellitus with diabetic chronic kidney disease Is this a current diagnosis for this admission?: No (7) Obesity Is this a current diagnosis for this admission?: No - Assessment Summary: (1) PAYAM (acute kidney injury) Is this a current diagnosis for this admission?: Yes Plan: Prerenal. Worsening renal function. Likely due to dehydration. Initially started on cautious volume resuscitation. Had to DC fluids in anticipation for discharge. However renal function is worsening. Patient is still making adequate amount of urine. Monitor volume status, monitor electrolytes and replace as needed. Avoid nephrotoxic meds. Nephrology consulted. Follow-up recommendation. Note: On admission patient given a list of her home meds from below which included acetazolamide but she could not give me any reason why and by whom it was prescribed. It was resumed as it was listed on her home meds. DC Diamox. 05/10/2019-patient blood pressure today is 135/70. Today's labs are pending. Diamox is discontinued. Started on normal saline at 50 cc/h. To let check the labs today and tomorrow and to watch for the fluid overload. 05/11/2019 blood pressure today is 131/55. Creatinine improved to 1.38. Patient is presently off the IV fluids. Acute kidney injury most likely secondary to prerenal causes resolving. Patient is still acidotic with a serum bicarb of 17 Diamox is on hold. (2) Anemia Qualifiers: Anemia type: iron deficiency Iron deficiency anemia type: chronic blood loss Qualified Code(s): D50.0 - Iron deficiency anemia secondary to blood loss (chronic) Is this a current diagnosis for this admission?: No Plan: 05/10/2019 hemoglobin 9.6 stable. Plan is to closely monitor the labs on daily basis. Anemia of chronic disease most likely secondary to CKD. 05/11/2019-hemoglobin today is 9.0 stable. Plan is to closely monitor the labs on daily basis. (3) CAD (coronary artery disease) Qualifiers: Coronary Disease-Associated Artery/Lesion type: [place] artery Is this a current diagnosis for this admission?: Yes Plan: History of CAD. Status post PCI x1 stent 2006. Complaining of intermittent chest pain for the last 2 to 3 weeks. Denies any active chest pain at this admission. EKG no acute changes. Troponin negative. Patient had nuclear stress test as outpatient last month. As per Dr. Saleh it was negative. Continue telemetry, hold antiplatelets, restart beta-blockers, NAYANA, statins. PRN nitro and morphine. 06/06/2019-patient had a stress test done as an outpatient which was negative for acute pathology. No complaints of chest pain during the hospital stay. Troponins are negative. Presently on beta-blockers and statins. (4) Dyspnea on exertion Is this a current diagnosis for this admission?: Yes Plan: Improving. Most likely due to severe anemia. EKG no acute changes. Troponin WNL. SPO2 WNL on room air. Afebrile. Chest x-ray no acute changes. Continue supportive transfusions, monitor for fall, supplemental oxygen and PT/OT. 05/11/2019-patient complains of shortness of breath yesterday morning chest x-ray was done negative for fluid overload. Patient is presently off the IV fluids pulse ox is 97% room air. Dyspnea resolved. (5) Paroxysmal atrial fibrillation Is this a current diagnosis for this admission?: Yes Plan: History of paroxysmal A. fib. Currently sinus rhythm. Cardizem has been switched to amiodarone by cardiology. Eliquis is also been DC'd cardiology for risk of bleeding. Continue telemetry. Continue amiodarone. PRN metoprolol. Cardiology consulted. Recommendations noted. Please refer to note. 05/10/2019 patient has history of paroxysmal atrial fibrillation presently in sinus rhythm. Cardizem is discontinued on amiodarone. Eliquis is also discontinued because of the risk of bleeding. Dr. Saleh is on board. 05/11/2019-patient is on amiodarone heart rate is 63 this morning. She is not a candidate for anticoagulation and not a candidate for sotalol because of the poor kidney function as per Dr. Saleh. (6) Type 2 diabetes mellitus with diabetic chronic kidney disease Qualifiers: Diabetes mellitus long-term insulin use: without long-term use Chronic kidney disease stage: stage 3 (moderate) Qualified Code(s): E11.22 - Type 2 diabetes mellitus with diabetic chronic kidney disease; N18.3 - Chronic kidney disease, stage 3 (moderate) Is this a current diagnosis for this admission?: No Plan: 05/10/2019 patient has history of chronic type 2 diabetes mellitus. Plan is to continue blood sugar monitoring before meals and at bedtime. Test blood sugar is 140. To check for hemoglobin A1c. 05/11/2019-hemoglobin A1c 6.5. Latest blood sugar is 101. Diet exercise weight loss lifestyle modifications discussed with the patient. (7) Obesity Is this a current diagnosis for this admission?: No - Additional Information Resuscitation Status: Full Code Discharge Diet: Diabetic Discharge Activity: Activity As Tolerated Referrals: MEKA MCKINNON MD [Primary Care Provider] - 05/14/19 9:45 am KRISTA SALEH MD [ACTIVE STAFF] - Jessica DE ANDA MD [ACTIVE STAFF] - 06/06/19 3:00 pm Prescriptions: Amiodarone HCl [Pacerone] 200 mg PO DAILY #30 tablet Pantoprazole Sodium [Protonix [address] Tablet] 40 mg PO BID@0600,1700 30 Days #30 tablet. Home Medications: Atorvastatin Calcium [Lipitor 40 mg Tablet] 40 mg PO QHS 05/15/18 Furosemide [Lasix 20 mg Tablet] 20 mg PO QAM 05/15/18 Montelukast Sodium [Singulair 10 mg Tablet] 10 mg PO QPM 05/15/18 Nitroglycerin [Nitrostat 0.4 mg (1/150 Gr) Tabs 25/Bottle] 0.4 mg SL Q5MP PRN 05/15/18 Cyanocobalamin (Vitamin B-12) [Vitamin B-12 1000 mcg Tablet] 1,000 mcg PO DAILY #90 tablet 05/20/18 Hum Insulin NPH/Reg Insulin Hm [Insulin 70-30 (NPH/Reg) 100 unit/mL] 30 unit SUBCUT BID #20 ml 05/20/18 Losartan Potassium [Cozaar 100 mg Tablet] 100 mg PO QAM #90 05/20/18 Amiodarone HCl [Pacerone] 200 mg PO DAILY #30 tablet 05/12/19 Aspirin [Ecotrin 81 mg EC Tablet] 81 mg PO DAILY tabec 05/12/19 Pantoprazole Sodium [Protonix [address] Tablet] 40 mg PO BID@0600,1700 30 Days #30 tablet. 05/12/19 History of Present Illiness History of Present Illness: TICO NG is a 69 year old female 9 year old female past medical history of CAD status post PCI x1 stent in 2006, hyperlipidemia, GERD, paroxysmal A. fib on Eliquis, hypertension, diabetes, AV malformation status post endoscopic cauterization was sent to ED from PCPs office for evaluation of dizziness and anemia. And has been having worsening dyspnea on exertion, associated with lightheadedness, presyncope, and occasional substernal pressure-like chest pain for the last 2 to 3 weeks worsening in the last 1 week. She had routine blood work on 04/29/2019 and her hemoglobin was 7.5 Bactrim. Today when she went to see Dr. Mckinnon her PCP she was sent to ED for further evaluation. Patient states that her last colonoscopy/endoscopy was somewhere between 6 months to 1 year ago and she had polyps removed at that point in time and also has had endoscopic cauterization of her AV malformation in the past. In ED she was noted to be tachypneic, very pale, with hemoglobin of 8.3, creatinine of 1.36 and guaiac positive stool. EKG was sinus rhythm and troponin was negative. ED physician had contacted Dr. Aldana from surgery and he has suggested for patient to be admitted made n.p.o. for possible endoscopy tomorrow. Hospital Course Hospital Course: 69 year old female past medical history of CAD status post PCI x1 stent in 2006, hyperlipidemia, GERD, paroxysmal A. fib on Eliquis, hypertension, diabetes, AV malformation status post endoscopic cauterization was sent to ED from PCPs office for evaluation of dizziness and anemia. And has been having worsening dyspnea on exertion, associated with lightheadedness, presyncope, and occasional substernal pressure-like chest pain for the last 2 to 3 weeks worsening in the last 1 week. She had routine blood work on 04/29/2019 and her hemoglobin was 7.5 Bactrim. Today when she went to see Dr. Mckinnon her PCP she was sent to ED for further evaluation. Patient states that her last colonoscopy/endoscopy was somewhere between 6 months to 1 year ago and she had polyps removed at that point in time and also has had endoscopic cauterization of her AV malformation in the past. In ED she was noted to be tachypneic, very pale, with hemoglobin of 8.3, creatinine of 1.36 and guaiac positive stool. EKG was sinus rhythm and troponin was negative. ED physician had contacted Dr. Aldana from surgery and he has suggested for patient to be admitted made n.p.o. for possible endoscopy tomorrow. 05/07/2019. No acute events overnight. Patient is status post upper GI en doscopy with finding of severe distal esophagitis. Patient comfortably sitting in bed in no apparent distress. Denies any fever, chills, nausea, vomiting, diarrhea, constipation or any urinary symptoms. 05/08/2019. No acute events overnight. Denies any fever, chills, nausea, vomiting, diarrhea. Last bowel movement yesterday. Has not had any melena, hematochezia, hemoptysis or hematemesis. 05/09/2018. No acute events overnight. H&H stable. Patient is ambulatory with the help of PT. P.o. tolerant. Denies any fever, chills, nausea, vomiting, diarrhea, constipation or any urinary symptoms. Patient could be potentially discharged home however her renal function is worsening. 05/10/2019 no acute events in the last 24 hours. Afebrile. Today's labs are pending. Nephrology on board cardiology on board. Heart rate is close to 90s. In sinus rhythm. No complaints from the patient. Comfortably in the bed communicating well. 05/11/2019-no acute events in the last 24 hours. Afebrile. Patient is presently on amiodarone heart rate in the 60s. Comfortable in the bed communicating well. Not in distress. Chest x-ray was done yesterday negative for pulmonary edema. Creatinine improved to 1.38. Patient is not presently on IV fluids. Blood pressure is 130/55 today. 05/[id number]-old female with history of coronary artery disease status post stent placement 2006, paroxysmal atrial fibrillation on Eliquis, hypertension, diabetes mellitus, AV malformation status post 1 dose because radiation referred by PCP to the emergency room with complaints of dizziness and for evaluation of anemia. CT was done during this hospital stay and found to have a severe distal esophagitis. As per cardiology patient is not a candidate for Eliquis. Patient also found to be either acute on chronic kidney disease nephrology consult was done and the sotalol was withheld. Patient is going home on amiodarone 200 mg daily for atrial fibrillation rate control and patient was advised to follow-up with Dr. Saleh next week. Patient agreed with the discharge plan going home today. Prescription for amiodarone 200 mg p.o. daily for 1 month was given. Physical Exam Vital Signs: Temp Pulse Resp BP Pulse Ox 97.3 F 76 16 138/52 H 100 05/12/19 10:22 05/12/19 10:22 05/12/19 10:22 05/12/19 10:22 05/12/19 10:22 Intake & Output 05/11/19 05/12/19 05/13/19 06:59 06:59 06:59 Intake Total 1080 1480 Output Total 900 2300 Balance 180 -820 Weight 116.7 kg 116.7 kg General appearance: PRESENT: no acute distress, morbidly obese Head exam: PRESENT: atraumatic Eye exam: PRESENT: PERRLA Mouth exam: PRESENT: dry mucosa Teeth exam: PRESENT: poor dentation Neck exam: ABSENT: carotid bruit, JVD, lymphadenopathy, thyromegaly Respiratory exam: PRESENT: decreased breath sounds Cardiovascular exam: PRESENT: RRR. ABSENT: diastolic murmur, rubs, systolic murmur Pulses: PRESENT: normal dorsalis pedis pul GI/Abdominal exam: PRESENT: normal bowel sounds, soft. ABSENT: distended, guarding, mass, organolmegaly, rebound, tenderness Rectal exam: PRESENT: deferred Extremities exam: PRESENT: calf tenderness Neurological exam: PRESENT: alert, awake, oriented to person, oriented to place, oriented to time, oriented to situation, CN II-XII grossly intact. ABSENT: motor sensory deficit Psychiatric exam: PRESENT: appropriate affect, normal mood. ABSENT: homicidal ideation, suicidal ideation Skin exam: PRESENT: dry, intact, warm. ABSENT: cyanosis, rash Results Laboratory Results: WBC 5.7 10^3/uL (4.0-10.5) 05/11/19 04:33 RBC 3.27 10^6/uL (3.72-5.28) L 05/11/19 04:33 Hgb 9.0 g/dL (12.0-15.5) L 05/11/19 04:33 Hct 28.2 % (36.0-47.0) L 05/11/19 04:33 MCV 86 fl (80-97) 05/11/19 04:33 MCH 27.5 pg (27.0-33.4) 05/11/19 04:33 MCHC 32.0 g/dL (32.0-36.0) 05/11/19 04:33 RDW 15.8 % (11.5-14.0) H 05/11/19 04:33 Plt Count 197 10^3/uL (150-450) 05/11/19 04:33 Lymph % (Auto) 26.3 % (13-45) 05/11/19 04:33 Person % (Auto) 8.8 % (3-13) 05/11/19 04:33 Eos % (Auto) 2.6 % (0-6) 05/11/19 04:33 Baso % (Auto) 0.5 % (0-2) 05/11/19 04:33 Absolute Neuts (auto) 3.5 10^3/uL (1.7-8.2) 05/11/19 04:33 Absolute Lymphs (auto) 1.5 10^3/uL (0.5-4.7) 05/11/19 04:33 Absolute Monos (auto) 0.5 10^3/uL (0.1-1.4) 05/11/19 04:33 Absolute Eos (auto) 0.2 10^3/uL (0.0-0.6) 05/11/19 04:33 Absolute Basos (auto) 0.0 10^3/uL (0.0-0.2) 05/11/19 04:33 Seg Neutrophils % 61.8 % (42-78) 05/11/19 04:33 Platelet Estimate Cancelled 05/10/19 08:41 PT 15.3 SEC (11.4-15.4) 05/06/19 11:53 INR 1.20 05/06/19 11:53 Sodium 137.9 mmol/L (137-145) 05/11/19 04:33 Potassium 4.1 mmol/L (3.6-5.0) 05/11/19 04:33 Chloride 112 mmol/L (98-107) H 05/11/19 04:33 Carbon Dioxide 17 mmol/L (22-30) L 05/11/19 04:33 Anion Gap 9 (5-19) 05/11/19 04:33 BUN 26 mg/dL (7-20) H 05/11/19 04:33 Creatinine 1.38 mg/dL (0.52-1.25) H 05/11/19 04:33 Est GFR ( Amer) 46 (>60) L 05/11/19 04:33 Est GFR (MDRD) Non-Af 38 (>60) L 05/11/19 04:33 Glucose 97 mg/dL (75-110) 05/11/19 04:33 POC Glucose 96 mg/dL (70-110) 05/12/19 07:24 Hemoglobin A1c % 6.5 % (4.7-6.0) H 05/11/19 04:33 Calcium 8.8 mg/dL (8.4-10.2) 05/11/19 04:33 Magnesium 1.8 mg/dL (1.6-2.3) 05/11/19 04:33 Total Bilirubin 0.4 mg/dL (0.2-1.3) 05/11/19 04:33 Direct Bilirubin 0.2 mg/dL (0.0-0.4) 05/11/19 04:33 Neonat Total Bilirubin Not Reportable 05/11/19 04:33 Neonat Direct Bilirubin Not Reportable 05/11/19 04:33 Neonat Indirect Bili Not Reportable 05/11/19 04:33 AST 22 U/L (14-36) 05/11/19 04:33 ALT 19 U/L (<35) 05/11/19 04:33 Alkaline Phosphatase 74 U/L (38-126) 05/11/19 04:33 Troponin I < 0.012 ng/mL 05/06/19 17:43 Total Protein 5.6 g/dL (6.3-8.2) L 05/11/19 04:33 Albumin 3.1 g/dL (3.5-5.0) L 05/11/19 04:33 TSH 2.33 uIU/mL (0.47-4.68) 05/08/19 04:25 Free T4 1.20 ng/dL (0.78-2.19) 05/08/19 04:25 Free T3 pg/mL 3.31 pg/mL (2.77-5.27) 05/08/19 04:25 Urine Color YELLOW 05/06/19 12:00 Urine Appearance SLIGHTLY-CLOUDY 05/06/19 12:00 Urine pH 5.0 (5.0-9.0) 05/06/19 12:00 Ur Specific [place] 1.018 05/06/19 12:00 Urine Protein NEGATIVE mg/dL (NEGATIVE) 05/06/19 12:00 Urine Glucose (UA) NEGATIVE mg/dL (NEGATIVE) 05/06/19 12:00 Urine Ketones NEGATIVE mg/dL (NEGATIVE) 05/06/19 12:00 Urine Blood NEGATIVE (NEGATIVE) 05/06/19 12:00 Urine Nitrite NEGATIVE (NEGATIVE) 05/06/19 12:00 Urine Bilirubin NEGATIVE (NEGATIVE) 05/06/19 12:00 Urine Urobilinogen NEGATIVE mg/dL (<2.0) 05/06/19 12:00 Ur Leukocyte Esterase NEGATIVE (NEGATIVE) 05/06/19 12:00 Urine WBC (Auto) 0 /HPF 05/06/19 12:00 Urine RBC (Auto) 0 /HPF 05/06/19 12:00 U Hyaline Cast (Auto) 6 /LPF 05/06/19 12:00 Urine Bacteria (Auto) 1+ /HPF 05/06/19 12:00 Squamous Epi Cells Auto 8 /HPF 05/06/19 12:00 Urine Mucus (Auto) RARE /LPF 05/06/19 12:00 Urine Ascorbic Acid NEGATIVE (NEGATIVE) 05/06/19 12:00 POC Stool Occult Blood POSITIVE (NEGATIVE) 05/06/19 13:10 Slides for Path Review Cancelled 05/10/19 08:41 Blood Type A POSITIVE 05/06/19 11:53 Blood Type Confirm A POSITIVE 05/06/19 11:53 Antibody Screen NEGATIVE 05/06/19 11:53 Crossmatch See Detail 05/06/19 11:53 05/06/19 05/06/19 11:53 17:43 Troponin I < 0.012 < 0.012 Impressions: Chest X-Ray 05/06/19 11:11 IMPRESSION: NO ACUTE RADIOGRAPHIC FINDING IN THE CHEST. Chest X-Ray 05/10/19 00:00 IMPRESSION: No evidence of pulmonary edema or pleural effusion. Plan Plan of Treatment: Patient is advised to discontinue Eliquis and was started on amiodarone 200 mg p.o. daily for rate control. Medications instructions are provided to the patient at the time of discharge. Time Spent: Greater than 30 Minutes Stroke Is this a Stroke Patient?: No Acute Heart Failure - Is this a Heart Failure Patient?: No
== END 2019-05-12 11:12 | disposition home or self-care (01) | DRG 683 ==
LOC: ER 10:11 → EH 14:06 → INTOOBSV 14:06 → 4S 18:43 → 3N 21:04 → OBSVTOIN 05-09 14:30
PROVIDERS: ADMIT Internal Medicine; ATTEND Internal Medicine
PROC: 30233N1 Transfusion of Nonautologous Red Blood Cells into Peripheral Vein, Percutaneous Approach (ICD-10-PCS; 2019-05-06)
PROC: 0DB68ZX Excision of Stomach, Via Natural or Artificial Opening Endoscopic, Diagnostic (ICD-10-PCS; principal; 2019-05-07)
PROC: 3E02340 Introduction of Influenza Vaccine into Muscle, Percutaneous Approach (ICD-10-PCS; 2019-05-12)
DX: N17.9 Acute kidney failure, unspecified (principal); E87.2 Acidosis; I85.00 Esophageal varices without bleeding; Z68.42 Body mass index [BMI] 45.0-49.9, adult; D63.1 Anemia in chronic kidney disease; E11.22 Type 2 diabetes mellitus with diabetic chronic kidney disease; D50.0 Iron deficiency anemia secondary to blood loss (chronic); I48.0 Paroxysmal atrial fibrillation; I12.9 Hypertensive chronic kidney disease with stage 1 through stage 4 chronic kidney disease, or unspecified chronic kidney disease; N18.3 Chronic kidney disease, stage 3 (moderate); I25.10 Atherosclerotic heart disease of native coronary artery without angina pectoris; E78.5 Hyperlipidemia, unspecified; K21.9 Gastro-esophageal reflux disease without esophagitis; R19.5 Other fecal abnormalities; K20.9 Esophagitis, unspecified; E66.01 Morbid (severe) obesity due to excess calories; K44.9 Diaphragmatic hernia without obstruction or gangrene; M19.90 Unspecified osteoarthritis, unspecified site; R32 Unspecified urinary incontinence; Z96.653 Presence of artificial knee joint, bilateral; Z96.619 Presence of unspecified artificial shoulder joint; Z95.5 Presence of coronary angioplasty implant and graft; Z79.82 Long term (current) use of aspirin; Z79.4 Long term (current) use of insulin; Z79.01 Long term (current) use of anticoagulants; Z85.41 Personal history of malignant neoplasm of cervix uteri; Z88.6 Allergy status to analgesic agent; Z83.3 Family history of diabetes mellitus; Z82.49 Family history of ischemic heart disease and other diseases of the circulatory system; Q27.33 Arteriovenous malformation of digestive system vessel; Z86.010 Personal history of colon polyps; Z80.9 Family history of malignant neoplasm, unspecified
CPT/HCPCS: 36415; 36430; 43239; 71045; 71046; 80048; 80053; 80076; 81001; 82962; 83036; 83735; 84439; 84443; 84481; 84484; 85025; 85610; 86850; 86900; 86901; 86920; 88305; 88342; 90686; 93005; 93010; 96374; 99291; C9113; G0378; J0171; J1200; J1610; J1815; J2250; J2310; J2405; J3010; J3490; J7030; J7050; P9016

== ENCOUNTER 2019-07-03 08:02 | Outpatient (CLI) | payer MEDICARE, MEDICAID ==
[~2019-07-03 08:02] MED LIST changes: -DEXAMETHASONE SOD PHOSPHATE INJ 4 MG/1 ML VIAL ONE; +FERRIC CARBOXYMALTOSE 750 MG in NORMAL SALINE 250 ML IV PRN; -GLYCOPYRROLATE INJ 0.4 MG/2 ML VIAL ONE; -IBUPROFEN 800 MG/NS 250 ML IV PRN; -LANSOPRAZOLE 15 MG TAB.RAP.DR PO PRN; -LIDOCAINE 0.5% INJ-PF (5 MG/ML) 50 ML SDV SUBCUT PRN; -NEOSTIGMINE METHYLSULFATE 10 MG/10 ML VIAL ONE; -NORMAL SALINE 1000 ML (RENAL PATIENTS) IV PRN; -ONDANSETRON HCL INJ/PF 4 MG/2 ML SDV ONE; -OXYCODONE HCL SR 10 MG TABLET PO PRN; -ROCURONIUM BROMIDE INJ 50 MG/5 ML VIAL IV ONE; -SUCCINYLCHOLINE CHLORIDE INJ 200 MG/10 ML VIAL ONE; -VANCOMYCIN HCL 1,000 MG in DEXTROSE 5%-WATER 250 ML IV PRN
[2019-07-03 08:16] VITALS: BP 144/80
== END 2019-07-03 09:35 | disposition home or self-care (01) ==
LOC: II 08:02 → 5TH 08:03 → II 09:35
PROVIDERS: ATTEND Internal Medicine Nephrology
DX: D50.8 Other iron deficiency anemias (principal)
CPT/HCPCS: 96365; J7050; J1439

== ENCOUNTER 2019-07-11 07:47 | Outpatient (CLI) | payer MEDICARE, MEDICAID ==
[2019-07-11 07:59] VITALS: BP 150/69
== END 2019-07-11 08:53 | disposition home or self-care (01) ==
LOC: II 07:47 → 5TH 07:50 → II 08:53
PROVIDERS: ATTEND Internal Medicine Nephrology
DX: D50.8 Other iron deficiency anemias (principal)
CPT/HCPCS: 96365; J7050; J1439

== ENCOUNTER → 2020-02-17 | Outpatient (CLI) | payer MEDICARE, MEDICAID ==
[2020-02-17 13:57] LABS: ABSOLUTE EOSINOPHILS # (AUTO) 0.1 10^3/uL (0.0-0.6); ABSOLUTE LYMPHOCYTES (AUTO) 1.1 10^3/uL (0.5-4.7); ABSOLUTE MONOCYTES (AUTO) 0.5 10^3/uL (0.1-1.4); ABSOLUTE NEUT (AUTO) 4.7 10^3/uL (1.7-8.2); BASOPHILS % (AUTO) 0.6 % (0-2); EOSINOPHILS % (AUTO) 1.5 % (0-6); HEMATOCRIT 35.1 % (36.0-47.0); HEMOGLOBIN 11.5 g/dL (12.0-15.5); MEAN CORPUSCULAR HEMOGLOBIN 27.6 pg (27.0-33.4); MEAN CORPUSCULAR HGB CONC 32.7 g/dL (32.0-36.0); MEAN CORPUSCULAR VOLUME 84 fl (80-97); MONOCYTES % (AUTO) 8.5 % (3-13); PLATELET COUNT 223 10^3/uL (150-450); RED BLOOD COUNT 4.16 10^6/uL (3.72-5.28); RED CELL DISTRIBUTION WIDTH 16.2 % (11.5-14.0); SEGMENTED NEUTROPHILS % (AUTO) 72.4 % (42-78); TOTAL CELLS COUNTED % (AUTO) 100 %; WHITE BLOOD COUNT 6.4 10^3/uL (4.0-10.5)
== END ==
LOC: OD 13:10
PROVIDERS: ATTEND Specialist
DX: I25.10 Atherosclerotic heart disease of native coronary artery without angina pectoris (principal); I12.9 Hypertensive chronic kidney disease with stage 1 through stage 4 chronic kidney disease, or unspecified chronic kidney disease; N18.30 Chronic kidney disease, stage 3 unspecified; E11.22 Type 2 diabetes mellitus with diabetic chronic kidney disease; E78.49 Other hyperlipidemia; D64.9 Anemia, unspecified; I48.0 Paroxysmal atrial fibrillation; Z98.61 Coronary angioplasty status; I34.0 Nonrheumatic mitral (valve) insufficiency; K92.2 Gastrointestinal hemorrhage, unspecified; Q27.33 Arteriovenous malformation of digestive system vessel; R01.1 Cardiac murmur, unspecified; R06.09 Other forms of dyspnea; R94.31 Abnormal electrocardiogram [ECG] [EKG]; Z79.899 Other long term (current) drug therapy
CPT/HCPCS: 36415; 85025

== ENCOUNTER 2020-04-06 12:11 | Observation (INO) | payer MEDICARE, MEDICAID ==
--- NOTE | 2020-04-06 13:26 | ER Document Report ---
ED Medical Screen (RME) - General Chief Complaint: Cold Symptoms Stated Complaint: COUGH Time Seen by Provider: 04/06/20 13:21 Primary Care Provider: KRISTA SALEH MD [Primary Care Provider] - Follow up as needed Mode of Arrival: Ambulatory Information source: Patient Notes: 70-year-old female presents to ED for complaint of cough congestion fever body aches shortness of breath dizziness and more frequent falling. She states her last fever will that she knows of was 101 3 days ago. She states she last fell about a week ago. She states she did have a Covid test several months ago but nothing recently. She is alert and oriented she is coughing with a moist cough. We will get the Covid test with the flu strep urine and chest x-ray and she will be seen by another provider to have an extensive cardiac history we will get a EKG as well. I have greeted and performed a rapid initial assessment of this patient. A comprehensive ED assessment and evaluation of the patient, analysis of test results and completion of medical decision making process will be conducted by an additional ED providers. TRAVEL OUTSIDE OF THE [place] IN LAST 30 DAYS: No - Related Data Allergies/Adverse Reactions: codeine [Codeine] Allergy (Intermediate, Verified 05/15/18 10:17) GI upset Past Medical History - General Information source: Patient - Social History Cigarette use (# per day): No Chew tobacco use (# tins/day): No Frequency of alcohol use: None Drug Abuse: None Lives with: Family Family history: Reviewed & Not Pertinent - Past Medical History Cardiac Medical History: Reports: Hx Atrial Fibrillation, Hx Coronary Artery Disease - stent few years ago, Hx Hypercholesterolemia, Hx Hypertension, Hx Heart Murmur - states SBE prophylaxis required Pulmonary Medical History: Reports: Hx Bronchitis - frequency has decreased, no longer exposed to 2nd smoke EENT Medical History: Reports: None Neurological Medical History: Reports: None Endocrine Medical History: Reports: Hx Diabetes Mellitus Type 2 Renal/ Medical History: Reports: Hx Kidney Stones - 2011, denies surgical intervention Malignancy Medical History: Reports: Other - Uterine cancer GI Medical History: Reports: Hx Gastroesophageal Reflux Disease - meds x 4 years, Hx Colonoscopy, Hx Endoscopy Musculoskeltal Medical History: Reports Hx Arthritis, Reports Hx Musculoskeletal Deformity, Reports Hx Musculoskeletal Trauma Skin Medical History: Reports None Psychiatric Medical History: Reports: None Traumatic Medical History: Reports: None Infectious Medical History: Reports: None. Denies: Hx HIV Past Surgical History: Reports: Hx Cardiac Catheterization - 1 stent, Hx Cholecystectomy, Hx Coronary Stent, Hx Hysterectomy, Hx Orthopedic Surgery - bilateral knee replacement, shoulder replacement, Other - Watchman procedure - Immunizations Immunizations up to date: No Hx Diphtheria, Pertussis, Tetanus Vaccination: No Physical Exam - Vital signs Vitals: Temp Pulse Resp BP Pulse Ox 98.8 F 88 16 155/70 H 97 04/06/20 12:33 04/06/20 12:33 04/06/20 12:33 04/06/20 12:33 04/06/20 12:33 Course - Vital Signs Vital signs: Temp Pulse Resp BP Pulse Ox 98.8 F 88 16 155/70 H 97 04/06/20 12:33 04/06/20 12:33 04/06/20 12:33 04/06/20 12:33 04/06/20 12:33 Doctor's Discharge - Discharge Referrals: KRISTA SALEH MD [Primary Care Provider] - Follow up as needed
--- NOTE | 2020-04-06 14:07 | EKG REPORT ---
SEVERITY:- ABNORMAL ECG - SINUS BRADYCARDIA LEFT VENTRICULAR HYPERTROPHY : Confirmed by: Davie Bueno MD 06-Apr-2020 14:06:40
--- NOTE | 2020-04-06 14:16 | RADIOLOGY REPORT (SQ) ---
EXAM DESCRIPTION: CHEST SINGLE VIEW IMAGES COMPLETED DATE/TIME: 04/06/2020 2:05 pm REASON FOR STUDY: Cough congestion body aches intermittent fever sob COMPARISON: 05/10/2019 EXAM PARAMETERS: NUMBER OF VIEWS: One view. TECHNIQUE: Single frontal radiographic view of the chest acquired. RADIATION DOSE: NA LIMITATIONS: None. FINDINGS: LUNGS AND PLEURA: No opacities, masses or pneumothorax. No pleural effusion. MEDIASTINUM AND HILAR STRUCTURES: No masses. Contour normal. HEART AND VASCULAR STRUCTURES: Heart normal in size. Normal vasculature. BONES: Postsurgical changes in both shoulders. HARDWARE: None in the chest. OTHER: No other significant finding. IMPRESSION: NO ACUTE RADIOGRAPHIC FINDING IN THE CHEST. TECHNICAL DOCUMENTATION: JOB ID: [id number] [employer]- All Rights Reserved Reading location - IP/workstation name: [email or web address]
[2020-04-06 17:19] LABS: A TYPE INFLUENZA AG NEGATIVE (NEGATIVE); B INFLUENZA AG NEGATIVE (NEGATIVE)
[2020-04-06 17:20] LABS: ABSOLUTE EOSINOPHILS # (AUTO) 0.2 10^3/uL (0.0-0.6); ABSOLUTE LYMPHOCYTES (AUTO) 1.5 10^3/uL (0.5-4.7); ABSOLUTE MONOCYTES (AUTO) 0.5 10^3/uL (0.1-1.4); ABSOLUTE NEUT (AUTO) 4.7 10^3/uL (1.7-8.2); BASOPHILS % (AUTO) 0.7 % (0-2); EOSINOPHILS % (AUTO) 2.6 % (0-6); HEMATOCRIT 35.9 % (36.0-47.0); HEMOGLOBIN 11.4 g/dL (12.0-15.5); LYMPHOCYTES % (AUTO) 21.2 % (13-45); MEAN CORPUSCULAR HEMOGLOBIN 26.5 pg (27.0-33.4); MEAN CORPUSCULAR HGB CONC 31.8 g/dL (32.0-36.0); MEAN CORPUSCULAR VOLUME 83 fl (80-97); MONOCYTES % (AUTO) 6.7 % (3-13); PLATELET COUNT 175 10^3/uL (150-450); RED BLOOD COUNT 4.31 10^6/uL (3.72-5.28); RED CELL DISTRIBUTION WIDTH 18.5 % (11.5-14.0); SEGMENTED NEUTROPHILS % (AUTO) 68.8 % (42-78); TOTAL CELLS COUNTED % (AUTO) 100 %; WHITE BLOOD COUNT 6.9 10^3/uL (4.0-10.5)
--- NOTE | 2020-04-06 17:28 | ER Document Report ---
ED General - General Chief Complaint: Cough Stated Complaint: COUGH Time Seen by Provider: 04/06/20 13:21 Primary Care Provider: KRISTA SALEH MD [ACTIVE STAFF] - Follow up as needed Mode of Arrival: Ambulatory TRAVEL OUTSIDE OF THE [place] IN LAST 30 DAYS: No - HPI Notes: Patient is a 70-year-old female with a history of hypertension, insulin-depend ent diabetes, a-fib, and cardiac stents who presents with chest pain, shortness of breath, and cough for the past 3 weeks. She also reports 3 syncopal episodes in the last 3 weeks where she became lightheaded and dizzy and then passed out for a brief amount of time. She states on one event she did hit her head but denies any nausea, vomiting, and headache. She reports diarrhea and sore throat that began yesterday, but denies fever, dysuria, and abdominal pain. Patient denies taking any blood thinners at this time. - Related Data Allergies/Adverse Reactions: codeine [Codeine] Allergy (Intermediate, Verified 04/06/20 16:22) GI upset Past Medical History - General Information source: Patient - Social History Smoking Status: Never Smoker Cigarette use (# per day): No Chew tobacco use (# tins/day): No Frequency of alcohol use: None Drug Abuse: None Lives with: Family Family History: CAD, CVA, DM, Hypertension, Malignancy Patient has homicidal ideation: No - Past Medical History Cardiac Medical History: Reports: Hx Atrial Fibrillation, Hx Coronary Artery Disease - stent few years ago, Hx Hypercholesterolemia, Hx Hypertension, Hx Heart Murmur - states SBE prophylaxis required Pulmonary Medical History: Reports: Hx Bronchitis - frequency has decreased, no longer exposed to 2nd smoke EENT Medical History: Reports: None Neurological Medical History: Reports: None Endocrine Medical History: Reports: Hx Diabetes Mellitus Type 2 Renal/ Medical History: Reports: Hx Kidney Stones - 2011, denies surgical intervention Malignancy Medical History: Reports: Other - Uterine cancer GI Medical History: Reports: Hx Gastroesophageal Reflux Disease - meds x 4 years, Hx Colonoscopy, Hx Endoscopy Musculoskeletal Medical History: Reports Hx Arthritis, Reports Hx Musculoskeletal Deformity, Reports Hx Musculoskeletal Trauma Skin Medical History: Reports None Psychiatric Medical History: Reports: None Traumatic Medical History: Reports: None Infectious Medical History: Reports: None. Denies: Hx HIV Past Surgical History: Reports: Hx Cardiac Catheterization - 1 stent, Hx Cholecystectomy, Hx Coronary Stent, Hx Hysterectomy, Hx Orthopedic Surgery - bilateral knee replacement, shoulder replacement, Other - Watchman procedure - Immunizations Immunizations up to date: No Hx Diphtheria, Pertussis, Tetanus Vaccination: No Hx Pneumococcal Vaccination: 05/08/09 Review of Systems - Review of Systems Constitutional: No symptoms reported EENT: No symptoms reported Cardiovascular: See HPI Respiratory: See HPI Gastrointestinal: See HPI Genitourinary: No symptoms reported Female Genitourinary: No symptoms reported Musculoskeletal: No symptoms reported Skin: No symptoms reported Hematologic/Lymphatic: No symptoms reported Neurological/Psychological: No symptoms reported Physical Exam - Vital signs Vitals: Temp Pulse Resp BP Pulse Ox 98.8 F 88 16 155/70 H 97 04/06/20 12:33 04/06/20 12:33 04/06/20 12:33 04/06/20 12:33 04/06/20 12:33 - Notes Notes: PHYSICAL EXAMINATION: VITALS: Vitals reviewed and within normal limits. GENERAL: Well-appearing, well-nourished and in no acute distress. HEAD: Atraumatic, normocephalic. EYES: Pupils equal, round, and reactive to light, extraocular movements intact, sclera anicteric, conjunctiva are normal. ENT: Nares patent. Moist mucous membranes. Oropharynx clear without exudates. NECK: Normal range of motion, supple without lymphadenopathy. LUNGS: Breath sounds clear to auscultation bilaterally and equal. No wheezes, rales, or rhonchi. HEART: Regular, rate, and rhythm without murmurs. ABDOMEN: Soft, nontender, normoactive bowel sounds. No guarding, no rebound. No masses appreciated. EXTREMITIES: Normal range of motion, edema to bilateral lower extremities, nonpitting. No cyanosis. NEUROLOGICAL: No focal neurological deficits. Moves all extremities spontaneously and on command. PSYCH: Normal mood, normal affect. SKIN: Warm, Dry, normal turgor, no rashes or lesions noted. Course - Re-evaluation Re-evalutation: Patient is a 70-year-old female with a history of hypertension, DM, afib, and cardiac stents who presents with chest pain, shortness of breath and cough for the past 3 weeks. She also has had 3 syncopal episodes in the last 3 weeks. Patient is mildly hypertensive with a BP of 155/70 but vital signs are otherwise unremarkable. On exam, lungs are clear to auscultation bilaterally and heart rate and rhythm are regular. CBC shows minimally low hemoglobin of 11.4. CMP shows a mildly elevated creatinine of 1.31. Troponin is negative. Rapid flu and strep swabs are negative. Covid swab is pending. Chest x-ray and head CT are negative. proBNP and UA are pending. 04/06/20 17:52 I consulted my supervising physician, Dr. Haines, concerning this patient. Since the patient is 70 y/o with three syncopal episodes with no known cause she recommends admitting the patient to rule out arrhythmia. 04/06/20 18:[address] Hatch, hospitalist, concerning his patient. She agrees to accept the patient for observation and the patient will be admitted to the telemetry floor. - Vital Signs Vital signs: Temp Pulse Resp BP Pulse Ox 98.5 F 84 17 142/72 H 99 04/06/20 17:54 04/06/20 17:54 04/06/20 17:54 04/06/20 17:54 04/06/20 17:54 - Laboratory Result Diagrams: 04/06/20 17:00 04/06/20 17:00 Laboratory results interpreted by me: 04/06/20 04/06/20 17:00 17:00 Hgb 11.4 L Hct 35.9 L MCH 26.5 L MCHC 31.8 L RDW 18.5 H BUN 22 H Creatinine 1.31 H Est GFR ( Amer) 49 L Est GFR (MDRD) Non-Af 40 L - Diagnostic Test Radiology reviewed: Reports reviewed Radiology results interpreted by me: Chest X-Ray 04/06/20 13:27 IMPRESSION: NO ACUTE RADIOGRAPHIC FINDING IN THE CHEST. Head CT 04/06/20 16:52 IMPRESSION: NORMAL BRAIN CT WITHOUT CONTRAST. EVIDENCE OF ACUTE STROKE: NO. - EKG Interpretation by Me Additional EKG results interpreted by me: Sinus bradycardia with a rate of 55. QTc 471. Normal axis. No T wave inversions or ST segment changes in consecutive leads. Discharge - Discharge Clinical Impression: Cough, Shortness of breath Chest pain Qualifiers: Chest pain type: unspecified Qualified Code(s): R07.9 - Chest pain, unspecified Syncope Qualifiers: Syncope type: unspecified Qualified Code(s): R55 - Syncope and collapse Condition: Stable Disposition: ADMITTED OBSERVATION Admitting Provider: Mamie (Hospitalist) Unit Admitted: Telemetry Referrals: KRISTA SALEH MD [ACTIVE STAFF] - Follow up as needed
[2020-04-06 17:39] LABS: ALBUMIN 4.2 g/dL (3.5-5.0); ALKALINE PHOSPHATASE 110 U/L (38-126); ANION GAP 8 (5-19); ASPARTATE AMINO TRANSFERASE 32 U/L (14-36); BILIRUBIN,DIRECT 0.1 mg/dL (0.0-0.4); BILIRUBIN,TOTAL 0.7 mg/dL (0.2-1.3); BLOOD UREA NITROGEN 22 mg/dL (7-20); CALCIUM 9.4 mg/dL (8.4-10.2); CARBON DIOXIDE 27 mmol/L (22-30); CHLORIDE 105 mmol/L (98-107); CREATINE KINASE 109 U/L (30-135); GLUCOSE 104 mg/dL (75-110); POTASSIUM 4.2 mmol/L (3.6-5.0); TOTAL PROTEIN 7.4 g/dL (6.3-8.2)
--- NOTE | 2020-04-06 17:43 | RADIOLOGY REPORT (SQ) ---
EXAM DESCRIPTION: CT HEAD WITHOUT IMAGES COMPLETED DATE/TIME: 04/06/2020 5:12 pm REASON FOR STUDY: syncope and head injury COMPARISON: 07/16/2018 TECHNIQUE: Axial images acquired through the brain without intravenous contrast. Images reviewed wi th bone, brain and subdural windows. Additional sagittal and coronal reconstructions were generated. Images stored on PACS. All CT scanners at this facility use dose modulation, iterative reconstruction, and/or weight based d osing when appropriate to reduce radiation dose to as low as reasonably achievable (ALARA). [facility]: Dose Right [facility]: CareDose [facility]: Dose Right [facility]: Teradose 4D [facility]: Smart Cerelink RADIATION DOSE: CT Rad equipment meets quality standard of care and radiation dose reduction techniq ues were employed. CTDIvol: 53.2 mGy. DLP: 937 mGy-cm. mGy. LIMITATIONS: None. FINDINGS: VENTRICLES: Normal size and contour. CEREBRUM: No masses. No hemorrhage. No midline shift. No evidence for acute infarction. Normal gra y/white matter differentiation. No areas of low density in the white matter. CEREBELLUM: No masses. No hemorrhage. No alteration of density. No evidence for acute infarction. EXTRAAXIAL SPACES: No fluid collections. No masses. ORBITS AND GLOBE: No intra- or extraconal masses. Normal contour of globe without masses. CALVARIUM: No fracture. PARANASAL SINUSES: No fluid or mucosal thickening. SOFT TISSUES: No mass or hematoma. OTHER: No other significant finding. IMPRESSION: NORMAL BRAIN CT WITHOUT CONTRAST. EVIDENCE OF ACUTE STROKE: NO. COMMENT: Quality ID # [id number]: Final reports with documentation of one or more dose reduction techniques (e.g., Automated exposure control, adjustment of the mA and/or kV according to patient size, use of iterative reconstruction technique) TECHNICAL DOCUMENTATION: JOB ID: [id number] 2010 [employer]- All Rights Reserved Reading location - IP/workstation name: [email or web address]
[2020-04-06] MEDS ORDERED: GLUCAGON,HUMAN RECOMB 1 MG INJ IM PRN (20:17)
[2020-04-06] MEDS ORDERED: DEXTROSE 40% GEL 15 GM TUBE PO PRN ×2 (20:17)
[2020-04-06] MEDS ORDERED: DEXTROSE 50%-WATER 25 GM/50 ML DISP.SYRIN IV PRN ×2 (20:17)
--- NOTE | 2020-04-06 20:40 | PDOC H&P ---
History of Present Illness Admission Date/PCP: 04/06/20 18:36 MEKA ESQUIVEL MD History of Present Illness: TICO NG is a 70 year old female with multiple medical problems but she does not know what most of them are. She knows that she has diabetes because she takes insulin, and she thinks she has atrial fibrillation but she does not know of any medicine she takes to keep her heart rate under control. She knows that she had a watchman procedure done because she had bleeding from the blood thinner she was once on. She comes in today for a constellation of poorly described symptoms. She has had a cough for about 3 weeks that is been nonproductive. She only coughed once the whole time I was in the room with her. She is not been running a fever. All of her vital signs were normal and her SPO2 was in the upper 90s on room air. She was not short of breath. She has not experienced any shortness of breath. Her chest x-ray was normal. She says that in the past couple of weeks she has had dizzy spells where she passed out. She said that she had been standing and it was not getting up from a seated position when this happened. She did not describe any symptoms that sound like palpitations, but she said that she just felt dizzy and then fell. She says she felt like she blacked out for just a second but she never had any sort of sensation of encephalopathy after the fact. EKG showed sinus bradycardia with a rate in the upper 50s. This patient was an extremely poor historian. Past Medical History Cardiac Medical History: Reports: Atrial Fibrillation, Coronary Artery Disease - stent few years ago, Hyperlipidema, Hypertension, Heart Murmur - states SBE prophylaxis required Pulmonary Medical History: Reports: Bronchitis - frequency has decreased, no longer exposed to 2nd smoke EENT Medical History: Reports: None Neurological Medical History: Reports: None Endocrine Medical History: Reports: Diabetes Mellitus Type 2 Malignancy Medical History: Reports: Other - Uterine cancer GI Medical History: Reports: Gastroesophageal Reflux Disease - meds x 4 years Musculoskeltal Medical History: Reports: Arthritis Skin Medical History: Reports: None Psychiatric Medical History: Reports: None Traumatic Medical History: Reports: None Hematology: Reports: Anemia Denies: Hemophilia, Sickle Cell Disease Infectious Medical History: Reports: None Denies: HIV Past Surgical History Past Surgical History: Reports: Cardiac Catheterization - 1 stent, Cholecystectomy, Coronary Stent, Hysterectomy, Orthopedic Surgery - bilateral knee replacement, shoulder replacement, Other - Watchman procedure Denies: Amputation Social History Lives with: Family Smoking Status: Never Smoker Frequency of Alcohol Use: None Hx Recreational Drug Use: No Drugs: Cocaine Hx Prescription Drug Abuse: No Family History Family History: CAD, CVA, DM, Hypertension, Malignancy Parental Family History Reviewed: Yes Children Family History Reviewed: Yes Sibling(s) Family History Reviewed.: Yes Medication/Allergy Home Medications: Atorvastatin Calcium [Lipitor 40 mg Tablet] 40 mg PO QHS 05/15/18 Furosemide [Lasix 20 mg Tablet] 20 mg PO QAM 05/15/18 Montelukast Sodium [Singulair 10 mg Tablet] 10 mg PO QPM 05/15/18 Cyanocobalamin (Vitamin B-12) [Vitamin B-12 1000 mcg Tablet] 1,000 mcg PO DAILY #90 tablet 05/20/18 Losartan Potassium [Cozaar 100 mg Tablet] 100 mg PO QAM #90 05/20/18 Amiodarone HCl [Pacerone] 200 mg PO DAILY #30 tablet 05/12/19 Aspirin [Ecotrin 81 mg EC Tablet] 81 mg PO DAILY tabec 05/12/19 Pantoprazole Sodium [Protonix [address] Tablet] 40 mg PO BID@0600,1700 30 Days #30 tablet.dr 05/12/19 Duloxetine HCl [Cymbalta] 60 mg PO DAILY 04/06/20 Felodipine [Felodipine ER] 5 mg PO DAILY 04/06/20 Ferrous Sulfate [Feosol 325 mg Tablet] 325 mg PO DAILY 04/06/20 Gabapentin [Neurontin 300 mg Capsule] 300 mg PO Q8 04/06/20 Hum Insulin NPH/Reg Insulin Hm [Insulin 70-30 (NPH/Reg) 100 unit/mL] 40 unit SUBCUT BID 04/06/20 Allergies/Adverse Reactions: codeine [Codeine] Allergy (Intermediate, Verified 04/06/20 16:22) GI upset Review of Systems All systems: reviewed and no additional remarkable complaints except as stated - All systems were reviewed and were negative except as noted in the HPI Physical Exam Vital Signs: Temp Pulse Resp BP Pulse Ox 98.7 F 80 16 138/76 H 99 04/06/20 20:05 04/06/20 20:05 04/06/20 20:05 04/06/20 20:05 04/06/20 20:05 Intake & Output 04/05/20 04/06/20 04/07/20 06:59 06:59 06:59 Weight 97.522 kg General appearance: PRESENT: no acute distress, cooperative, disheveled, morbidly obese Head exam: PRESENT: atraumatic, normocephalic Eye exam: PRESENT: EOMI, PERRLA. ABSENT: conjunctival injection, nystagmus, scleral icterus Ear exam: PRESENT: normal external ear exam Mouth exam: PRESENT: moist, neck supple Neck exam: PRESENT: full ROM. ABSENT: carotid bruit, JVD, lymphadenopathy, meningismus, tenderness, thyromegaly Respiratory exam: PRESENT: clear to auscultation giuliano, symmetrical, unlabored. ABSENT: accessory muscle use, chest wall tenderness, crackles, prolonged expiratory phas, rhonchi, tachypnea, wheezes Cardiovascular exam: PRESENT: bradycardia, +S1, +S2 Pulses: PRESENT: normal carotid pulses Vascular exam: PRESENT: normal capillary refill GI/Abdominal exam: PRESENT: normal bowel sounds, soft, other - Pendulous abdominal pannus. ABSENT: distended, guarding, rebound, tenderness Extremities exam: ABSENT: clubbing, pedal edema Musculoskeletal exam: PRESENT: ambulatory, normal inspection. ABSENT: deformity Neurological exam: PRESENT: awake, oriented to person, oriented to place, oriented to situation, CN II-XII grossly intact. ABSENT: motor sensory deficit Psychiatric exam: PRESENT: flat affect Skin exam: PRESENT: dry, warm Results Laboratory Results: 04/06/20 17:00 04/06/20 17:00 04/06/20 04/06/20 17:00 17:00 WBC 6.9 RBC 4.31 Hgb 11.4 L Hct 35.9 L MCV 83 MCH 26.5 L MCHC 31.8 L RDW 18.5 H Plt Count 175 Seg Neutrophils % 68.8 Sodium 139.7 Potassium 4.2 Chloride 105 Carbon Dioxide 27 Anion Gap 8 BUN 22 H Creatinine 1.31 H Est GFR ( Amer) 49 L Glucose 104 Calcium 9.4 Total Bilirubin 0.7 AST 32 Alkaline Phosphatase 110 Total Protein 7.4 Albumin 4.2 04/06/20 04/06/20 04/06/20 17:00 17:00 17:00 Creatine Kinase 109 Troponin I < 0.012 NT-Pro-B Natriuret Pep 713 H Impressions: Chest X-Ray 04/06/20 13:27 IMPRESSION: NO ACUTE RADIOGRAPHIC FINDING IN THE CHEST. Head CT 04/06/20 16:52 IMPRESSION: NORMAL BRAIN CT WITHOUT CONTRAST. EVIDENCE OF ACUTE STROKE: NO. Assessment and Plan - Diagnosis (1) Syncope Qualifiers: Syncope type: unspecified Qualified Code(s): R55 - Syncope and collapse Is this a current diagnosis for this admission?: Yes (2) Cough Is this a current diagnosis for this admission?: Yes (3) CAD (coronary artery disease) Qualifiers: Coronary Disease-Associated Artery/Lesion type: [place] artery [place] vs. transplanted heart: [place] heart Associated angina: without angina Qualified Code(s): I25.10 - Atherosclerotic heart disease of [place] coronary artery without angina pectoris Is this a current diagnosis for this admission?: Yes (4) Essential (primary) hypertension Is this a current diagnosis for this admission?: Yes (5) Obesity Qualifiers: Obesity type: due to excess calories Obesity classification: adult class 2 (BMI 35 - 39.9) Serious obesity comorbidity presence: with serious comorbidity Body mass index: BMI 38.0-38.9 Qualified Code(s): E66.01 - Morbid (severe) obesity due to excess calories; Z68.38 - Body mass index [BMI] 38.0-38.9, adult Is this a current diagnosis for this admission?: Yes (6) Paroxysmal atrial fibrillation Is this a current diagnosis for this admission?: Yes (7) Type 2 diabetes mellitus with diabetic chronic kidney disease Qualifiers: Diabetes mellitus medical terminologist insulin use: with medical terminologist use Chronic kidney disease stage: stage 3 (moderate) Chronic kidney disease stage 3 subtype: st age 3a (GFR 45-59) Qualified Code(s): E11.21 - Type 2 diabetes mellitus with diabetic nephropathy; N18.31 - Chronic kidney disease, stage 3a; Z79.4 - [facility] (current) use of insulin Is this a current diagnosis for this admission?: Yes - Plan Summary Summary: Her cough has been going on for 3 weeks, does not seem very severe at all, and there are no worrisome signs on her work-up or examination that would dictate the need for further intervention. For the syncope, were going to keep her on telemetry overnight and get an echocardiogram in the morning. If these are unremarkable, we will have her follow-up with her wafer substrate tester Dr. Day to get a Holter monitor. I have encouraged her to get a list of her medications from her daughter so that we can get her on her usual medication. She does take insulin at home but she does not know what the name of it is or how much of it she takes. We will keep her on a sliding scale for now. - Time Time Spent with patient: 25-34 minutes Anticipated Discharge Disposition: Home, Self Care Anticipated Discharge Timeframe: within 48 hours
[2020-04-06 22:39] LABS: APPEARANCE,URINE CLOUDY; BILIRUBIN,URINE NEGATIVE (NEGATIVE); COLOR,URINE AMBER; GLUCOSE, URINE NEGATIVE (NEGATIVE); KETONES,URINE 80 mg/dL (NEGATIVE); LEUKOCYTE ESTERASE,URINE LARGE (NEGATIVE); NITRITE,URINE NEGATIVE (NEGATIVE); PROTEIN,URINE 100 mg/dL (NEGATIVE); URINE SPECIFIC GRAVITY 1.029
[2020-04-06] MEDS: INSULIN LISPRO 100 UNIT/ML 3 ML VIAL SUBCUT SCH (22:41)
[2020-04-07 05:23] LABS: HEMATOCRIT 32.1 % (36.0-47.0); HEMOGLOBIN 10.2 g/dL (12.0-15.5); MEAN CORPUSCULAR HEMOGLOBIN 25.9 pg (27.0-33.4); MEAN CORPUSCULAR VOLUME 81 fl (80-97); PLATELET COUNT 146 10^3/uL (150-450); RED BLOOD COUNT 3.95 10^6/uL (3.72-5.28); RED CELL DISTRIBUTION WIDTH 18.5 % (11.5-14.0); WHITE BLOOD COUNT 6.1 10^3/uL (4.0-10.5)
[2020-04-07 05:46] LABS: ANION GAP 7 (5-19); BLOOD UREA NITROGEN 21 mg/dL (7-20); CALCIUM 8.8 mg/dL (8.4-10.2); CARBON DIOXIDE 25 mmol/L (22-30); CHLORIDE 108 mmol/L (98-107); GLUCOSE 107 mg/dL (75-110); POTASSIUM 3.8 mmol/L (3.6-5.0)
[2020-04-07] MEDS: INSULIN LISPRO 100 UNIT/ML 3 ML VIAL SUBCUT SCH ×4 (08:46→21:54)
--- NOTE | 2020-04-07 18:33 | PDOC PROGRESS REPORT ---
Subjective Date:: 04/07/20 Subjective:: Patient seen on morning rounds she is resting upright in her chair comfortably. O2 saturation 99% on room air. Continues to complain of "coughing fits". Cough is non-productive in nature and has been persistent and constant for x3 weeks. Additionally noted 3 week history progressively worsening SOB on exertion. Notes LLE swelling with pain with movement and palpation. She has had "burning" in her throat that radiates down into her chest/mid-sternum area, she has history of r eflux. Reports po intake to be baseline. She has had 3 day history of diarrhea, denies recent abx therapy. No further complaints or concerns at this time. No concerns per nursing. Reason For Visit: SYNCOPE Physical Exam Vital Signs: Temp Pulse Resp BP Pulse Ox 98.3 F 52 L 18 146/80 H 99 04/07/20 15:26 04/07/20 15:26 04/07/20 15:26 04/07/20 15:26 04/07/20 15:26 Intake & Output 04/06/20 04/07/20 04/08/20 06:59 06:59 06:59 Intake Total 350 Output Total 300 Balance 50 Weight 117.5 kg General appearance: PRESENT: no acute distress, obese Head exam: PRESENT: atraumatic, normocephalic Eye exam: PRESENT: EOMI. ABSENT: scleral icterus Mouth exam: PRESENT: moist, tongue midline Throat exam: ABSENT: post pharyngeal erythema Neck exam: PRESENT: full ROM Respiratory exam: PRESENT: clear to auscultation giuliano, symmetrical, unlabored. ABSENT: crackles, retraction, stridor, tachypnea, wheezes Cardiovascular exam: PRESENT: bradycardia. ABSENT: diastolic murmur, systolic murmur GI/Abdominal exam: PRESENT: normal bowel sounds, soft. ABSENT: tenderness Extremities exam: PRESENT: full ROM, pedal edema, tenderness - LLE, other - LLE > RLE without redness, with TTP. Musculoskeletal exam: PRESENT: ambulatory, full ROM. ABSENT: deformity Neurological exam: PRESENT: alert, awake, oriented to person, oriented to place, oriented to time, oriented to situation Psychiatric exam: PRESENT: flat affect Skin exam: PRESENT: dry, intact, warm, other - Bilateral lower extremity skin changes consistent with chronic edema. Skin is dry with scaling. Results Laboratory Results: 04/07/20 05:01 04/07/20 05:01 04/06/20 04/07/20 04/07/20 17:15 05:01 05:01 WBC 6.1 RBC 3.95 Hgb 10.2 L Hct 32.1 L MCV 81 MCH 25.9 L MCHC 32.0 RDW 18.5 H Plt Count 146 L Sodium 139.9 Potassium 3.8 Chloride 108 H Carbon Dioxide 25 Anion Gap 7 BUN 21 H Creatinine 1.22 Est GFR ( Amer) 53 L Glucose 107 Calcium 8.8 Urine Color TETO Urine Appearance CLOUDY Urine pH 7.0 Ur Specific Manning 1.029 Urine Protein 100 H Urine Glucose (UA) NEGATIVE Urine Ketones 80 H Urine Blood MODERATE H Urine Nitrite NEGATIVE Ur Leukocyte Esterase LARGE H Urine WBC (Auto) >182 Urine RBC (Auto) 17 04/06/20 04/06/20 04/06/20 17:00 17:00 17:00 Creatine Kinase 109 Troponin I < 0.012 NT-Pro-B Natriuret Pep 713 H Impressions: Chest X-Ray 04/06/20 13:27 IMPRESSION: NO ACUTE RADIOGRAPHIC FINDING IN THE CHEST. Head CT 04/06/20 16:52 IMPRESSION: NORMAL BRAIN CT WITHOUT CONTRAST. EVIDENCE OF ACUTE STROKE: NO. Assessment and Plan - Diagnosis (1) Left leg swelling Is this a current diagnosis for this admission?: Yes Plan: Left lower extremity swelling greater than right lower extremity with tenderness to palpation. -He has history of blood clots in the past. -Previously treated with Eliquis this was stopped due to GI bleed. -Ddimer mildly elevated at 0.9. -Left lower extremity ultrasound pending. (2) Syncope Qualifiers: Syncope type: unspecified Qualified Code(s): R55 - Syncope and collapse Is this a current diagnosis for this admission?: Yes Plan: Pulse rate persistently low 50s. -DDx: arrhythmia -Discussed case with Dr. Sykes, cardiology. -Recommends outpatient follow-up with 30-day Holter monitoring. (3) Cough Is this a current diagnosis for this admission?: Yes Plan: Non-productive cough x3 weeks - SPO2 upper 90s room air - Lungs CTA - CXR 04/06 Without acute findings - Hx reflux, long standing cough with burning sensation in throat and chest likely secondary to reflux - D-dimer mildly elevated at 0.9; low likely islas of PE - Cnt symptomatic management - COVID pending (4) CAD (coronary artery disease) Qualifiers: Coronary Disease-Associated Artery/Lesion type: [place] artery [place] vs. transplanted heart: [place] heart Associated angina: without angina Qualified Code(s): I25.10 - Atherosclerotic heart disease of [place] coronary artery without angina pectoris Is this a current diagnosis for this admission?: Yes Plan: Followed by Dr. Sykes, cardiology. - Consulted and agreed to see patient, appreciate recommendations (5) Essential (primary) hypertension Is this a current diagnosis for this admission?: Yes Plan: BP 140/80, this is without home medications. - Resume home medications (6) Obesity Qualifiers: Obesity type: due to excess calories Obesity classification: adult class 2 (BMI 35 - 39.9) Serious obesity comorbidity presence: with serious comorbidity Body mass index: BMI 38.0-38.9 Qualified Code(s): E66.01 - Morbid (severe) obesity due to excess calories; Z68.38 - Body mass index [BMI] 38.0-38.9, adult Is this a current diagnosis for this admission?: Yes Plan: BMI 45.9 - Educated on diet and lifestyle changes (7) Paroxysmal atrial fibrillation Is this a current diagnosis for this admission?: Yes Plan: Hx Afib with watchman. - Followed by Dr. Sykes, cardiology, discussed case in detail. 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 - Initiate SSI - Accuchecks - Heme A1c in the morning - Hypoglycemic protocol in place (9) GERD (gastroesophageal reflux disease) Qualifiers: Esophagitis presence: without esophagitis Qualified Code(s): K21.9 - Gastro-esophageal reflux disease without esophagitis Is this a current diagnosis for this admission?: Yes Plan: Hx reflux, potential cause of cough. - Resume home Pantoprazole 40mg BID. (10) Diarrhea Qualifiers: Diarrhea type: unspecified type Qualified Code(s): R19.7 - Diarrhea, unspecified Is this a current diagnosis for this admission?: Yes Plan: 3 day history diarrhea. - Without recent abx hx - Likely viral in origin - Likely cause of dehydration - Monitor for improvement - COVID pending - Time Time Spent with patient: 25-34 minutes Medications reviewed and adjusted accordingly: Yes Anticipated Discharge Disposition: Home, Self Care Anticipated Discharge Timeframe: within 24 hours
--- NOTE | 2020-04-07 18:40 | XCELERA REPORT ---
[address] [address] Transthoracic Echocardiogram Report Name: TICO NG Age: 70 yrs Gender: Female : 1950 Patient Status: Inpatient Patient Location: [address] [place] [address] Study Date: 04/07/2020 10:57 AM Height: 63 in Weight: 215 lb BSA: 2.0 m2 Procedure: A two-dimensional transthoracic echocardiogram with color flow and Doppler was performed. Study Quality: Fair. Reason For Study: Syncope History: Syncope. Ordering Physician: BURAK KELLY Performed By: Vi Raphael Interpretation Summary The left ventricle is normal in size. There is normal left ventricular wall thickness. LV EF is Greater than 60% Left ventricular systolic function is normal. Doppler measurements suggest normal left ventricular diastolic function The left ventricular wall motion is normal. There is no thrombus. No ASD,VSD , or PFO seen. The right ventricle is normal in size and function. The right atrium is normal. The left atrium is moderately dilated. There is no vegetation seen on the mitral valve. There is no mitral valve stenosis. There is a mild amount of mitral regurgitation There is no aortic valvular vegetation. There is no aortic valve stenosis No aortic regurgitation is present. There is no tricuspid stenosis. There is a trace to mild amount of tricuspid regurgitation There is mild pulmonary hypertension by echo RVSP is 35 to 40 mm of Hg , with RA mean of 5 to 10. There is no pulmonic valvular stenosis. There is a mild amount of pulmonic regurgitation The aortic root is normal size. The inferior vena cava appeared normal and decreased > 50% with respiration (RAP 5-10 mmHg) There is no pericardial effusion. MMode/2D Measurements & Calculations RVDd: 2.1 cm LVIDd: 5.2 cm FS: 34.7 % Ao root diam: 3.1 cm IVSd: 0.87 cm LVIDs: 3.4 cm EDV(Teich): 128.7 ml Ao root area: 7.5 cm2 LVPWd: 0.95 cm ESV(Teich): 46.9 ml EF(Teich): 63.5 % Doppler Measurements & Calculations MV E max esthela: MV dec slope: Ao V2 max: LV V1 max P.3 cm/sec 451.9 cm/sec2 148.8 cm/sec 3.3 mmHg MV A max esthela: MV dec time: 0.18 sec Ao max P.9 mmHgLV V1 mean P.1 cm/sec Ao V2 mean: 1.9 mmHg MV E/A: 1.1 102.3 cm/sec LV V1 max: Ao mean P.5 cm/sec 4.7 mmHg LV V1 mean: Ao V2 VTI: 40.1 cm 65.0 cm/sec LV V1 VTI: 25.5 cm PA V2 max: PI end-d esthela: TR max esthela: 83.1 cm/sec 140.1 cm/sec 272.1 cm/sec PA max P.8 mmHg TR max P.6 mmHg Left Ventricle The left ventricle is normal in size. There is normal left ventricular wall thickness. LV EF is Greater than 60%. Left ventricular systolic function is normal. Doppler measurements suggest normal left ventricular diastolic function. The left ventricular wall motion is normal. There is no thrombus. No ASD,VSD , or PFO seen. Right Ventricle The right ventricle is normal in size and function. Atria The right atrium is normal. The left atrium is moderately dilated. Mitral Valve There is no evidence of mitral valve prolapse. There is no vegetation seen on the mitral valve. There is no mitral valve stenosis. There is a mild amount of mitral regurgitation. Aortic Valve There is no aortic valvular vegetation. There is no aortic valve stenosis. There is no LVOT obstruction. No aortic regurgitation is present. Tricuspid Valve There is no tricuspid stenosis. There is a trace to mild amount of tricuspid regurgitation. There is mild pulmonary hypertension by echo. RVSP is 35 to 40 mm of Hg , with RA mean of 5 to 10. Pulmonic Valve There is no pulmonic valvular stenosis. There is a mild amount of pulmonic regurgitation. Great Vessels The aortic root is normal size. The inferior vena cava appeared normal and decreased > 50% with respiration (RAP 5-10 mmHg). Effusions There is no pericardial effusion. : BURAK KELLY Lakshmi
--- NOTE | 2020-04-07 19:12 | PDOC CONSULTATION ---
Consultation-Blank Consultation: CARDIOLOGY CONSULTATION by Dr. Maria Eugenia Day on 04/07/2020. Patient seen at 3:30 PM. 60 minutes spent as patient with more than 50% of time spent in direct patient care. CONSULT REQUESTING PHYSICIAN: [facility] Samuel Fel[facility] REASON FOR CONSULTATION: Patient well-known to me follows up with me admitted with episodes of syncope and dry coughing. HISTORY OF PRESENT ILLNESS: Patient is a very poor historian. 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 She describes no cough induced syncope. Her cough is without wheezing and the cough is nonproductive. She also noted low- grade fever off and on. Hence the patient was concerned about her having a Covid19 infection. The patient also states recently she in the standing position [without any changes in posture] having dizzy spells and had 3 brief syncopal episodes. No chest pain shortness of breath or palpitations associated with this. Since her watchman procedure and cardioversion and maintained on amiodarone she has not had any clinical recurrence of atrial fibrillation and no symptoms of palpitation. She has a history of coronary artery disease history of stent in the LAD and diagonal branch and has no anginal symptoms. She denies any PND orthopnea or leg edema. The patient has morbid obesity. She has history of chronic kidney disease and is followed by Dr. Brennan for this. She has history of diabetes mellitus, and also bipolar disorder which is in remission. She denies any black tarry stools or any symptoms suggestive of ongoing or recent GI bleed. PAST MEDICAL HISTORY: History of hypertension. History of coronary artery disease with history of stent in the LAD in 2006 11 and also stent in the first diagonal branch. The patient in June 27, had a Lexiscan stress Cardiolite in my office. She developed atrial fibrillation which is the only known episode and had chest pain. The patient was sent for cardiac catheterization even though the myocardial perfusion imaging was normal. Her cardiac catheterization showed that there was a 70 to 80% mid LAD stenosis, with mild disease in the LAD stent in the proximal portion. She had an FFR which showed that the lesion was not flow-limiting and hence the patient was relegated to medical treatment. The patient has not had anginal symptoms. She apart from the one episode of atrial fibrillation has not had any clinical [place] documented recurrence of atrial fibrillation. She has a history of chronic kidney disease stage III. She has a past history of GI bleed said to be due to GI AV malformation. In view of the patient's GI AV malformation, and the patient is high corrected Jd vas 2 score, requiring need for anticoagulation work-up was done to refer the patient for a watchman procedure. Shows no history of thyroid disease. She has a history of arthritis but no collagen vascular disease. She also has a history of hyperlipidemia. She also has a history of uterine cancer and is cured. She has a history of bipolar disorder and history of urinary incontinence. She also has morbid obesity. So she has no history of sleep apnea. PAST SURGICAL HISTORY: A catheterization and stent placement. Knee arthroplasty, gallbladder surgery, hysterectomy bilateral knee replacement. Atorvastatin Calcium [Lipitor 40 mg Tablet] 40 mg PO QHS 05/15/18 Furosemide [Lasix 20 mg Tablet] 20 mg PO QAM 05/15/18 Montelukast Sodium [Singulair 10 mg Tablet] 10 mg PO QPM 05/15/18 Duloxetine HCl [Cymbalta] 60 mg PO DAILY 04/06/20 Felodipine [Felodipine ER] 5 mg PO DAILY 04/06/20 Ferrous Sulfate [Feosol 325 mg Tablet] 325 mg PO DAILY 04/06/20 Gabapentin [Neurontin 300 mg Capsule] 300 mg PO Q8 04/06/20 Hum Insulin NPH/Reg Insulin Hm [Insulin 70-30 (NPH/Reg) 100 unit/mL] 40 unit SUBCUT BID 04/06/20 Social HISTORY: She has never smoked. There is notes of EtOH abuse. Current Medications Generic Name Dose Route Start Last Admin Trade Name Freq PRN Reason Stop Dose Admin Atorvastatin Calcium 40 mg 04/07/20 22:00 Atorvastatin Calcium 40 Mg Tablet PO 05/07/20 21:59 QHS [facility] Cyanocobalamin 1,000 mcg 04/08/20 10:00 Cyanocobalamin (Vitamin B-12) 1,000 Mcg Tablet PO 05/08/20 09:59 DAILY [facility] Dextrose 12.5 gm 04/06/20 20:17 Dextrose 50%-Water 25 Gm/50 Ml Disp.Syrin IV 05/06/20 20:16 PRN PRN FOR BG 50-69 IN ALERT PATIENT Protocol Dextrose 25 gm 04/06/20 20:17 Dextrose 50%-Water 25 Gm/50 Ml Disp.Syrin IV 05/06/20 20:16 PRN PRN PER PROTOCOL Protocol Ferrous Sulfate 325 mg 04/08/20 10:00 Ferrous Sulfate 325 Mg Tablet PO 05/08/20 09:59 DAILY [facility] Furosemide 20 mg 04/08/20 08:00 Furosemide 20 Mg Tablet PO 05/08/20 07:59 QAM [facility] Gabapentin 300 mg 04/07/20 22:00 Gabapentin 300 Mg Capsule PO 05/07/20 21:59 Q8 [facility] Glucagon 1 mg 04/06/20 20:17 Glucagon,Human Recomb 1 Mg Inj IM 05/06/20 20:16 PRN PRN Evaluate for BG < 70 Protocol Glucose 15 gm 04/06/20 20:17 Dextrose 40% Gel 15 Gm Tube PO 05/06/20 20:16 PRN PRN FOR BG 50-69 IN ALERT PATIENT Protocol Glucose 30 gm 04/06/20 20:17 Dextrose 40% Gel 15 Gm Tube PO 05/06/20 20:16 PRN PRN FOR BG < 50 IN ALERT PATIENT Protocol Influenza Virus Vaccine Quadrival 0.5 ml 04/08/20 08:00 Influenza Quad (6mos+) Vac 0.5 Ml Syr IM 04/08/20 08:01 .ONCE ONE Insulin Human Lispro 0 - 12 unit 04/06/20 22:00 04/07/20 16:19 Insulin Lispro 100 Unit/Ml 3 Ml Vial SUBCUT 05/06/20 21:59 Not Given ACHS [facility] Protocol Montelukast Sodium 10 mg 04/08/20 18:00 Montelukast Sodium 10 Mg Tablet PO 05/08/20 17:59 QPM [facility] Pantoprazole Sodium 40 mg 04/08/20 06:00 Pantoprazole Sodium 40 Mg Tablet. PO 05/08/20 05:59 BID@0600,1700 [facility] Patient Own Medication 60 mg 04/08/20 10:00 Duloxetine Hcl [Cymbalta] PO 05/08/20 09:59 DAILY [facility] Patient Own Medication 100 mg 04/08/20 08:00 Losartan Potassium [Cozaar 100 Mg Tablet] PO 05/08/20 07:59 QAM [facility] Sodium Chloride 2.5 ml 04/06/20 22:00 04/07/20 13:24 Normal Saline Flush 2.5 Ml Disp.Syrin IV 05/06/20 21:59 2.5 ml Q8 [facility]OTHY Administration Discontinued Medications Generic Name Dose Route Start Last Admin Trade Name Freq PRN Reason Stop Dose Admin Pantoprazole Sodium 40 mg 04/08/20 06:00 Pantoprazole Sodium 40 Mg Tablet. PO 05/08/20 05:59 Q6AM [facility]OTHY Note that the patient is on amiodarone 200 mg p.o. daily which is not listed Allergies: She is allergic to codeine. RESUSCITATION STATUS: The patient is a full code. Her daughteris her surrogate healthcare decision maker. FAMILY HISTORY is positive for cardiomyopathy congestive heart failure coronary artery disease, diabetes, hypertension, and myocardial infarction both parents had coronary artery disease and from it. REVIEW OF SYSTEMS: CONSTITUTIONAL: Denies chills or rigors. Complains of intermittent fevers. Complains of generalized fatigue and weakness. HEAD: Denies headaches or head injury. EYES: No history of amblyopia diplopia. No history of amaurosis fugax. EARS: No severe in loss. No tinnitus. No vertigo. NOSE: No history of nosebleeds. No history of hayfever. MOUTH: There is no altered taste sensation. There is no ulcers in the mouth. There is no bleeding from the gums. THROAT: There is no odynophagia or dysphagia. There is no recurrent sore throats. SKIN: There is no skin rashes or skin lesions. There is no petechia or ecchymosis. NECK: There is no neck pain. There is no swelling in the neck. LUNGS: No history of wheezing. She gives a history history of cough .nonproductive cough without sputum production. HEART: History of coronary artery disease no recent anginal symptoms. Denies PND orthopnea. No leg edema. History of hypertension present history of hyperlipidemia present. No history of recent palpitations . She remains in sinus rhythm maintained on amiodarone. She had a watchman procedure done since she is high risk for GI bleed with anticoagulation. The patient admitted with recurrent episodes of syncope. . GI: History of AV malformation present. History of prior GI bleed present. Recent black stools with occult positivity by lab testing. There is no history of jaundice. No history of abdominal pain. No history of altered bowel movements. MUSCULOSKELETAL: History of arthritis present but no history of collagen vascular disease. ENDOCRINE: History of diabetes mellitus. No history of thyroid disease. No polydipsia polyuria. No severe to cold intolerance. MATERIAL CHASER: No history of TIA CVA. No history of headaches migraines or seizures. PSYCHIATRIC: History of bipolar disorder in remission. No recent episodes of anxiety or depression. She has no suicidal ideation. There is no homicidal ideation. RENAL: History of chronic kidney d isease stage III. History of urinary incontinence present. No history of UTI. PHYSICAL EXAMINATION: The patient is morbidly obese. At present in no acute distress. Selected Entries 04/07/20 15:26 Temperature 98.3 F Temperature Oral Source Pulse Rate 52 L Respiratory 18 Rate Blood Pressure 146/80 H Blood Pressure 102 Mean BP Location Right Arm BP Position Sitting O2 Sat by Pulse 99 Oximetry Oxygen Delivery Room Air Method HEAD: Is atraumatic normocephalic. EYES: Pupils equal round regular reactive light accommodation. There is mild conjunctival pallor. There is no scleral icterus. EARS: Tympanic membranes are intact. External auditory canals are clear. NOSE: There is no deviated nasal septum. There is no inflammation of the nasal mucous membrane. MOUTH: Mucous membranes of the mouth is slightly dry. There is no ulcers. There is no bleeding from the gums. THROAT: There is no redness of the oropharynx. There is no exudates. SKIN: There is no skin rashes or skin lesions. There is no petechia or ecchymosis NECK: Is supple. There is no JVD. Carotids are equal there is no bruit. There is no lymphadenopathy. There is no goiter. There is no accessory muscle respiration use. Trachea central. LUNGS: Is clear to auscultation percussion without any rhonchi rales wheezing. HEART: S1-S2 is heard. S1 is of normal intensity. There is no S3 gallop. There is no S4 gallop. There is systolic murmur left sternal border and the apex there is no rub. ABDOMEN: Is obese. Nontender. There is no hepatosplenomegaly. Bowel sounds are well heard. EXTREMITIES: Femorals are deep. Femorals are diminished. There is no femoral bruits. Leg pulses are well felt. There is no pedal edema. There is no DVT or cellulitis. There is no cyanosis or clubbing. MATERIAL CHASER: The patient is conscious awake oriented x3 with no focal deficits. PSYCHIATRIC: Patient judgment insight are intact her affect is normal. EKG:- * SINUS BRADYCARDIA [LVH] . LEFT VENTRICULAR HYPERTROPHY. ECHOCARDIOGRAM: The left ventricle is normal in size. There is normal left ventricular wall thickness. LV EF is Greater than 60% Left ventricular systolic function is normal. Doppler measurements suggest normal left ventricular diastolic function The left ventricular wall motion is normal. There is no thrombus. No ASD,VSD , or PFO seen. The right ventricle is normal in size and function. The right atrium is normal. The left atrium is moderately dilated. There is no vegetation seen on the mitral valve. There is no mitral valve stenosis. There is a mild amount of mitral regurgitation There is no aortic valvular vegetation. There is no aortic valve stenosis No aortic regurgitation is present. There is no tricuspid stenosis. There is a trace to mild amount of tricuspid regurgitation There is mild pulmonary hypertension by echo RVSP is 35 to 40 mm of Hg , with RA mean of 5 to 10. There is no pulmonic valvular stenosis. There is a mild amount of pulmonic regurgitation The aortic root is normal size. The inferior vena cava appeared normal and decreased > 50% with respiration (RAP 5-10 mmHg) There is no pericardial effusion. Labs- Entire Visit 04/06/20 04/06/20 04/06/20 16:15 16:15 16:15 WBC RBC Hgb Hct MCV MCH MCHC RDW Plt Count Lymph % (Auto) Saunders % (Auto) Eos % (Auto) Baso % (Auto) Absolute Neuts (auto) Absolute Lymphs (auto) Absolute Monos (auto) Absolute Eos (auto) Absolute Basos (auto) Seg Neutrophils % D-Dimer Sodium Potassium Chloride Carbon Dioxide Anion Gap BUN Creatinine Est GFR ( Amer) Est GFR (MDRD) Non-Af Glucose POC Glucose Calcium Total Bilirubin Direct Bilirubin Neonat Total Bilirubin Neonat Direct Bilirubin Neonat Indirect Bili AST ALT Alkaline Phosphatase Creatine Kinase Troponin I NT-Pro-B Natriuret Pep Total Protein Albumin Urine Color Urine Appearance Urine pH Ur Specific Glidden Urine Protein Urine Glucose (UA) Urine Ketones Urine Blood Urine Nitrite Urine Bilirubin Urine Urobilinogen Ur Leukocyte Esterase Urine WBC (Auto) Urine RBC (Auto) Urine WBC Clumps Squamous Epi Cells Auto U Non-Squamous Epis Auto Urine Mucus (Auto) Urine Ascorbic Acid COVID-19 Source See comment Influenza A (Rapid) NEGATIVE Influenza B (Rapid) NEGATIVE Group A Strep Rapid NEGATIVE 04/06/20 04/06/20 04/06/20 17:00 17:00 17:00 WBC 6.9 RBC 4.31 Hgb 11.4 L Hct 35.9 L MCV 83 MCH 26.5 L MCHC 31.8 L RDW 18.5 H Plt Count 175 Lymph % (Auto) 21.2 Saunders % (Auto) 6.7 Eos % (Auto) 2.6 Baso % (Auto) 0.7 Absolute Neuts (auto) 4.7 Absolute Lymphs (auto) 1.5 Absolute Monos (auto) 0.5 Absolute Eos (auto) 0.2 Absolute Basos (auto) 0.0 Seg Neutrophils % 68.8 D-Dimer Sodium 139.7 Potassium 4.2 Chloride 105 Carbon Dioxide 27 Anion Gap 8 BUN 22 H Creatinine 1.31 H Est GFR ( Amer) 49 L Est GFR (MDRD) Non-Af 40 L Glucose 104 POC Glucose Calcium 9.4 Total Bilirubin 0.7 Direct Bilirubin 0.1 Neonat Total Bilirubin Not Reportable Neonat Direct Bilirubin Not Reportable Neonat Indirect Bili Not Reportable AST 32 ALT 21 Alkaline Phosphatase 110 Creatine Kinase 109 Troponin I < 0.012 NT-Pro-B Natriuret Pep Total Protein 7.4 Albumin 4.2 Urine Color Urine Appearance Urine pH Ur Specific [place]idden Urine Protein Urine Glucose (UA) Urine Ketones Urine Blood Urine Nitrite Urine Bilirubin Urine Urobilinogen Ur Leukocyte Esterase Urine WBC (Auto) Urine RBC (Auto) Urine WBC Clumps Squamous Epi Cells Auto U Non-Squamous Epis Auto Urine Mucus (Auto) Urine Ascorbic Acid COVID-19 Source Influenza A (Rapid) Influenza B (Rapid) Group A Strep Rapid 04/06/20 04/06/20 04/06/20 17:00 17:15 21:10 WBC RBC Hgb Hct MCV MCH MCHC RDW Plt Count Lymph % (Auto) Saunders % (Auto) Eos % (Auto) Baso % (Auto) Absolute Neuts (auto) Absolute Lymphs (auto) Absolute Monos (auto) Absolute Eos (auto) Absolute Basos (auto) Seg Neutrophils % D-Dimer Sodium Potassium Chloride Carbon Dioxide Anion Gap BUN Creatinine Est GFR ( Amer) Est GFR (MDRD) Non-Af Glucose POC Glucose 110 Calcium Total Bilirubin Direct Bilirubin Neonat Total Bilirubin Neonat Direct Bilirubin Neonat Indirect Bili AST ALT Alkaline Phosphatase Creatine Kinase Troponin I NT-Pro-B Natriuret Pep 713 H Total Protein Albumin Urine Color TETO Urine Appearance CLOUDY Urine pH 7.0 Ur Specific [place]idden 1.029 Urine Protein 100 H Urine Glucose (UA) NEGATIVE Urine Ketones 80 H Urine Blood MODERATE H Urine Nitrite NEGATIVE Urine Bilirubin NEGATIVE Urine Urobilinogen 4.0 H Ur Leukocyte Esterase LARGE H Urine WBC (Auto) >182 Urine RBC (Auto) 17 Urine WBC Clumps FEW Squamous Epi Cells Auto 8 U Non-Squamous Epis Auto 2 Urine Mucus (Auto) MANY Urine Ascorbic Acid NEGATIVE COVID-19 Source Influenza A (Rapid) Influenza B (Rapid) Group A Strep Rapid 04/07/20 04/07/20 04/07/20 05:01 05:01 08:29 WBC 6.1 RBC 3.95 Hgb 10.2 L Hct 32.1 L MCV 81 MCH 25.9 L MCHC 32.0 RDW 18.5 H Plt Count 146 L Lymph % (Auto) Saunders % (Auto) Eos % (Auto) Baso % (Auto) Absolute Neuts (auto) Absolute Lymphs (auto) Absolute Monos (auto) Absolute Eos (auto) Absolute Basos (auto) Seg Neutrophils % D-Dimer Sodium 139.9 Potassium 3.8 Chloride 108 H Carbon Dioxide 25 Anion Gap 7 BUN 21 H Creatinine 1.22 Est GFR ( Amer) 53 L Est GFR (MDRD) Non-Af 44 L Glucose 107 POC Glucose 102 Calcium 8.8 Total Bilirubin Direct Bilirubin Neonat Total Bilirubin Neonat Direct Bilirubin Neonat Indirect Bili AST ALT Alkaline Phosphatase Creatine Kinase Troponin I NT-Pro-B Natriuret Pep Total Protein Albumin Urine Color Urine Appearance Urine pH Ur Specific [place] Urine Protein Urine Glucose (UA) Urine Ketones Urine Blood Urine Nitrite Urine Bilirubin Urine Urobilinogen Ur Leukocyte Esterase Urine WBC (Auto) Urine RBC (Auto) Urine WBC Clumps Squamous Epi Cells Auto U Non-Squamous Epis Auto Urine Mucus (Auto) Urine Ascorbic Acid COVID-19 Source Influenza A (Rapid) Influenza B (Rapid) Group A Strep Rapid 04/07/20 04/07/20 04/07/20 10:10 11:41 16:00 WBC RBC Hgb Hct MCV MCH MCHC RDW Plt Count Lymph % (Auto) Saunders % (Auto) Eos % (Auto) Baso % (Auto) Absolute Neuts (auto) Absolute Lymphs (auto) Absolute Monos (auto) Absolute Eos (auto) Absolute Basos (auto) Seg Neutrophils % D-Dimer 0.90 H Sodium Potassium Chloride Carbon Dioxide Anion Gap BUN Creatinine Est GFR ( Amer) Est GFR (MDRD) Non-Af Glucose POC Glucose 201 H 141 H Calcium Total Bilirubin Direct Bilirubin Neonat Total Bilirubin Neonat Direct Bilirubin Neonat Indirect Bili AST ALT Alkaline Phosphatase Creatine Kinase Troponin I NT-Pro-B Natriuret Pep Total Protein Albumin Urine Color Urine Appearance Urine pH Ur Specific [place] Urine Protein Urine Glucose (UA) Urine Ketones Urine Blood Urine Nitrite Urine Bilirubin Urine Urobilinogen Ur Leukocyte Esterase Urine WBC (Auto) Urine RBC (Auto) Urine WBC Clumps Squamous Epi Cells Auto U Non-Squamous Epis Auto Urine Mucus (Auto) Urine Ascorbic Acid COVID-19 Source Influenza A (Rapid) Influenza B (Rapid) Group A Strep Rapid Labs- All tests 24 hr 04/06/20 04/06/20 04/07/20 17:15 21:10 05:01 WBC 6.1 RBC 3.95 Hgb 10.2 L Hct 32.1 L MCV 81 MCH 25.9 L MCHC 32.0 RDW 18.5 H Plt Count 146 L D-Dimer Sodium Potassium Chloride Carbon Dioxide Anion Gap BUN Creatinine Est GFR ( Amer) Est GFR (MDRD) Non-Af Glucose POC Glucose 110 Calcium Urine Color TETO Urine Appearance CLOUDY Urine pH 7.0 Ur Specific [place] 1.029 Urine Protein 100 H Urine Glucose (UA) NEGATIVE Urine Ketones 80 H Urine Blood MODERATE H Urine Nitrite NEGATIVE Urine Bilirubin NEGATIVE Urine Urobilinogen 4.0 H Ur Leukocyte Esterase LARGE H Urine WBC (Auto) >182 Urine RBC (Auto) 17 Urine WBC Clumps FEW Squamous Epi Cells Auto 8 U Non-Squamous Epis Auto 2 Urine Mucus (Auto) MANY Urine Ascorbic Acid NEGATIVE 04/07/20 04/07/20 04/07/20 05:01 08:29 10:10 WBC RBC Hgb Hct MCV MCH MCHC RDW Plt Count D-Dimer 0.90 H Sodium 139.9 Potassium 3.8 Chloride 108 H Carbon Dioxide 25 Anion Gap 7 BUN 21 H Creatinine 1.22 Est GFR ( Amer) 53 L Est GFR (MDRD) Non-Af 44 L Glucose 107 POC Glucose 102 Calcium 8.8 Urine Color Urine Appearance Urine pH Ur Specific [place] Urine Protein Urine Glucose (UA) Urine Ketones Urine Blood Urine Nitrite Urine Bilirubin Urine Urobilinogen Ur Leukocyte Esterase Urine WBC (Auto) Urine RBC (Auto) Urine WBC Clumps Squamous Epi Cells Auto U Non-Squamous Epis Auto Urine Mucus (Auto) Urine Ascorbic Acid 04/07/20 04/07/20 11:41 16:00 WBC RBC Hgb Hct MCV MCH MCHC RDW Plt Count D-Dimer Sodium Potassium Chloride Carbon Dioxide Anion Gap BUN Creatinine Est GFR ( Amer) Est GFR (MDRD) Non-Af Glucose POC Glucose 201 H 141 H Calcium Urine Color Urine Appearance Urine pH Ur Specific [place] Urine Protein Urine Glucose (UA) Urine Ketones Urine Blood Urine Nitrite Urine Bilirubin Urine Urobilinogen Ur Leukocyte Esterase Urine WBC (Auto) Urine RBC (Auto) Urine WBC Clumps Squamous Epi Cells Auto U Non-Squamous Epis Auto Urine Mucus (Auto) Urine Ascorbic Acid IMPRESSION/RECOMMENDATION: 1. Recurrent episodes of syncope of short duration.? Etiology. Will decrease the patient's amiodarone 100 mg p.o. daily. We will check the patient's 30-day event monitor as an outpatient to see if there is any bradycardia or tachyarrhythmia. Note echo shows normal LV ejection fraction and the patient is on amiodarone hence doubt ventricular arrhythmia as cause of symptoms of syncope. Most likely secondary to bradycardia due to arrhythmia versus paroxysms of atrial fibrillation. A 30-day outpatient event monitor is definitely indicated. 2. History of 3 weeks of intermittent coughing which is nonproductive of any sputum, but associated with fever.: Patient very vague about this. Patient's Covid19 testing is awaited. No severe abnormalities on the chest x-ray. The GI bleed or symptoms of GI bleed. Hemoglobin remained stable. Influenza testing has been negative so far await Covid19 test results. 3. Paroxysmal atrial fibrillation, with no recurrence. Maintaining sinus rhythm on amiodarone. Patient off chronic anticoagulation after watchman procedure. 4. Coronary artery disease. History of stent in the LAD and diagonal and history of moderate LAD lesion, with no angina. No evidence of acute coronary event this admission. 5. Hypertension: Blood pressure well controlled. 6. Diabetes mellitus: Continue current antidiabetic regimen and Accu-Cheks as per protocol. 7. Chronic kidney disease stage III. 8. History of bipolar disorder: Stable. 9. Prior history of GI bleed secondary to AV malformation. No recent symptoms of dark stools or evidence of any symptoms of GI bleed. Hemoglobin is stable. 10. Morbid obesity. In view of the patient being on amiodarone would check the patient's liver and thyroid function tests. Medications reviewed. Medications adjusted medical regimen management plan discussed with attending provider on the case. 60 minutes spent as patient with more than 50% time spent in direct patient care. Medical decision making is of high complexity. Will follow
--- NOTE | 2020-04-07 20:54 | RADIOLOGY REPORT (SQ) ---
US LOWER EXTREMITY VEINS HISTORY: Leg pain and swelling. COMPARISON: None. TECHNIQUE: Grayscale, color Doppler, and spectral Doppler images of the left lower extremity were performed. FINDINGS: The common femoral, superficial femoral and popliteal veins are patent and compressible. Normal augmentation and color Doppler blood flow in the aforementioned veins. The visualized calf veins are also patent. Diffuse subcutaneous edema is present. IMPRESSION: No DVT in the left lower extremity.
[2020-04-07] MEDS: GABAPENTIN 300 MG CAPSULE PO SCH (21:54)
[2020-04-07] MEDS ORDERED: ATORVASTATIN CALCIUM 40 MG TABLET PO SCH (22:00)
[2020-04-08 05:27] LABS: ALBUMIN 3.5 g/dL (3.5-5.0); ALKALINE PHOSPHATASE 92 U/L (38-126); ASPARTATE AMINO TRANSFERASE 35 U/L (14-36); BILIRUBIN,DIRECT 0.1 mg/dL (0.0-0.4); BILIRUBIN,TOTAL 0.7 mg/dL (0.2-1.3); TOTAL PROTEIN 6.3 g/dL (6.3-8.2)
[2020-04-08] MEDS: GABAPENTIN 300 MG CAPSULE PO SCH (05:39)
[2020-04-08 05:50] LABS: FREE T3 2.88 pg/mL (2.77-5.27); FREE T4 (FREE THYROXINE) 1.37 ng/dL (0.78-2.19)
[2020-04-08] MEDS ORDERED: PANTOPRAZOLE SODIUM 40 MG TABLET.DR PO SCH ×2 (06:00)
[2020-04-08 06:04] LABS: THYROID STIMULATING HORMONE 2.84 uIU/mL (0.47-4.68)
[2020-04-08] MEDS ORDERED: LOSARTAN POTASSIUM 50 MG TABLET PO SCH (08:00)
[2020-04-08] MEDS ORDERED: LOSARTAN POTASSIUM 100 MG PO SCH (08:00)
[2020-04-08] MEDS ORDERED: INFLUENZA QUAD (6MOS+) 2020-21 VAC 0.5 ML SYR IM ONE (08:00)
[2020-04-08] MEDS ORDERED: FUROSEMIDE 20 MG TABLET PO SCH (08:00)
[2020-04-08] MEDS: INSULIN LISPRO 100 UNIT/ML 3 ML VIAL SUBCUT SCH ×2 (08:43→11:55)
[2020-04-08] MEDS ORDERED: CYANOCOBALAMIN (VITAMIN B-12) 1,000 MCG TABLET PO SCH (10:00)
[2020-04-08] MEDS ORDERED: DULOXETINE HCL 30 MG CAPSULE.DR PO SCH (10:00)
[2020-04-08] MEDS ORDERED: FERROUS SULFATE 325 MG TABLET PO SCH (10:00)
[2020-04-08] MEDS ORDERED: (PENDING PHARMACY ID) (Duloxetine Hcl [Cymbalta] 60 MG Capsule.Dr) PO SCH (10:00)
[2020-04-08 12:06] VITALS: BP 145/66
--- NOTE | 2020-04-08 13:40 | PDOC DISCHARGE SUMMARY ---
Impression - Admit/DC Date/PCP Admission Date/Primary Care Provider: 04/06/20 18:36 MEKA ESQUIVEL MD Discharge Date: 04/08/20 - Discharge Diagnosis (1) Left leg swelling Is this a current diagnosis for this admission?: Yes (2) Syncope Is this a current diagnosis for this admission?: Yes (3) Cough Is this a current diagnosis for this admission?: Yes (4) CAD (coronary artery disease) Is this a current diagnosis for this admission?: Yes (5) Essential (primary) hypertension Is this a current diagnosis for this admission?: Yes (6) Obesity Is this a current diagnosis for this admission?: Yes (7) Paroxysmal atrial fibrillation Is this a current diagnosis for this admission?: Yes (8) Type 2 diabetes mellitus with diabetic chronic kidney disease Is this a current diagnosis for this admission?: Yes (9) GERD (gastroesophageal reflux disease) Is this a current diagnosis for this admission?: Yes (10) Diarrhea Is this a current diagnosis for this admission?: Yes - Additional Information Discharge Diet: Cardiac, Diabetic Discharge Activity: Activity As Tolerated Referrals: KRISTA SALEH MD [ACTIVE STAFF] - 04/16/20 12:00 pm Prescriptions: Amiodarone HCl 100 mg PO DAILY #50 tablet Guaifenesin 200 mg PO Q4 PRN #30 tablet PRN Reason: Home Medications: Atorvastatin Calcium [Lipitor 40 mg Tablet] 40 mg PO QHS 05/15/18 Furosemide [Lasix 20 mg Tablet] 20 mg PO QAM 05/15/18 Montelukast Sodium [Singulair 10 mg Tablet] 10 mg PO QPM 05/15/18 Cyanocobalamin (Vitamin B-12) [Vitamin B-12 1000 mcg Tablet] 1,000 mcg PO DAILY #90 tablet 05/20/18 Losartan Potassium [Cozaar 100 mg Tablet] 100 mg PO QAM #90 05/20/18 Aspirin [Ecotrin 81 mg EC Tablet] 81 mg PO DAILY tabec 05/12/19 Pantoprazole Sodium [Protonix [address] Tablet] 40 mg PO BID@0600,1700 30 Days #30 tablet. 05/12/19 Duloxetine HCl [Cymbalta] 60 mg PO DAILY 04/06/20 Felodipine [Felodipine ER] 5 mg PO DAILY 04/06/20 Ferrous Sulfate [Feosol 325 mg Tablet] 325 mg PO DAILY 04/06/20 Gabapentin [Neurontin 300 mg Capsule] 300 mg PO Q8 04/06/20 Hum Insulin NPH/Reg Insulin Hm [Insulin 70-30 (NPH/Reg) 100 unit/mL] 40 unit SUBCUT BID 04/06/20 Amiodarone HCl 100 mg PO DAILY #50 tablet 04/08/20 Guaifenesin 200 mg PO Q4 PRN #30 tablet 04/08/20 History of Present Illiness History of Present Illness: As per admitting physician on 04/06/2020 "TICO NG is a 70 year old female with multiple medical problems but she does not know what most of them are. She knows that she has diabetes because she takes insulin, and she thinks she has atrial fibrillation but she does not know of any medicine she takes to keep her heart rate under control. She knows that she had a watchman procedure done because she had bleeding from the blood thinner she was once on. She comes in today for a constellation of poorly described symptoms. She has had a cough for about 3 weeks that is been nonproductive. She only coughed once the whole time I was in the room with her. She is not been running a fever. All of her vital signs were normal and her SPO2 was in the upper 90s on room air. She was not short of breath. She has not experienced any shortness of breath. Her chest x-ray was normal. She says that in the past couple of weeks she has had dizzy spells where she passed out. She said that she had been standing and it was not getting up from a seated position when this happened. She did not describe any symptoms that sound like palpitations, but she said that she just felt dizzy and then fell. She says she felt like she blacked out for just a second but she never had any sort of sensation of encephalopathy after the fact. EKG showed sinus bradycardia with a rate in the upper 50s. This patient was an extremely poor historian." Hospital Course Hospital Course: Syncope Pulse rate persistently low 50s as per telemetry, otherwise no arrhythmia noted. - DDx: arrhythmia / bradycardia / dehydration - Evaluated by Dr. Sykes, cardiology. Recommends outpatient follow-up with 30- day Holter monitoring. Paroxysmal atrial fibrillation Hx Afib with watchman. - Followed by Dr. Sykes, cardiology, discussed case in detail. - Historically on Amioderone 200mg, decreased to 100mg. - Known hx AV formation, previously on Eliquis discontinued due to GI bleed. - Denies signs/symptoms of bleeding - Hgb stable at 10.2 - budder amioderone use, LFTs and TSH WNL. Left leg swelling Left lower extremity swelling greater than right lower extremity with tenderness to palpation. -Ddimer mildly elevated at 0.9. - LLE US without DVT. - Recommend leg elevation daily Cough Non-productive cough x3 weeks - SPO2 upper 90s room air, Lungs CTA. - CXR 04/06 Without acute findings. - Hx reflux, long standing cough with burning sensation in throat and chest likely secondary to reflux. - D-dimer mildly elevated at 0.9; low likely islas of PE no further workup indicated on evaluation. - COVID negative - Continue home dose Protonix 40mg BID, educated on daily medication compliance and prevention. - Guaifenesin prn for cough symptoms. GERD (gastroesophageal reflux disease) Hx reflux, potential cause of cough. - Resume home Pantoprazole 40mg BID. Diarrhea 3 day history diarrhea. Resolved without intervention, likely viral in origin. - Without recent abx hx - Likely cause of dehydration Physical Exam Vital Signs: Temp Pulse Resp BP Pulse Ox 98.1 F 64 20 145/66 H 94 04/08/20 12:03 04/08/20 12:03 04/08/20 12:03 04/08/20 12:03 04/08/20 12:03 Intake & Output 04/07/20 04/08/20 04/09/20 06:59 06:59 06:59 Intake Total 350 1620 Output Total 300 1100 Balance 50 520 Weight 117.5 kg 117.5 kg Additional comments: General appearance: PRESENT: no acute distress, obese Head exam: PRESENT: atraumatic, normocephalic Eye exam: PRESENT: EOMI. ABSENT: scleral icterus Mouth exam: PRESENT: moist, tongue midline Throat exam: ABSENT: post pharyngeal erythema Neck exam: PRESENT: full ROM Respiratory exam: PRESENT: clear to auscultation giuliano, symmetrical, unlabored. ABSENT: crackles, retraction, stridor, tachypnea, wheezes Cardiovascular exam: PRESENT: bradycardia. ABSENT: diastolic murmur, systolic murmur GI/Abdominal exam: PRESENT: normal bowel sounds, soft. ABSENT: tenderness Extremities exam: PRESENT: full ROM, pedal edema, tenderness - LLE, other - LLE > RLE without redness, with TTP. Musculoskeletal exam: PRESENT: ambulatory, full ROM. ABSENT: deformity Neurological exam: PRESENT: alert, awake, oriented to person, oriented to place, oriented to time, oriented to situation Psychiatric exam: PRESENT: flat affect Skin exam: PRESENT: dry, intact, warm, other - Bilateral lower extremity skin changes consistent with chronic edema. Skin is dry with scaling. Results Laboratory Results: WBC 6.1 10^3/uL (4.0-10.5) 04/07/20 05:01 RBC 3.95 10^6/uL (3.72-5.28) 04/07/20 05:01 Hgb 10.2 g/dL (12.0-15.5) L 04/07/20 05:01 Hct 32.1 % (36.0-47.0) L 04/07/20 05:01 MCV 81 fl (80-97) 04/07/20 05:01 MCH 25.9 pg (27.0-33.4) L 04/07/20 05:01 MCHC 32.0 g/dL (32.0-36.0) 04/07/20 05:01 RDW 18.5 % (11.5-14.0) H 04/07/20 05:01 Plt Count 146 10^3/uL (150-450) L 04/07/20 05:01 Lymph % (Auto) 21.2 % (13-45) 04/06/20 17:00 Rosebud % (Auto) 6.7 % (3-13) 04/06/20 17:00 Eos % (Auto) 2.6 % (0-6) 04/06/20 17:00 Baso % (Auto) 0.7 % (0-2) 04/06/20 17:00 Absolute Neuts (auto) 4.7 10^3/uL (1.7-8.2) 04/06/20 17:00 Absolute Lymphs (auto) 1.5 10^3/uL (0.5-4.7) 04/06/20 17:00 Absolute Monos (auto) 0.5 10^3/uL (0.1-1.4) 04/06/20 17:00 Absolute Eos (auto) 0.2 10^3/uL (0.0-0.6) 04/06/20 17:00 Absolute Basos (auto) 0.0 10^3/uL (0.0-0.2) 04/06/20 17:00 Seg Neutrophils % 68.8 % (42-78) 04/06/20 17:00 D-Dimer 0.90 ug/mL (0.00-0.50) H 04/07/20 10:10 Sodium 139.9 mmol/L (137-145) 04/07/20 05:01 Potassium 3.8 mmol/L (3.6-5.0) 04/07/20 05:01 Chloride 108 mmol/L (98-107) H 04/07/20 05:01 Carbon Dioxide 25 mmol/L (22-30) 04/07/20 05:01 Anion Gap 7 (5-19) 04/07/20 05:01 BUN 21 mg/dL (7-20) H 04/07/20 05:01 Creatinine 1.22 mg/dL (0.52-1.25) 04/07/20 05:01 Est GFR ( Amer) 53 (>60) L 04/07/20 05:01 Est GFR (MDRD) Non-Af 44 (>60) L 04/07/20 05:01 Glucose 107 mg/dL (75-110) 04/07/20 05:01 POC Glucose 143 mg/dL (70-110) H 04/08/20 11:39 Calcium 8.8 mg/dL (8.4-10.2) 04/07/20 05:01 Total Bilirubin 0.7 mg/dL (0.2-1.3) 04/08/20 04:48 Direct Bilirubin 0.1 mg/dL (0.0-0.4) 04/08/20 04:48 Neonat Total Bilirubin Not Reportable 04/08/20 04:48 Neonat Direct Bilirubin Not Reportable 04/08/20 04:48 Neonat Indirect Bili Not Reportable 04/08/20 04:48 AST 35 U/L (14-36) 04/08/20 04:48 ALT 27 U/L (<35) 04/08/20 04:48 Alkaline Phosphatase 92 U/L (38-126) 04/08/20 04:48 Creatine Kinase 109 U/L (30-135) 04/06/20 17:00 Troponin I < 0.012 ng/mL 04/06/20 17:00 NT-Pro-B Natriuret Pep 713 pg/mL (<125) H 04/06/20 17:00 Total Protein 6.3 g/dL (6.3-8.2) 04/08/20 04:48 Albumin 3.5 g/dL (3.5-5.0) 04/08/20 04:48 TSH 2.84 uIU/mL (0.47-4.68) 04/08/20 04:48 Free T4 1.37 ng/dL (0.78-2.19) 04/08/20 04:48 Free T3 pg/mL 2.88 pg/mL (2.77-5.27) 04/08/20 04:48 Urine Color TETO 04/06/20 17:15 Urine Appearance CLOUDY 04/06/20 17:15 Urine pH 7.0 (5.0-9.0) 04/06/20 17:15 Ur Specific Dwight 1.029 04/06/20 17:15 Urine Protein 100 mg/dL (NEGATIVE) H 04/06/20 17:15 Urine Glucose (UA) NEGATIVE mg/dL (NEGATIVE) 04/06/20 17:15 Urine Ketones 80 mg/dL (NEGATIVE) H 04/06/20 17:15 Urine Blood MODERATE (NEGATIVE) H 04/06/20 17:15 Urine Nitrite NEGATIVE (NEGATIVE) 04/06/20 17:15 Urine Bilirubin NEGATIVE (NEGATIVE) 04/06/20 17:15 Urine Urobilinogen 4.0 mg/dL (<2.0) H 04/06/20 17:15 Ur Leukocyte Esterase LARGE (NEGATIVE) H 04/06/20 17:15 Urine WBC (Auto) >182 /HPF 04/06/20 17:15 Urine RBC (Auto) 17 /HPF 04/06/20 17:15 Urine WBC Clumps FEW /HPF 04/06/20 17:15 Squamous Epi Cells Auto 8 /HPF 04/06/20 17:15 U Non-Squamous Epis Auto 2 /HPF 04/06/20 17:15 Urine Mucus (Auto) MANY /LPF 04/06/20 17:15 Urine Ascorbic Acid NEGATIVE (NEGATIVE) 04/06/20 17:15 COVID-19 Source See comment 04/06/20 16:15 COVID-19 ([facility]) Not Detected (Not Detect) 04/06/20 16:15 Influenza A (Rapid) NEGATIVE (NEGATIVE) 04/06/20 16:15 Influenza B (Rapid) NEGATIVE (NEGATIVE) 04/06/20 16:15 Group A Strep Rapid NEGATIVE (NEGATIVE) 04/06/20 16:15 04/06/20 04/06/20 17:00 17:00 Troponin I < 0.012 NT-Pro-B Natriuret Pep 713 H Impressions: Chest X-Ray 04/06/20 13:27 IMPRESSION: NO ACUTE RADIOGRAPHIC FINDING IN THE CHEST. Head CT 04/06/20 16:52 IMPRESSION: NORMAL BRAIN CT WITHOUT CONTRAST. EVIDENCE OF ACUTE STROKE: NO. Venous Doppler Study 04/07/20 14:54 IMPRESSION: No DVT in the left lower extremity. Plan Plan of Treatment: Syncope - Dr. Sykes has arranged for you to have a 30-day Holter monitor sent to your house. Follow up with Dr. Sykes for results. Afib - Heart rate was consistently in the 50s. Decreased your amiodarone dose to 100 mg amiodarone daily. Cough - This is likely from a viral process and does not require antibiotics at this time. Your history of reflux may also be the cause of the cough. Please continue your home dose Protonix 40mg BID. - Recommend you refrain from eating spicy food, coffee, tomato-based foods, peppermint or chocolate. - Recommend no eating after 6pm. - Recommend sleeping with your head elevated. Left lower leg swelling - Imaging showed no blood clot. Recommend elevating your legs daily to decrease swelling and pain. Goals: Please follow up with your primary care within on week of discharge. Please follow up with Dr. Sykes regarding halter monitor results. Time Spent: Greater than 30 Minutes Stroke Is this a Stroke Patient?: No Acute Heart Failure Is this a Heart Failure Patient?: No
[2020-04-08] MEDS ORDERED: MONTELUKAST SODIUM 10 MG TABLET PO SCH (18:00)
--- NOTE | 2020-04-08 18:56 | Progress Note ---
Provider Note Provider Note: CARDIOLOGY PROGRESS NOTE by Dr. Maria Eugenia Day on 04/08/2020. OBJECTIVE: There is no further episodes of dizziness or syncope. Her blood pressure remains normal. There is no bradycardia or tachyarrhythmias seen on the monitor. There is no recurrence of atrial fibrillation. She states she still has cough which is more during the nighttime and when she is lying down. This most likely secondary to acid reflux. Her Covid test is negative. She has no shortness of breath. There is no PND or orthopnea. PHYSICAL EXAMIBATION: The patient is morbidly obese in no acute distress Selected Entries 04/08/20 04/08/20 04/08/20 07:00 07:38 08:29 Temperature 98.1 F Pulse Rate 64 Heart Rate ( 59 Monitors) Blood Pressure 121/50 L Blood Pressure 73 Mean O2 Sat by Pulse 94 Oximetry Oxygen Delivery Room Air Method ( includes room air) 04/08/20 10:00 Temperature 98.1 F Pulse Rate Heart Rate ( Monitors) Blood Pressure Blood Pressure Mean O2 Sat by Pulse Oximetry Oxygen Delivery Method ( includes room air) HEAD: Is atraumatic normocephalic. EYES: Pupils equal round regular reactive light accommodation. There is mild conjunctival pallor. There is no scleral icterus. EARS: Tympanic membranes are intact. External auditory canals are clear. NOSE: There is no deviated nasal septum. There is no inflammation of the nasal mucous membrane. MOUTH: Mucous membranes of the mouth is slightly dr y. There is no ulcers. There is no bleeding from the gums. THROAT: There is no redness of the oropharynx. There is no exudates. SKIN: There is no skin rashes or skin lesions. There is no petechia or ecchymosis NECK: Is supple. There is no JVD. Carotids are equal there is no bruit. There is no lymphadenopathy. There is no goiter. There is no accessory muscle respiration use. Trachea central. LUNGS: Is clear to auscultation percussion without any rhonchi rales wheezing. HEART: S1-S2 is heard. S1 is of normal intensity. There is no S3 gallop. There is no S4 gallop. There is systolic murmur left sternal border and the apex there is no rub. ABDOMEN: Is obese. Nontender. There is no hepatosplenomegaly. Bowel sounds are well heard. EXTREMITIES: Femorals are deep. Femorals are diminished. There is no femoral bruits. Leg pulses are well felt. There is no pedal edema. There is no DVT or cellulitis. There is no cyanosis or clubbing. [employer] PRINCIPAL: The patient is conscious awake oriented x3 with no focal deficits. PSYCHIATRIC: Patient judgment insight are intact her affect is normal. Labs- All tests 24 hr 04/06/20 04/07/20 04/08/20 16:15 21:20 04:48 POC Glucose 158 H Total Bilirubin 0.7 Direct Bilirubin 0.1 Neonat Total Bilirubin Not Reportable Neonat Direct Bilirubin Not Reportable Neonat Indirect Bili Not Reportable AST 35 ALT 27 Alkaline Phosphatase 92 Total Protein 6.3 Albumin 3.5 TSH Free T4 Free T3 pg/mL COVID-19 ([facility]) Not Detected 04/08/20 04/08/20 04/08/20 04:48 07:41 11:39 POC Glucose 150 H 143 H Total Bilirubin Direct Bilirubin Neonat Total Bilirubin Neonat Direct Bilirubin Neonat Indirect Bili AST ALT Alkaline Phosphatase Total Protein Albumin TSH 2.84 Free T4 1.37 Free T3 pg/mL 2.88 COVID-19 ([facility]) Chest X-Ray 04/06/20 13:27 IMPRESSION: NO ACUTE RADIOGRAPHIC FINDING IN THE CHEST. Head CT 04/06/20 16:52 IMPRESSION: NORMAL BRAIN CT WITHOUT CONTRAST. EVIDENCE OF ACUTE STROKE: NO. Venous Doppler Study 04/07/20 14:54 IMPRESSION: No DVT in the left lower extremity. Echocardiogram findings discussed with the patient in detail. IMPRESSION/RECOMMENDATION: 1. Recurrent episodes of syncope of short duration.? Etiology. Will decrease the patient's amiodarone to 100 mg p.o. daily. We will check the patient's 30- day event monitor as an outpatient to see if there is any bradycardia or tachyarrhythmia. Note echo shows normal LV ejection fraction and the patient is on amiodarone hence doubt ventricular arrhythmia as cause of symptoms of syn cope. Most likely secondary to bradycardia due to arrhythmia versus paroxysms of atrial fibrillation. A 30-day outpatient event monitor is definitely indicated. The patient's thyroid function tests and liver function tests are normal. 2. History of 3 weeks of intermittent coughing which is nonproductive of any sputum, but associated with fever.: Patient very vague about this. Patient's Covid19 test is negative. This is most likely secondary to patient's acid reflux. Influenza testing has been negative so far await Covid19 test results. 3. Paroxysmal atrial fibrillation, with no recurrence. Maintaining sinus rhythm on amiodarone. Patient off chronic anticoagulation after watchman procedure. 4. Coronary artery disease. History of stent in the LAD and diagonal and history of moderate LAD lesion, with no angina. No evidence of acute coronary event this admission. 5. Hypertension: Blood pressure well controlled. 6. Diabetes mellitus: Continue current antidiabetic regimen and Accu-Cheks as per protocol. 7. Chronic kidney disease stage III. 8. History of bipolar disorder: Stable. 9. GERD symptoms: Recommend proton pump inhibitor treatment also the patient advised to raise the head end of the bed by 6 inches. She also has been recommended not to eat after 6 PM. 10. Prior history of GI bleed secondary to AV malformation. No recent symptoms of dark stools or evidence of any symptoms of GI bleed. Hemoglobin is stable. 11. Morbid obesity. In view of the patient being on amiodarone would check the patient's liver and thyroid function tests. Medications reviewed. Medications adjusted medical regimen management plan discussed with attending provider on the case. 40 minutes spent as patient with more than 50% time spent in direct patient care. Medical decision making is of moderate complexity. Will sign off. Will follow patient in the office. We will arrange for with a 14-day event monitor
== END 2020-04-08 12:55 | disposition home or self-care (01) ==
LOC: ER 12:11 → EH 18:36 → 3W 21:02
PROVIDERS: ADMIT Internal Medicine; ATTEND Physician Assistant
DX: R55 Syncope and collapse (principal); M79.89 Other specified soft tissue disorders; Z20.828 Contact with and (suspected) exposure to other viral communicable diseases; Z95.5 Presence of coronary angioplasty implant and graft; R05 Cough; I25.10 Atherosclerotic heart disease of native coronary artery without angina pectoris; E66.01 Morbid (severe) obesity due to excess calories; I48.0 Paroxysmal atrial fibrillation; K21.9 Gastro-esophageal reflux disease without esophagitis; E11.22 Type 2 diabetes mellitus with diabetic chronic kidney disease; E11.21 Type 2 diabetes mellitus with diabetic nephropathy; I12.9 Hypertensive chronic kidney disease with stage 1 through stage 4 chronic kidney disease, or unspecified chronic kidney disease; N18.31 Chronic kidney disease, stage 3a; R19.7 Diarrhea, unspecified; R00.1 Bradycardia, unspecified; Z79.82 Long term (current) use of aspirin; Z79.899 Other long term (current) drug therapy; Z23 Encounter for immunization; Z79.4 Long term (current) use of insulin; R50.9 Fever, unspecified; Q27.33 Arteriovenous malformation of digestive system vessel; E78.5 Hyperlipidemia, unspecified; F31.70 Bipolar disorder, currently in remission, most recent episode unspecified; Z98.890 Other specified postprocedural states; Z85.42 Personal history of malignant neoplasm of other parts of uterus; M19.90 Unspecified osteoarthritis, unspecified site; Z96.653 Presence of artificial knee joint, bilateral; Z82.49 Family history of ischemic heart disease and other diseases of the circulatory system; Z82.3 Family history of stroke; Z68.38 Body mass index [BMI] 38.0-38.9, adult; Z87.19 Personal history of other diseases of the digestive system
CPT/HCPCS: 93005; 99285; 36415 ×3; 87070; 84439; 87880; 82962 ×3; 82550; 84443; 85025; 85027; 80076; 80048; 80053; 81001; 84484; 84481; 85379; 87804; 83880; 93306; 93971; 71045; 70450; 90686; 93010; G0378 ×4; G0008; U0003; A9270 ×11; J3490 ×3; C9803; 87635; 90471; J1815